=== PATIENT | male | born 1970 | race Caucasian/White ===

== ENCOUNTER 2017-06-23 12:59 | Observation (INO) | payer MEDICARE, OTHER ==
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
[2017-06-23 14:00] LABS: INR 1.02 (0.8-3.0); PROTIME 11.4 SECONDS (8.83-12.87)
[2017-06-23 14:04] LABS: BASOPHIL % 0.3 % (0.0-0.4); Eosinophil % 1.6 % (0.00-5.0); Lymphocytes % 16.7 % (24.0-44.0); Mean Cell Volume 83.9 fl (78-100); Monocytes % 10.4 % (0.0-12.0); Platelet Count 279 K/mm3 (150-450); Red Blood Count 5.35 M/mm3 (4.1-5.6); Red Cell Distribution Width 13.1 % (11.5-14.0); White Blood Count 9.3 K/mm3 (4.0-10.5)
[2017-06-23 14:10] LABS: ALBUMIN 3.8 g/dL (3.4-5.0); ALKALINE PHOSPHATASE 115 U/L (46-116); ANION GAP 13.4 MEQ/L (5-15); BLOOD UREA NITROGEN 16 mg/dL (9-20); CHLORIDE 99 mEq/L (98-107); Carbon Dioxide 27.4 mEq/L (21-32); ETHYL ALCOHOL < 0.010 % (0.00-0.01); Glucose 277 MG/DL (70-110); LIPASE 105 U/L (73-393); MAGNESIUM 2.1 mg/dL (1.8-2.4); SGOT/AST 15 U/L (15-37); SGPT/ALT 23 U/L (12-78); SODIUM 136 mEq/L (136-145); Total Protein 7.7 gm/dL (6.4-8.2)
[2017-06-23 14:18] LABS: ACETAMINOPHEN < 2.0 ug/ml (10-30)
[2017-06-23] MEDS ORDERED: THIAMINE 200 MG/2 ML IM ONE (14:57)
[2017-06-23] MEDS ORDERED: THIAMINE 200 MG/2 ML ONE (15:09)
[2017-06-23 15:33] LABS: Bilirubin NEGATIVE (NEGATIVE); Blood NEGATIVE Ery/ul (0-5); COMPLETE URINE MICROSCOPIC? YES; Collection Type VOID; Glucose 1000 mg/dL (NEGATIVE); Leukocyte Esterase NEGATIVE (NEGATIVE)
[2017-06-23 15:34] LABS: ADD URINE CULTURE? NO (NO); Bacteria RARE /HPF (NEGATIVE); Epithelial Cells RARE /HPF (FEW)
[2017-06-23] MEDS ORDERED: Sodium Chloride 0.9% 1000 ML 1,000 ML IV SCH (16:50)
[2017-06-23] MEDS ORDERED: TYLENOL 325 MG PO PRN (16:50)
[2017-06-23] MEDS ORDERED: NovoLIN R SQ PRN (16:50)
[2017-06-23 16:57] VITALS: BP 140/93; PULSE 75; O2SAT 93
[2017-06-23] MEDS ORDERED: Sodium Chloride 0.9% 1000 ML 1,000 ML ONE (17:23)
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
--- NOTE | 2017-06-23 19:24 | XRAY ---
Indication: Disorientation. Altered mental status. Multiple contiguous axial images obtained through the head without contrast. Comparison: None. Normal appearing brain parenchyma, ventricles, and bony calvarium. Visualized paranasal sinuses and mastoid air cells are clear. Impression: Normal CT head without contrast exam. Comment: Preliminary interpretation was made by [facility]. No discrepancy. CTDI 68.81
== END 2017-06-23 18:10 | disposition left against medical advice (07) ==
LOC: ED 12:59 → MED SURG 16:45
PROVIDERS: ADMIT General Practice; ATTEND General Practice
DX: R41.0 Disorientation, unspecified (principal); E11.9 Type 2 diabetes mellitus without complications; Z72.0 Tobacco use
CPT/HCPCS: 93041; 96372; 99285; 36000; 93005; 81000; 85610; 36415; 83690; 83735; 80307 ×2; 85025; 80053; 84484; 71010; 70450; G0481 ×2; G0378

== ENCOUNTER 2018-01-08 19:51 | Emergency (ER) | payer MEDICARE ==
[2018-01-08] MEDS ORDERED: KEFLEX 500 MG PO ONE (19:59)
[2018-01-08] MEDS ORDERED: XYLOCAINE 1% HCL 20 ML MDV IJ ONE (19:59)
[2018-01-08] MEDS ORDERED: Adacel Vial IM ONE ×2 (19:59→20:08)
[2018-01-08] MEDS ORDERED: XYLOCAINE 1% HCL 20 ML MDV ONE (20:04)
--- NOTE | 2018-01-08 20:05 | ERPHSYRPT ---
- History of Present Illness Time Seen by Provider: 01/08/18 19:55 Source: patient, other (spouse) Exam Limitations: no limitations Physician History: Pt noticed painful lumps growing in his left armpit 3 days ago, it started draining pus today. He denies fever, chills, headaches, vomiting, other complaints. Timing/Duration: day(s) (3) Quality: painful Severity: moderate Location: axillary (L) Possible Causes: no cause identified Modifying Factors: Improves With: other (none) Associated Symptoms: denies symptoms Allergies/Adverse Reactions: No Known Drug Allergies Allergy (Verified 01/08/18 20:04) Hx Tetanus, Diphtheria Vaccination/Date Given: No Hx Influenza Vaccination/Date Given: No Hx Pneumococcal Vaccination/Date Given: Yes - Review of Systems Constitutional: No Symptoms Skin: Other (abscesses in left armpit) All Other Systems: Reviewed and Negative - Past Medical History Pertinent Past Medical History: Yes Cardiac History: Hypertension Endocrine Medical History: Diabetes Type II Other Medical History: poor historian - Past Surgical History Past Surgical History: Yes Gastrointestinal: Appendectomy Musculoskeletal: Orthopedic Surgery Other Surgical History: right knee surgery - Social History Smoking Status: Current some day smoker Exposure to second hand smoke: Yes Drug Use: none Patient Lives Alone: No - Nursing Vital Signs Nursing Vital Signs: Initial Vital Signs Temperature 98.4 F 01/08/18 19:55 Pulse Rate 109 H 01/08/18 19:55 Respiratory Rate 18 01/08/18 19:55 Blood Pressure 185/114 01/08/18 19:55 O2 Sat by Pulse Oximetry 97 01/08/18 19:55 Pain Scale Pain Intensity 10 - Physical Exam General Appearance: no apparent distress Eye Exam: eyes nml inspection Ears, Nose, Throat Exam: normal ENT inspection Neck Exam: normal inspection, non-tender, supple Respiratory Exam: normal breath sounds, lungs clear, airway intact, No chest tenderness, No respiratory distress Cardiovascular Exam: regular rate/rhythm, normal heart sounds, normal peripheral pulses, No murmur Gastrointestinal/Abdomen Exam: soft, normal bowel sounds, No tenderness Back Exam: normal inspection, No CVA tenderness Extremity Exam: normal inspection, other (3 abscesses in the left armpit, one one the anterior pectoral fold, the one in the armpit is draining pus, sizes 2- 3 cm each. The skin is indurated in the armpit alltogether, but no severe edema , or redness, good distal pulses and sensaation.) Neurologic Exam: alert, oriented x 3 Skin Exam: normal color, warm, dry, No rash Lymphatic Exam: No adenopathy SpO2 Interpretation: normal Oxygen Delivery: Room Air Procedures - Incision and Drainage Timeout: Performed Site: left armpit Anesthesia: 1% Lidocaine cc's of anesthesia: other (15) Blade Size: 11 I & D Procedure: betadine prep Results: moderate amount pus Progress: all three abscesses opened with scalpel with 1-2 cm incisions, pus and necrotic tissues removed with gauze pad wiping, and abundant saline irrigation, 1/2 inch packing filled in cavities, bleeding controlled, patient tolerated it well. - Course Nursing assessment & vital signs reviewed: Yes Ordered Tests: Active Orders 24 hr Category Date Time Status ACCUCHECK [Accucheck] STAT Care 01/08/18 20:05 Active CULTURE,WOUND Stat Lab 01/08/18 21:39 Received Medication Summary Discontinued Medications Generic Name Dose Route Start Last Admin Trade Name Beba PRN Reason Stop Dose Admin Hydrocodone Bitart/Acetaminophen 1 tab 01/08/18 21:40 01/08/18 21:47 [place] 5/325 Mg PO 01/08/18 21:41 1 tab STAT ONE Administration Hydrocodone Bitart/Acetaminophen Confirm 01/08/18 21:41 [place] 5/325 Mg Administered 01/08/18 21:42 Dose 1 tab .ROUTE .STK-MED ONE Cephalexin HCl 500 mg 01/08/18 19:59 01/08/18 20:20 Keflex 500 Mg PO 01/08/18 20:00 500 mg STAT ONE Administration Cephalexin HCl Confirm 01/08/18 20:08 Keflex 500 Mg Administered 01/08/18 20:09 Dose 500 mg .ROUTE .STK-MED ONE Diphtheria/Tetanus/Acell Pertussis 0.5 ml 01/08/18 19:59 01/08/18 20:19 Adacel Vial IM 01/08/18 20:00 0.5 ml .ONCE ONE Administration Diphtheria/Tetanus/Acell Pertussis Confirm 01/08/18 20:08 Adacel Vial Administered 01/08/18 20:09 Dose 0.5 ml IM .STK-MED ONE Insulin Human Regular 10 unit 01/08/18 20:42 01/08/18 21:04 Novolin R SQ 01/08/18 20:43 10 unit STAT ONE Administration Insulin Human Regular Confirm 01/08/18 21:03 Novolin R Administered 01/08/18 21:04 Dose 10 unit .ROUTE .STK-MED ONE Lidocaine HCl 5 ml 01/08/18 19:59 01/08/18 20:20 Xylocaine 1% Hcl 20 Ml Mdv IJ 01/08/18 20:00 5 ml STAT ONE Administration Lidocaine HCl Confirm 01/08/18 20:04 Xylocaine 1% Hcl 20 Ml Mdv Administered 01/08/18 20:05 Dose 20 ml .ROUTE .STK-MED ONE - Progress Progress: improved Progress Note: 01/08/18 21:43 Accuceck was 479, he admits not taking his diabetic medications, he was administered 10 U Insulin SQ. 01/08/18 22:20 Blood sugar rechecked: 336, feels better, will discharge in stable condition, to return after 2 days to remove the packings or in case of severe pain, bleeding or fever> 102 F. 01/08/18 22:22 He was also given 1x 5/325 mg R[place] PO, Keflex 500mg and Bactrim DS x1. - Departure Time of Disposition: 22:21 Departure Disposition: Home Clinical Impression: Abscess of axillary region Condition: Stable Critical Care Time: No Referrals: RIAN JOHN MD [ACTIVE STAFF] - Instructions: MRSA (DC), Abscess Incision and Drainage (DC) Additional Instructions: Rest x 2-3 days, change sterile dressing daily, return after 2 days to remove packings! Return if severe pain, bleeding or fever> 102 F! Prescriptions: Cephalexin Mh 500 mg [Keflex 500 mg] 500 mg PO TID #30 capsule Sulfamethoxazole/Trimethoprim [Bactrim Ds Tablet] 1 each PO BID #20 tablet
[2018-01-08] MEDS ORDERED: KEFLEX 500 MG ONE (20:08)
[2018-01-08] MEDS ORDERED: NovoLIN R SQ ONE (20:42)
[2018-01-08] MEDS ORDERED: NovoLIN R ONE (21:03)
[2018-01-08] MEDS ORDERED: NORCO 5/325 MG PO ONE (21:40)
[2018-01-08] MEDS ORDERED: NORCO 5/325 MG ONE (21:41)
[2018-01-08] MEDS ORDERED: BACTRIM DS TABLET PO STA (22:21)
[2018-01-08] MEDS ORDERED: BACTRIM DS TABLET PO ONE (22:23)
[2018-01-08 22:47] VITALS: BP 136/87; PULSE 89; O2SAT 95
== END 2018-01-08 22:46 | disposition home or self-care (01) ==
LOC: ED 19:51
DX: L02.412 Cutaneous abscess of left axilla (principal); E11.9 Type 2 diabetes mellitus without complications
CPT/HCPCS: 10060; 82962; 87070; 87077; 87186; 90471; 90715; 96372; 99284; A9270-GY

== ENCOUNTER 2018-03-03 12:48 | Inpatient (IN) | payer MEDICARE ==
[2018-03-03] MEDS ORDERED: Zofran 4 MG/2 ML VIAL IV PRN (13:20)
[2018-03-03] MEDS ORDERED: Hydromorphone 1 mg/ml Ampule IV PRN (13:21)
[2018-03-03] MEDS ORDERED: TYLENOL 325 MG PO PRN (13:23)
[2018-03-03] MEDS ORDERED: DILAUDID 2 MG INJECTION IV PRN (13:27)
[2018-03-03] MEDS ORDERED: PHARMACY DOSING REQUIRED: VANCOMYCIN IV ONE (13:36)
[2018-03-03] MEDS ORDERED: PHARMACY DOSING REQUEST MC ONE (13:37)
[2018-03-03] MEDS: Sodium Chloride 0.9% 1000 ML 1,000 ML IV SCH (14:20)
[2018-03-03] MEDS: VANCOCIN 1 GM VIAL*** 1 GM in Sodium Chloride 0.9% 250 ML 250 ML IV SCH ×2 (14:20→22:04)
[2018-03-03 14:43] LABS: Hematocrit 39.4 % (42-50); Hemoglobin 13.8 gm/dl (12.5-18.0); Mean Cell Volume 83.3 fl (78-100); Mean Corpuscular Hemoglobin 29.2 pg (26-32); Mean Platelet Volume 10.4 fl (6-9.5); Platelet Count 312 K/mm3 (150-450); Red Blood Count 4.73 M/mm3 (4.1-5.6); Red Cell Distribution Width 12.7 % (11.5-14.0)
[2018-03-03 15:05] LABS: ALBUMIN 3.6 g/dL (3.5-5.0); ALKALINE PHOSPHATASE 258 U/L (38-126); ANION GAP 14.6 MEQ/L (5-15); BLOOD UREA NITROGEN 14 mg/dL (9-20); CHLORIDE 88 mmol/L (98-107); Calcium 8.8 mg/dL (8.4-10.2); Carbon Dioxide 27 mmol/L (22-30); Creatinine 1 0.86 mg/dL (0.66-1.25); Potassium 4.3 mmol/L (3.5-5.1); SGOT/AST 16 U/L (17-59); SGPT/ALT 24 U/L (0-50); SODIUM 125 mmol/L (137-145); Total Protein 6.9 g/dL (6.3-8.2)
--- NOTE | 2018-03-03 15:09 | XRAY ---
Indication: Back abscess. Multiple contiguous axial images obtained through the chest without contrast as ordered. Cutaneous marker placed over the region of interest. Comparison: None The left back demonstrates large area of cutaneous/subcutaneous induration presumed inflammatory/infectious with small subcutaneous fluid. The majority of the left latissimus dorsi muscle is also prominent and possibly reactive. Lack of contrast precludes further characterization. No obvious walled off fluid collection, air bubbles, or osseous destructive process. There are a few prominent fatty left axillary lymph nodes, largest 1.5 x 3.5 cm presumed reactive. Examination of the lung parenchyma demonstrates minimal lingular and medial right middle lobe fibrosis/scarring. Tiny left apical calcified granuloma. No suspicious pulmonary mass, infiltrate, or effusion. Heart is not enlarged. Aorta is normal in course and caliber. [place] left hilar calcified nodes. No pathologic mediastinal lymphadenopathy. Bony thorax intact with minimal degenerative changes throughout the spine. No suspicious bony lesions. Limited upper abdomen demonstrates a few tiny calcified splenic granulomas. Spleen is enlarged measuring 14.2 cm in greatest axial dimension. Impression: 1. Large area of subcutaneous and deep soft tissue induration/inflammation involving the left back as detailed. Small subcutaneous fluid but no walled off fluid collection or air bubbles to suggest abscess on this noncontrast exam. Prominent left axillary lymph nodes presumed reactive. 2. No acute cardiopulmonary abnormalities. 3. Incidental splenomegaly and evidence for granulomatous disease. CT DI 21.10
[2018-03-03 15:15] LABS: Glucose 500 mg/dL (74-106)
[2018-03-03] MEDS: Lantus Insulin SQ SCH (15:43)
[2018-03-03] MEDS: NovoLOG Insulin SQ PRN ×3 (15:43→23:27)
[2018-03-03] MEDS ORDERED: Lactated Ringers 1,000 ML IV ONE (15:59)
[2018-03-03] MEDS ORDERED: Lactated Ringers 1,000 ML IV SCH (16:30)
[2018-03-03] MEDS ORDERED: Sodium Chloride 0.9% 1000 ML 1,000 ML ONE (16:41)
[2018-03-03] MEDS ORDERED: TRANDATE 100 MG/20 ML MDV FOR DRIP IV ONE (17:48)
[2018-03-03] MEDS: Zosyn 3.375GM/100 Ml D5W 3.375 GM/100 ML IVPB IV SCH ×2 (18:35→23:59)
[2018-03-04] MEDS: NORCO 5/325 MG PO PRN ×4 (00:02→21:42)
[2018-03-04] MEDS: Sodium Chloride 0.9% 1000 ML 1,000 ML IV SCH ×2 (03:33→17:35)
[2018-03-04 05:59] LABS: Hemoglobin 11.8 gm/dl (12.5-18.0); Mean Corpuscular Hgb Concent. 33.7 g/dl (32-36); Mean Platelet Volume 9.8 fl (6-9.5); Platelet Count 302 K/mm3 (150-450); Red Blood Count 4.07 M/mm3 (4.1-5.6); Red Cell Distribution Width 12.7 % (11.5-14.0); White Blood Count 21.5 K/mm3 (4.0-10.5)
[2018-03-04 06:05] LABS: Mean Corpuscular Hemoglobin 28.9 pg (26-32)
[2018-03-04] MEDS: Zosyn 3.375GM/100 Ml D5W 3.375 GM/100 ML IVPB IV SCH ×4 (06:18→22:47)
[2018-03-04] MEDS: VANCOCIN 1 GM VIAL*** 1 GM in Sodium Chloride 0.9% 250 ML 250 ML IV SCH ×3 (06:45→21:41)
[2018-03-04] MEDS: Lantus Insulin SQ SCH (07:58)
[2018-03-04] MEDS: NovoLOG Insulin SQ PRN ×4 (08:11→21:42)
[2018-03-04] MEDS ORDERED: Lantus Insulin SQ ONE (08:15)
--- NOTE | 2018-03-04 08:33 | XRAY ---
Indication: Drowsiness. Status post abscess drainage. Multiple contiguous axial images obtained through the head without contrast. Comparison: June 23, 2017. Again normal appearing brain parenchyma, ventricles, and bony calvarium. Visualized paranasal sinuses and mastoid air cells are clear. Impression: Normal CT head without contrast exam. CT DI 67.60
--- NOTE | 2018-03-04 08:43 | CONS ---
CONSULT DATE: 03/03/2018 This patient is seen for Dr. Yang Ferris who was neonatal specialist for our group today. HISTORY: This is a 47 year-old gentleman apparently a poorly controlled diabetic, thought he was bit by something in his upper and lower back three days ago with increased pain, redness, swelling and some drainage. He was running a fever yesterday, slurring some words. It was direct admit by Dr. Lincoln. He also has got a small area up on his back. The family reported he had some infection drained a few months ago, a little vague on the details. PAST MEDICAL HISTORY: Obesity, hypertension, diabetes mellitus type 2. MEDICATIONS: He apparently does not take any medications. ALLERGIES: NKDA. FAMILY HISTORY: Seizure disorder in the family it sounds like. SOCIAL HISTORY: No smoking or chew tobacco. REVIEW OF SYSTEMS: Twelve systems reviewed per admission assessment, history and physical and as noted above. No current chest pain or palpitations other systems negative or noncontributory as above and per preadmission questionnaire. He did have blood sugar 500 earlier and is down to 300 now. His temperature is 100.6F at his family doctor earlier. He had a blood pressure 130/60, pulse 78. PHYSICAL EXAMINATION: GENERAL: A chronically ill gentleman noncompliant diabetic. NECK: No JVD. Posterior upper neck has got a purulent area likely underlying small abscess. BACK: Upper back towards the left lateral area large indurated with some drainage and some purulence consistent with abscess whether from infected cyst, whether from bite or other etiology is unclear. CHEST: Equal excursion, nonlabored breathing. CVS: Regular rate and rhythm. ABDOMEN: Obese, soft. EXTREMITIES: He has some healed sores on his lower extremities. NEURO: He is moving extremities symmetrically. LAB DATA AND TESTS: His blood sugar was 500 and is down to 300 and some. Lactic acid 1.6. White blood cell count 22, hemoglobin 13.8. IMPRESSION: Left flank infection upper back, flank area infection/cellulitis likely underlying abscess whether from infected ruptured cyst versus bite or other etiology as well as much smaller area upper posterior neck. He would benefit from drainage and debridement of these areas and cultures. Risks and benefits explained in detail but not limited to bleeding or infection, risk of ongoing infection possibly requiring other procedures, general risk of anesthesia, deep venous thrombosis, pulmonary embolism or pneumonia. The fact that he would need to keep his blood sugars tighter control and continue management after debridement and drainage. He would need packing. He could heal by secondary intent. The wound care team would decide whether vac or other treatments would benefit. They understand. Again, this patient was seen for Dr. Yang Ferris who asked that I stop by to see him and address the infection as he is neonatal specialist for our group today and he is tied up in [place] at the moment. If agreeable to proceed will proceed with debridement and drainage of back and posterior neck infection and wounds.
--- NOTE | 2018-03-04 09:10 | OP ---
SURGERY DATE/TIME: 03/03/2018 1622 This patient was seen for Dr. Yang Ferris who was consulting marine engineer for our group and asked that I stop by and check on his noncompliant diabetic with extensive infection. PREOPERATIVE DIAGNOSIS: Necrotizing infection, sepsis, abscesses neck, back and left axilla. POSTOPERATIVE DIAGNOSIS: Necrotizing infection, sepsis, abscesses neck, back and left axilla. PROCEDURE: 1) Excisional debridement of devitalized skin, subcutaneous fat and fascia area 15 x 11 x 2.5 to 3 cm deep on the back. 2) The axilla 3.5 x 2 cm wide by 1.5 cm deep skin, subcutaneous fat and underlying fascia (also removal of foreign body retained packing in this wound). 3) Excisional biopsy of skin, subcutaneous fat and portion of underlying devitalized fascia 2.5 x 2 cm wide by 2 cm deep posterior upper neck. SURGEON: Dr. Frank Palm. ANESTHESIA: General. ESTIMATED BLOOD LOSS: Minimal. INDICATIONS: As noted above. Risks and benefits explained in detail and not limited to and consent obtained. DESCRIPTION OF PROCEDURE AND FINDINGS: The patient is taken to the operating room. He was draining more in his axilla and it was felt that this ought to be opened under general anesthetic. He was prepped and draped in usual sterile fashion. Lateral position per anesthesia and OR staff positioning. After official time out and no disagreement with planned procedure, starting with the neck initially dime-sized opening was made this required extension as he had some foul purulence underneath with some devitalized fascia and that required excisional debridement of devitalized subcutaneous fat and skin an area about 2.5 cm long, 2 cm wide, 2 cm deep. Hemostasis obtained with pin point cautery. The wound is irrigated out. Appeared to be debrided down to viable tissue in all quadrants. A small piece of Surgicel with some saline soaked wet to dry packing placed. Attention is then turned to the left axilla this is a large fluctuant open area draining a large amount of purulence. Debrided the skin 3.5 cm to 2 cm wide, debriding the devitalized subcutaneous fat underneath and a portion of the underlying fascia about 1.5 cm deep. It should be noted that there was 0.5 inch retained packing in this wound that passed off. Appeared to be viable tissue in deep tissue. Pin point cautery. Small piece of Surgicel and some saline soaked wet to dry dressing placed. Attention then turned to the much larger wound on his back. It was opened with large spindled-shaped excision down to the foul necrotic subcutaneous fat, necrotic underlying fascia. This fascia debrided back to friable appearing tissue. This was an area of 15 cm long, 11 cm wide and about 2.5 to 3 cm deep. It required debriding out edges reaching what appeared to be extent of the devitalized subcutaneous fat and fascia down to viable tissue. Small pulsatile vessel in the base controlled with 3-0 Vicryl suture LigaSure otherwise pin point cautery used. Copious amount of irrigation irrigating until clear. There was no specific vessel to cauterize or ligate at this point. A small piece of Surgicel as well as wet to dry and normal saline wet to dry placed. The patient tolerated the procedure well as possible. Findings discussed with the family out in the waiting area. I will see the sandoval back in the office in a couple of weeks. In the meantime, continue starting tomorrow change packing of normal saline wet to dry and will follow this on a PRN basis as needed. Continue antibiotics. Disposition per his medical physician. Continue normal saline wet to dry until the wound team has any other recommendations. He might need a vac-type apparatus on his back in particular. Again, this patient was seen for Dr. Yang Ferris who is consulting marine engineer for our group today.
[2018-03-04] MEDS ORDERED: SUBLIMAZE 250 MCG/5 ML IJ ONE (09:51)
[2018-03-04] MEDS: ENOXAPARIN SODIUM SQ SCH (11:02)
[2018-03-04 12:28] LABS: ALKALINE PHOSPHATASE 209 U/L (38-126); ANION GAP 11.4 MEQ/L (5-15); BLOOD UREA NITROGEN 15 mg/dL (9-20); CHLORIDE 95 mmol/L (98-107); Carbon Dioxide 28 mmol/L (22-30); Creatinine 1 0.93 mg/dL (0.66-1.25); Glucose 320 mg/dL (74-106); Potassium 4.1 mmol/L (3.5-5.1); SGOT/AST 15 U/L (17-59); SGPT/ALT 19 U/L (0-50); SODIUM 130 mmol/L (137-145); Total Protein 6.3 g/dL (6.3-8.2)
[2018-03-04] MEDS: MORPHINE SULFATE 2 MG INJ IV PRN (14:14)
[2018-03-05] MEDS: VANCOCIN 1 GM VIAL*** 1 GM in Sodium Chloride 0.9% 250 ML 250 ML IV SCH ×3 (05:09→21:30)
[2018-03-05] MEDS ORDERED: TROUGH DRUG LEVELS IJ ONE (05:30)
[2018-03-05] MEDS: Zosyn 3.375GM/100 Ml D5W 3.375 GM/100 ML IVPB IV SCH ×4 (06:47→23:38)
[2018-03-05] MEDS: NORCO 5/325 MG PO PRN ×2 (06:56→22:00)
[2018-03-05] MEDS ORDERED: Lantus Insulin SQ SCH (08:00)
[2018-03-05] MEDS: NovoLOG Insulin SQ PRN ×4 (08:03→21:31)
--- NOTE | 2018-03-05 08:16 | PROG NOTE ---
DATE: 03/04/2018 Chart is reviewed and events noted. The patient underwent incision and drainage of abscess on his left upper back, left axilla and scalp area. Post-procedure he was transferred back to the medical floor. He was continued on IV antibiotics and analgesics. PHYSICAL EXAMINATION: At the time of his evaluation earlier this afternoon the patient was alert, awake, lying comfortably in bed. He denied any complaints as such, overall feeling much better, appeared comfortable. VITAL SIGNS: Blood pressure 119/61, heart rate 77, respiratory rate 18, temperature 97.7F. Oxygen saturation 93 to 94% on room air. HEENT: No pallor is present. Dressing present on posterior aspect of scalp. NECK: No JVD is present. CVS: S1, S2 present. RESPIRATORY: Breath sounds are bilaterally diminished, clear to auscultation. ABDOMEN: Obese, soft, nontender. NEURO: He is alert, awake, answers simple questions. EXTREMITIES: No edema on bilateral lower extremities. BACK: Revealed large dressing on left upper back. LABORATORY DATA AND TESTS: Labs from 03/03/2018 were notable for CBC with white blood cell of 22. Today's CBC showed white blood cell 21.5, hemoglobin 11.8 and hematocrit 35. Initial CMP was notable for sodium of 125, glucose of 500. Hemoglobin A1C was 12.60. Lactic acid was within normal limits. Today's CMP showed sodium 130, BUN 15, creatinine 0.9, glucose 320. Liver function test was essentially unremarkable except alkaline phosphatase 258 yesterday and 209 today. Work up shows gram positive organism in all three sites. Identification and sensitivities are pending. Blood cultures showed gram positive rosalie, gram negative rosalie on preliminary results. CT scan of head from 03/03/[address], no acute changes. Chest CT from yesterday showed large area of subcutaneous and deep soft tissue induration/inflammation involving left back, mild subcutaneous fluid but no walled off fluid collection or air bubbles from left axillary lymph nodes. No acute cardiopulmonary abnormality. Medications were reviewed. ASSESSMENT: A 47 year old male with impression: 1) Abscess/cellulitis left upper back status post I&D. 2) Abscess scalp status post I&D. 3) Abscess left axilla status post I&D. 4) Diabetes mellitus, suboptimally controlled. 5) Bacteremia. 6) History of noncompliance with medications. 7) Lethargy, resolved. PLAN: Continue IV antibiotics. Follow up cultures. Continue post-procedure care/dressing changes per surgery recommendations. Lantus was added. Diabetic teaching. Continue to monitor Accu-Chek. Continue to monitor serial electrolytes. Plan of care was discussed with the patient and his . They seem to be in understanding and agreement. I discussed the case with the patient's nurse, Rosalee, who was present at the time of evaluation. The patient's clinical condition, work-up results and plan of management as outlined was discussed with the patient and his . Again, compliance with medications, diet and wound care was stressed with the patient.
[2018-03-05 08:29] LABS: ANION GAP 10.3 MEQ/L (5-15); BLOOD UREA NITROGEN 15 mg/dL (9-20); CHLORIDE 98 mmol/L (98-107); Calcium 8.1 mg/dL (8.4-10.2); Carbon Dioxide 26 mmol/L (22-30); Glucose 243 mg/dL (74-106); Potassium 3.9 mmol/L (3.5-5.1); SODIUM 131 mmol/L (137-145)
[2018-03-05 08:43] LABS: Hematocrit 33.9 % (42-50); Hemoglobin 11.3 gm/dl (12.5-18.0); Mean Cell Volume 86.7 fl (78-100); Mean Corpuscular Hemoglobin 28.9 pg (26-32); Mean Corpuscular Hgb Concent. 33.3 g/dl (32-36); Mean Platelet Volume 10.5 fl (6-9.5); Platelet Count 302 K/mm3 (150-450); Red Blood Count 3.91 M/mm3 (4.1-5.6); Red Cell Distribution Width 12.7 % (11.5-14.0)
[2018-03-05] MEDS: Sodium Chloride 0.9% 1000 ML 1,000 ML IV SCH ×2 (08:45→23:38)
[2018-03-05] MEDS ORDERED: Quelicin Fliptop 200 MG/10 ML IJ ONE (09:38)
[2018-03-05] MEDS ORDERED: DIPRIVAN 200 MG/20 ML IV ONE (09:38)
[2018-03-05] MEDS: ENOXAPARIN SODIUM SQ SCH (10:22)
[2018-03-05] MEDS: MORPHINE SULFATE 2 MG INJ IV PRN (10:50)
[2018-03-05 11:15] LABS: Slide Review YES
--- NOTE | 2018-03-05 12:04 | PROG NOTE ---
DATE: 03/05/2018 Chart is reviewed and events noted. As per PT and wound care account the patient's upper back area has been draining a lot. Reportedly the patient's left ankle area was noted to have retained packing from prior abscess. The patient had not followed up. The patient states he feels okay. He denies increased pain. He denies any other new complaints. Appears comfortable. PHYSICAL EXAMINATION: VITAL SIGNS: Blood pressure 130/64, heart rate 77, respiratory rate 16, temperature 98.7F. Oxygen saturation 94%. HEENT: No pallor is present. No icterus is noted. NECK: No JVD is present. CVS: S1, S2 present. RESPIRATORY: Breath sounds are bilaterally diminished and clear to auscultation. ABDOMEN: Obese, soft, nontender. NEURO: He is alert, awake, answers simple questions. EXTREMITIES: No edema on bilateral lower extremities. LABORATORY DATA AND TESTS: Labs from today show CBC white blood cell of 17, hemoglobin 11.3, hematocrit 34, PLT 302,000. BMP notable for glucose of 243. BUN 15, creatinine 0.7. Left upper back wound culture from 03/03/2018 showed methicillin resistant staphylococcus aureus. Left axillary wound culture is pending. Calf area wound culture showed methicillin resistant staphylococcus aureus. Blood culture from 03/03/2018 was negative. Left axillary wound culture showed gram negative organism sensitivity pending. Medications were reviewed. ASSESSMENT: A 47 year old male with impression: 1) Abscess/cellulitis left upper back area status post I&D. 2) Abscess of scalp status post I&D. 3) Abscess left axilla status post I&D. 4) Diabetes mellitus suboptimally controlled. 5) Bacteremia. 6) History of noncompliance with medication. PLAN: Continue IV antibiotics. Increase Lantus to 25 units. Continue wound/postoperative care per surgery's recommendations. Likely discharge to swing-bed tomorrow. Continue to follow CBC, electrolytes. The plan was discussed with the patient. He seems to be in understanding and agreement. Discussed with trimming caser, Belinda.
[2018-03-06 05:51] LABS: Granulocyte Absolute (ANC) 9.79 (1.4-6.9); Hematocrit 34.2 % (42-50); Hemoglobin 11.6 gm/dl (12.5-18.0); Mean Cell Volume 85.3 fl (78-100); Mean Corpuscular Hemoglobin 28.9 pg (26-32); Mean Corpuscular Hgb Concent. 33.9 g/dl (32-36); Mean Platelet Volume 9.3 fl (6-9.5); Platelet Count 326 K/mm3 (150-450); Red Blood Count 4.01 M/mm3 (4.1-5.6); Red Cell Distribution Width 12.7 % (11.5-14.0); White Blood Count 12.7 K/mm3 (4.0-10.5)
[2018-03-06] MEDS: Zosyn 3.375GM/100 Ml D5W 3.375 GM/100 ML IVPB IV SCH ×2 (05:55→12:18)
[2018-03-06 06:07] LABS: ALBUMIN 2.9 g/dL (3.5-5.0); ALKALINE PHOSPHATASE 225 U/L (38-126); ANION GAP 9.1 MEQ/L (5-15); BLOOD UREA NITROGEN 12 mg/dL (9-20); CHLORIDE 99 mmol/L (98-107); Calcium 8.3 mg/dL (8.4-10.2); Carbon Dioxide 28 mmol/L (22-30); Creatinine 1 0.67 mg/dL (0.66-1.25); Glucose 256 mg/dL (74-106); Potassium 3.8 mmol/L (3.5-5.1); SGOT/AST 19 U/L (17-59); SGPT/ALT 19 U/L (0-50); SODIUM 132 mmol/L (137-145)
[2018-03-06] MEDS: VANCOCIN 1 GM VIAL*** 1 GM in Sodium Chloride 0.9% 250 ML 250 ML IV SCH ×2 (06:29→14:37)
[2018-03-06] MEDS ORDERED: Lantus Insulin SQ SCH (08:00)
[2018-03-06] MEDS: NovoLOG Insulin SQ PRN ×2 (08:04→12:21)
[2018-03-06 09:30] LABS: ANISOCYTOSIS 1+; BAND 4 % (0.0-2.0); Eosinophil 3 % (0.00-3.0); Lymphocytes 15 % (24-44); Monocyte 12 % (0.0-12.0); Neutrophils 66 % (36.-66.); Nucleated Red Blood Cell 1 %; Platelet Estimate NORMAL (NORMAL); Polychromasia 1+; Total Cells Counted 100
[2018-03-06] MEDS: ENOXAPARIN SODIUM SQ SCH (10:51)
[2018-03-06] MEDS: Sodium Chloride 0.9% 1000 ML 1,000 ML IV SCH (12:20)
[2018-03-06 13:23] VITALS: BP 160/90; PULSE 85; O2SAT 94
--- NOTE | 2018-03-07 09:15 | DS ---
DISCHARGE DIAGNOSES: 1) ABSCESS/CELLULITIS LEFT UPPER BACK STATUS POST INCISION AND DRAINAGE. 2) ABSCESS OF SCALP STATUS POST INCISION AND DRAINAGE. 3) ABSCESS LEFT AXILLA STATUS POST INCISION AND DRAINAGE. 4) DIABETES MELLITUS SUBOPTIMALLY CONTROLLED. 5) BACTEREMIA. 6) HISTORY OF NONCOMPLIANCE WITH MEDICATIONS. 7) LETHARGY, RESOLVED. CONSULTANTS ON CASE: Dr. Palm, Surgery. HOSPITAL COURSE: Aston Villa is a 47 year-old male with past medical history of diabetes mellitus. Reportedly he has stopped taking all of his medicines some time back. Also he was treated for abscess-like area in his left axilla back in December 2017 and did follow up in Dr. Alicia's office for further management of same. I am covering for Dr. Alicia this week and the patient was seen by me in the office on 03/03/2018 with large draining, painful area on left upper back and also abscess on back of his head. As per patient and his these had started two or three days ago. There was no reported history of injury or unusual activity. The patient was noted to be lethargic. The patient was admitted for further work up and management. Lab work up on admission was notable for CBC with white blood cell of 22,000. CMP with sodium 125, glucose 500. Hemoglobin A1C of 12.60. Also, he was noted to be febrile. Lactic acid was within normal limits. He was placed on IV fluids, broad spectrum IV antibiotics. Surgical consultation was requested and the patient underwent I&D of above area. Please refer to my office note from that day for details. Surgical consultation was requested on the patient for I&D of left upper back abscess/cellulitis area as well as I&D of scalp abscess. Additionally he was noted to have prior packing in left axilla abscess there and underwent I&D of the same as well. Post-procedure, he was transferred back to medical floor and was continued on IV antibiotics. He had been started on Lantus and additionally placed on sliding scale and diabetic teaching was provided. He underwent CT scan of chest on 03/03/2018 and that showed large area of subcutaneous and deep soft tissue inflammation/infection involving the left back, small subcutaneous fluid with no walled off fluid collection or air bubbles. No acute cardiopulmonary abnormalities. Additionally in view of his lethargy he had undergone CT scan of his head and that was normal CT. Post-procedure care was continued strictly per surgical recommendations. Also wound care consultation was requested and PT managed wound care per surgery recommendations. During his subsequent course his neck, left upper back as well as axillary wounds were identified to grow methicillin resistant staphylococcus aureus. The patient had already been started on Zosyn and Vancomycin upon admission and those were continued. Blood cultures from 03/03/2018 were negative. However the other culture was noted to have gram-positive cocci in chains and few gram-negative rods. Additional study results are pending. During subsequent course was notable for elevated Accu-Chek for which he was treated accordingly. The rest of his course was essentially more or less unremarkable. He improved clinically. He remained hemodynamically stable. His symptoms of lethargy had resolved. It was discussed with the patient and the extensive nature of his abscess areas and wound care needed as well as need for IV antibiotics and the patient's prior compliance issues, the patient would benefit from swing-bed stay. The patient and his were agreeable with that. After discussion with all consultants on the case the patient was discharged to swing-bed earlier this afternoon. PHYSICAL EXAMINATION: At the time of evaluation prior the patient's discharge he was alert, awake, lying comfortably in bed. He denied any complaints. VITAL SIGNS: Blood pressure 160/90, heart rate 85, respiratory rate 18, temperature 98F. HEENT: No pallor or icterus is noted. NECK: No JVD is present. CVS: S1, S2 present. RESPIRATORY: Breath sounds are bilaterally diminished. ABDOMEN: Obese, soft, nontender. NEURO: He is alert, awake, answers simple questions. EXTREMITIES: No edema on bilateral lower extremities. SKIN: Dressing was present on posterior aspect of scalp (occipital area), left upper back as well as left axilla. LABORATORY DATA AND TESTS: Labs from today showed CBC white blood cell 12.7, hemoglobin 11.6, hematocrit 34.2, PLT 86,000, neutrophils 66, bands 4, lymphocytes 15. CMP was notable for sodium 132, glucose 256, BUN 12, creatinine 0.67, alkaline phosphatase 225. Medications were reviewed. ASSESSMENT: As outlined in discharge diagnoses. PLAN: The patient was admitted with multiple abscesses and uncontrolled diabetes mellitus. He underwent I&D and had been placed on broad spectrum IV antibiotics. All abscess cultures were growing methicillin resistant staphylococcus aureus. He will be continued on Vancomycin. Additionally in view of the patient's bacteremia, the patient will be continued on Zosyn. He appears to be improved clinically however still does continue to need extensive wound care and IV antibiotic. It was discussed with patient and regarding swing-bed stay and they were agreeable with that. The patient was discharged to swing-bed earlier today. He will be admitted under my care. Please refer to discharge medication list from 03/06/2018 for details of medications on discharge. The patient's clinical condition, work-up results and plan of management including plan of discharge were discussed with patient and his . They seem to be in understanding and agreement. The plan was discussed with patient's nurse and also discussed with nurse outreach case manager, Belinda Bobo.
== END 2018-03-06 15:30 | disposition swing bed (61) | DRG 570 ==
LOC: MED SURG 13:02
PROVIDERS: ADMIT General Practice; ATTEND General Practice
PROC: 0JB70ZZ Excision of Back Subcutaneous Tissue and Fascia, Open Approach (ICD-10-PCS; principal; 2018-03-03)
PROC: 0JB50ZZ Excision of Left Neck Subcutaneous Tissue and Fascia, Open Approach (ICD-10-PCS; 2018-03-03)
PROC: 0J9F0ZX Drainage of Left Upper Arm Subcutaneous Tissue and Fascia, Open Approach, Diagnostic (ICD-10-PCS; 2018-03-03)
DX: L02.212 Cutaneous abscess of back [any part, except buttock and flank] (principal); A41.9 Sepsis, unspecified organism; L02.11 Cutaneous abscess of neck; L02.811 Cutaneous abscess of head [any part, except face]; L02.412 Cutaneous abscess of left axilla; R78.81 Bacteremia; L03.312 Cellulitis of back [any part except buttock and flank]; E11.65 Type 2 diabetes mellitus with hyperglycemia; Z91.14 Patient's other noncompliance with medication regimen; R53.83 Other fatigue; I10 Essential (primary) hypertension; B95.62 Methicillin resistant Staphylococcus aureus infection as the cause of diseases classified elsewhere
CPT/HCPCS: 36415; 70450; 71250; 80048; 80053; 80202; 82962; 83036; 83605; 85025; 85027; 87040; 87070; 87077; 87186; 94760; 99140; J0330; J1170; J1650; J2270; J2405; J2543; J2704; J3010; J3370; A9270-GY

== ENCOUNTER 2018-03-06 15:07 | Inpatient (IN) | payer MEDICARE ==
[2018-03-06] MEDS ORDERED: NORCO 5/325 MG PO PRN (16:05)
[2018-03-06] MEDS ORDERED: Zofran 4 MG/2 ML VIAL IV PRN (16:05)
[2018-03-06] MEDS ORDERED: MORPHINE SULFATE 2 MG INJ IV PRN (16:05)
[2018-03-06] MEDS: Sodium Chloride 0.9% 1000 ML 1,000 ML IV SCH (17:20)
[2018-03-06] MEDS: Zestril 5 MG PO SCH (17:20)
[2018-03-06] MEDS: NovoLOG Insulin SQ PRN ×2 (17:22→20:56)
[2018-03-06] MEDS: Zosyn 3.375GM/100 Ml D5W 3.375 GM/100 ML IVPB IV SCH ×2 (17:22→23:47)
[2018-03-06] MEDS: VANCOCIN 1 GM VIAL*** 1 GM in Sodium Chloride 0.9% 250 ML 250 ML IV SCH (20:56)
[2018-03-07] MEDS: Zosyn 3.375GM/100 Ml D5W 3.375 GM/100 ML IVPB IV SCH ×4 (05:16→23:47)
[2018-03-07 05:59] LABS: Granulocyte Absolute (ANC) 12.05 (1.4-6.9); Hematocrit 34.6 % (42-50); Hemoglobin 11.9 gm/dl (12.5-18.0); Mean Corpuscular Hemoglobin 29.2 pg (26-32); Mean Corpuscular Hgb Concent. 34.4 g/dl (32-36); Mean Platelet Volume 9.2 fl (6-9.5); Platelet Count 391 K/mm3 (150-450); Red Blood Count 4.07 M/mm3 (4.1-5.6); Red Cell Distribution Width 12.6 % (11.5-14.0); White Blood Count 15.4 K/mm3 (4.0-10.5)
[2018-03-07] MEDS: VANCOCIN 1 GM VIAL*** 1 GM in Sodium Chloride 0.9% 250 ML 250 ML IV SCH ×3 (06:04→21:38)
[2018-03-07 06:24] LABS: ANION GAP 12.7 MEQ/L (5-15); BLOOD UREA NITROGEN 13 mg/dL (9-20); CHLORIDE 99 mmol/L (98-107); Calcium 8.7 mg/dL (8.4-10.2); Carbon Dioxide 27 mmol/L (22-30); Creatinine 1 0.77 mg/dL (0.66-1.25); Glucose 219 mg/dL (74-106); Potassium 3.9 mmol/L (3.5-5.1); SODIUM 135 mmol/L (137-145)
[2018-03-07 07:16] LABS: BAND 16 % (0.0-2.0); Basophil 1 % (0.0-1.0); Eosinophil 1 % (0.00-3.0); Lymphocytes 10 % (24-44); Metamyelocyte 5 %; Monocyte 9 % (0.0-12.0); Myelocyte 1 %; Neutrophils 57 % (36.-66.); Platelet Estimate NORMAL (NORMAL); Polychromasia 1+; Total Cells Counted 100
[2018-03-07] MEDS: NovoLOG Insulin SQ PRN ×4 (08:21→21:38)
[2018-03-07] MEDS: Lantus Insulin SQ SCH (08:22)
[2018-03-07] MEDS: Zestril 5 MG PO SCH (10:16)
[2018-03-07] MEDS: ENOXAPARIN SODIUM SQ SCH (10:16)
[2018-03-08] MEDS: Zosyn 3.375GM/100 Ml D5W 3.375 GM/100 ML IVPB IV SCH ×3 (05:14→18:15)
[2018-03-08] MEDS: Sodium Chloride 0.9% 1000 ML 1,000 ML IV SCH (05:19)
[2018-03-08] MEDS: TYLENOL 325 MG PO PRN ×2 (05:25→21:02)
[2018-03-08] MEDS: VANCOCIN 1 GM VIAL*** 1 GM in Sodium Chloride 0.9% 250 ML 250 ML IV SCH ×3 (05:55→21:01)
[2018-03-08] MEDS: NovoLOG Insulin SQ PRN ×4 (08:15→21:07)
[2018-03-08] MEDS: Lantus Insulin SQ SCH (08:16)
[2018-03-08] MEDS: Zestril 5 MG PO SCH (11:52)
[2018-03-08] MEDS: ENOXAPARIN SODIUM SQ SCH (11:53)
[2018-03-09] MEDS: Zosyn 3.375GM/100 Ml D5W 3.375 GM/100 ML IVPB IV SCH ×4 (00:03→18:39)
[2018-03-09] MEDS: VANCOCIN 1 GM VIAL*** 1 GM in Sodium Chloride 0.9% 250 ML 250 ML IV SCH ×3 (06:30→21:45)
[2018-03-09] MEDS: NovoLOG Insulin SQ PRN ×4 (08:05→22:08)
[2018-03-09] MEDS: Lantus Insulin SQ SCH (08:06)
[2018-03-09] MEDS: ENOXAPARIN SODIUM SQ SCH (10:06)
[2018-03-09] MEDS: Zestril 5 MG PO SCH (10:06)
[2018-03-10] MEDS: Zosyn 3.375GM/100 Ml D5W 3.375 GM/100 ML IVPB IV SCH ×5 (00:19→23:25)
[2018-03-10] MEDS: VANCOCIN 1 GM VIAL*** 1 GM in Sodium Chloride 0.9% 250 ML 250 ML IV SCH ×3 (05:49→21:37)
[2018-03-10 06:03] LABS: Granulocyte Absolute (ANC) 11.86 (1.4-6.9); Hematocrit 34.1 % (42-50); Hemoglobin 11.5 gm/dl (12.5-18.0); Mean Cell Volume 86.1 fl (78-100); Mean Corpuscular Hgb Concent. 33.7 g/dl (32-36); Mean Platelet Volume 9.3 fl (6-9.5); Platelet Count 423 K/mm3 (150-450); Red Blood Count 3.96 M/mm3 (4.1-5.6); White Blood Count 15.2 K/mm3 (4.0-10.5)
[2018-03-10 06:22] LABS: ALBUMIN 3.3 g/dL (3.5-5.0); ALKALINE PHOSPHATASE 184 U/L (38-126); ANION GAP 13.3 MEQ/L (5-15); BLOOD UREA NITROGEN 15 mg/dL (9-20); CHLORIDE 100 mmol/L (98-107); Calcium 8.4 mg/dL (8.4-10.2); Carbon Dioxide 26 mmol/L (22-30); Creatinine 1 0.81 mg/dL (0.66-1.25); Glucose 231 mg/dL (74-106); Potassium 3.9 mmol/L (3.5-5.1); SGOT/AST 17 U/L (17-59); SGPT/ALT 29 U/L (0-50); SODIUM 135 mmol/L (137-145); Total Protein 6.6 g/dL (6.3-8.2)
[2018-03-10] MEDS: NovoLOG Insulin SQ PRN ×4 (07:46→21:38)
[2018-03-10] MEDS: Lantus Insulin SQ SCH (07:46)
[2018-03-10 07:47] LABS: Eosinophil 2 % (0.00-3.0); Lymphocytes 24 % (24-44); Monocyte 6 % (0.0-12.0); Neutrophils 68 % (36.-66.); Total Cells Counted 100
[2018-03-10 07:48] LABS: Platelet Estimate NORMAL (NORMAL); Toxic Granulation 1+
[2018-03-10] MEDS: TYLENOL 325 MG PO PRN (08:16)
[2018-03-10] MEDS: Zestril 5 MG PO SCH (09:33)
[2018-03-10] MEDS: ENOXAPARIN SODIUM SQ SCH (09:33)
--- NOTE | 2018-03-10 11:27 | PROG NOTE ---
DATE: 03/07/2018 Chart is reviewed and events noted. At the time of my evaluation this afternoon the patient was alert, awake, lying comfortably in bed. He denied any complaints. PHYSICAL EXAMINATION: VITAL SIGNS: Blood pressure 155/75, heart rate 69, respiratory rate 20, temperature 97.9F. Oxygen saturation 96% on room air. HEENT: Pallor present. No icterus is noted. NECK: No JVD is present. CVS: S1, S2 present. RESPIRATORY: Breath sounds are bilaterally diminished and clear to auscultation. ABDOMEN: Obese, soft, nontender. NEURO: He is oriented x3. EXTREMITIES: No edema on bilateral lower extremities. LABORATORY DATA AND TESTS: Labs from today showed CBC with white blood cell 15.4, hemoglobin 11.9, hematocrit 34.6, PLT 391,000, neutrophils 57, bands 16, lymphocytes 10. BMP notable for glucose 219, BUN 13, creatinine 0.77. Medications were reviewed. ASSESSMENT: A 47 year old male with impression: 1) Abscess/cellulitis left upper back area status post I&D. 2) Abscess scalp area status post I&D. 3) Abscess left axilla status post I&D. 4) Diabetes mellitus. 5) Bacteremia. 6) Hypertension. 7) Noncompliance with medication. 8) Obesity. PLAN: Continue current IV antibiotic. Continue wound care per surgeries recommendation. Continue to follow CBC and electrolytes. Continue to monitor Accu-Chek's closely. The plan was discussed with the patient. He seems to be in understanding and agreement. Discussed with patient's nurse.
[2018-03-10] MEDS: Sodium Chloride 0.9% 1000 ML 1,000 ML IV SCH (12:07)
--- NOTE | 2018-03-10 12:37 | PROG NOTE ---
DATE: 03/09/2018 Chart is reviewed and events noted. The patient underwent dressing changes by PT. At the time of this evaluation he is alert, awake, denied any complaints. He appears comfortable. PHYSICAL EXAMINATION: VITAL SIGNS: Blood pressure 162/73, heart rate 75, respiratory rate 20, temperature 98F. HEENT: Normocephalic. No pallor or icterus is noted. NECK: No JVD is present. CVS: S1, S2 present. RESPIRATORY: Breath sounds are bilaterally diminished and clear to auscultation. ABDOMEN: Obese, soft, nontender. NEURO: He is alert, awake, answers simple questions. EXTREMITIES: No edema on bilateral lower extremities. SKIN: Showed presence of dressing on left upper back area, posterior aspect of scalp. LABORATORY DATA AND TESTS: There were no new labs today. Medications were reviewed. ASSESSMENT: A 47 year old male with impression: 1) Abscess/cellulitis left upper back area status post I&D. 2) Abscess of scalp status post I&D. 3) Abscess of left axilla status post I&D. 4) Diabetes mellitus. 5) Hypertension. 6) History of bacteremia. 7) History of noncompliance with medication. PLAN: Continue broad spectrum IV antibiotics. Increase a.m. insulin to 28 units. Increase Zestril. Follow up labs in the a.m. Continue dressing changes per wound care per surgery recommendations. Discharge planning. The plan was discussed with the patient. He seems to be in understanding and agreement. Discussed with patient's nurse, Ran.
[2018-03-10] MEDS ORDERED: Catapres 0.1 MG PO ONE (21:50)
[2018-03-11] MEDS: Zosyn 3.375GM/100 Ml D5W 3.375 GM/100 ML IVPB IV SCH ×5 (05:46→23:45)
[2018-03-11] MEDS: VANCOCIN 1 GM VIAL*** 1 GM in Sodium Chloride 0.9% 250 ML 250 ML IV SCH ×3 (06:14→22:15)
[2018-03-11] MEDS: Zestril 5 MG PO SCH (08:34)
[2018-03-11] MEDS: NovoLOG Insulin SQ PRN ×4 (08:34→22:15)
[2018-03-11] MEDS: Lantus Insulin SQ SCH (08:34)
[2018-03-11] MEDS: ENOXAPARIN SODIUM SQ SCH (08:34)
[2018-03-12] MEDS: Zosyn 3.375GM/100 Ml D5W 3.375 GM/100 ML IVPB IV SCH ×3 (05:31→17:32)
[2018-03-12] MEDS: VANCOCIN 1 GM VIAL*** 1 GM in Sodium Chloride 0.9% 250 ML 250 ML IV SCH ×3 (06:21→21:44)
[2018-03-12] MEDS: Lantus Insulin SQ SCH (07:35)
[2018-03-12] MEDS: ENOXAPARIN SODIUM SQ SCH (09:27)
[2018-03-12] MEDS: Zestril 10 MG PO SCH (09:27)
[2018-03-12] MEDS: Sodium Chloride 0.9% 1000 ML 1,000 ML IV SCH (09:29)
[2018-03-12] MEDS: NovoLOG Insulin SQ PRN ×2 (11:34→22:54)
[2018-03-13] MEDS: Zosyn 3.375GM/100 Ml D5W 3.375 GM/100 ML IVPB IV SCH ×4 (00:26→17:35)
[2018-03-13] MEDS ORDERED: TROUGH DRUG LEVELS IJ ONE (05:30)
[2018-03-13] MEDS: VANCOCIN 1 GM VIAL*** 1 GM in Sodium Chloride 0.9% 250 ML 250 ML IV SCH ×3 (06:37→22:29)
[2018-03-13] MEDS: Lantus Insulin SQ SCH (07:54)
[2018-03-13] MEDS: NovoLOG Insulin SQ PRN ×4 (07:57→22:30)
[2018-03-13] MEDS: ENOXAPARIN SODIUM SQ SCH (10:40)
[2018-03-13] MEDS: Zestril 10 MG PO SCH (10:40)
[2018-03-14] MEDS: Zosyn 3.375GM/100 Ml D5W 3.375 GM/100 ML IVPB IV SCH ×5 (00:04→23:48)
[2018-03-14] MEDS: VANCOCIN 1 GM VIAL*** 1 GM in Sodium Chloride 0.9% 250 ML 250 ML IV SCH ×3 (06:33→21:46)
[2018-03-14] MEDS: Lantus Insulin SQ SCH (08:33)
[2018-03-14] MEDS: NovoLOG Insulin SQ PRN ×3 (08:34→21:47)
[2018-03-14] MEDS: Sodium Chloride 0.9% 1000 ML 1,000 ML IV SCH (10:09)
[2018-03-14] MEDS: Zestril 10 MG PO SCH (10:10)
[2018-03-14] MEDS: ENOXAPARIN SODIUM SQ SCH (10:10)
--- NOTE | 2018-03-14 12:41 | PCM.NOTE ---
Date and Time: 03/14/18 1240 Subjective Assessment: doing ok - Review of Systems Constitutional: No Fever, No Chills Eyes: No Symptoms Ears, Nose, & Throat: No Symptoms Respiratory: No Cough, No Short Of Breath Cardiac: No Chest Pain, No Edema, No Syncope Abdominal/Gastrointestinal: No Abdominal Pain, No Nausea, No Vomiting, No Diarrhea Genitourinary Symptoms: No Dysuria Musculoskeletal: No Back Pain, No Neck Pain Skin: No Rash Neurological: No Dizziness, No Focal Weakness, No Sensory Changes Psychological: No Symptoms Endocrine: No Symptoms Hematologic/Lymphatic: No Symptoms Immunological/Allergic: No Symptoms Objective Exam General Appearance: no apparent distress, alert Neurologic Exam: alert, oriented x 3, cooperative, normal mood/affect, nml cerebellar function, sensation nml, No motor deficits Skin Exam: normal color, warm, dry Eye Exam: PERRL, EOMI, eyes nml inspection Ears, Nose, Throat Exam: normal ENT inspection, pharynx normal, moist mucous membranes Neck Exam: normal inspection, non-tender, supple, full range of motion Respiratory Exam: normal breath sounds, lungs clear, No respiratory distress Cardiovascular Exam: regular rate/rhythm, normal heart sounds Gastrointestinal/Abdomen Exam: soft, No tenderness, No mass Extremity Exam: normal inspection, normal range of motion Back Exam: normal inspection, normal range of motion, No CVA tenderness, No vertebral tenderness Male Genitalia Exam: deferred Rectal Exam: deferred OBJECTIVE DATA Vital Signs: Vital Signs - 24 hr Temp Pulse Resp BP Pulse Ox 03/14/18 07:14 97.8 F 84 20 156/90 97 03/13/18 20:00 98.3 F 83 20 168/86 96 Pain Assessment - Last Documented Pain Intensity 0 Pain Scale Used 0-10 Pain Scale,FLACC Intake and Output: Intake & Output 03/12/18 03/13/18 03/14/18 03/15/18 11:59 11:59 11:59 11:59 Intake Total 5221 9746 6027 Output Total 4556 1391 4200 Balance 1041 403 997 Weight 111.2 kg Lab Results: Accuchecks Date 03/13/18 Time 22:00 Accucheck Value: 253 Accucheck Value: 409 Accucheck Value: 267 Multi-Disciplinary Progress Notes: Multi-Disciplinary Progress Notes 03/13/18 17:56 Physical Therapy Note by Nelly Hamilton WOUND VAC PLACED TODAY ON LEFT UPPER BACK WOUND. WOUND BED NOW CLEAN ENOUGH FOR VAC PLACEMENT TO SPEED HEALING BY SECONDARY INTENTION. WILL MONITOR AND CHANGE ON A USUAL BASIS EVERY 3RD DAY OR INDICATED. PATIENT AND STAFF INSTRUCTED IN REQUIRED ELECTRICAL PLUG IN OF THE UNIT AT NIGHT TO CHARGE BATTERY SO PATIENT CAN MOVE FREELY IN HIS ROOM DURING THE DAY. PICTURE DOCUMENTATION OF WOUND THIS DATE IS ATTACHED. UNIT IS SET ON CONTINUOUS 125 mmHg. Initialized on 03/13/18 17:56 - END OF NOTE Assessment/Plan (1) Abscess of axillary region Current Visit: Yes Status: Acute Code(s): L02.419 - CUTANEOUS ABSCESS OF LIMB, UNSPECIFIED (2) Altered mental status Current Visit: Yes Status: Acute Code(s): R41.82 - ALTERED MENTAL STATUS, UNSPECIFIED
[2018-03-14] MEDS: TYLENOL 325 MG PO PRN (21:54)
[2018-03-15] MEDS: Zosyn 3.375GM/100 Ml D5W 3.375 GM/100 ML IVPB IV SCH ×3 (05:31→17:59)
[2018-03-15] MEDS: VANCOCIN 1 GM VIAL*** 1 GM in Sodium Chloride 0.9% 250 ML 250 ML IV SCH ×3 (06:22→21:07)
[2018-03-15] MEDS: Lantus Insulin SQ SCH (07:55)
[2018-03-15] MEDS: TYLENOL 325 MG PO PRN ×2 (07:55→18:06)
[2018-03-15] MEDS: ENOXAPARIN SODIUM SQ SCH (09:47)
[2018-03-15] MEDS: Zestril 10 MG PO SCH (09:47)
[2018-03-15] MEDS: NovoLOG Insulin SQ PRN ×3 (12:04→21:07)
[2018-03-16] MEDS: Zosyn 3.375GM/100 Ml D5W 3.375 GM/100 ML IVPB IV SCH ×5 (00:03→23:46)
[2018-03-16] MEDS: VANCOCIN 1 GM VIAL*** 1 GM in Sodium Chloride 0.9% 250 ML 250 ML IV SCH ×3 (06:49→21:09)
[2018-03-16] MEDS: Lantus Insulin SQ SCH (07:48)
[2018-03-16] MEDS: NovoLOG Insulin SQ PRN ×4 (07:49→21:10)
[2018-03-16] MEDS: ENOXAPARIN SODIUM SQ SCH (09:26)
[2018-03-16] MEDS: Zestril 10 MG PO SCH (09:26)
[2018-03-17] MEDS: Zosyn 3.375GM/100 Ml D5W 3.375 GM/100 ML IVPB IV SCH ×3 (05:57→18:05)
[2018-03-17] MEDS: VANCOCIN 1 GM VIAL*** 1 GM in Sodium Chloride 0.9% 250 ML 250 ML IV SCH ×3 (06:46→21:16)
[2018-03-17] MEDS: Lantus Insulin SQ SCH (08:54)
[2018-03-17 09:32] LABS: INR 1.06 (0.8-3.0)
[2018-03-17 09:35] LABS: PTT 30.7 SECONDS (24.1-36.1)
[2018-03-17] MEDS: ENOXAPARIN SODIUM SQ SCH (10:24)
[2018-03-17] MEDS: Zestril 10 MG PO SCH (10:26)
--- NOTE | 2018-03-17 13:12 | PCM.NOTE ---
Date and Time: 03/17/18 1311 Subjective Assessment: another abscess on right arm - Review of Systems Constitutional: No Fever, No Chills Eyes: No Symptoms Ears, Nose, & Throat: No Symptoms Respiratory: No Cough, No Short Of Breath Cardiac: No Chest Pain, No Edema, No Syncope Abdominal/Gastrointestinal: No Abdominal Pain, No Nausea, No Vomiting, No Diarrhea Genitourinary Symptoms: No Dysuria Musculoskeletal: No Back Pain, No Neck Pain Skin: No Rash Neurological: No Dizziness, No Focal Weakness, No Sensory Changes Psychological: No Symptoms Endocrine: No Symptoms Hematologic/Lymphatic: No Symptoms Immunological/Allergic: No Symptoms Objective Exam General Appearance: no apparent distress, alert Neurologic Exam: alert, oriented x 3, cooperative, normal mood/affect, nml cerebellar function, sensation nml, No motor deficits Skin Exam: normal color, warm, dry Eye Exam: PERRL, EOMI, eyes nml inspection Ears, Nose, Throat Exam: normal ENT inspection, pharynx normal, moist mucous membranes Neck Exam: normal inspection, non-tender, supple, full range of motion Respiratory Exam: normal breath sounds, lungs clear, No respiratory distress Cardiovascular Exam: regular rate/rhythm, normal heart sounds Gastrointestinal/Abdomen Exam: soft, No tenderness, No mass Extremity Exam: normal inspection, normal range of motion Back Exam: normal inspection, normal range of motion, No CVA tenderness, No vertebral tenderness Male Genitalia Exam: deferred Rectal Exam: deferred OBJECTIVE DATA Vital Signs: Vital Signs - 24 hr Temp Pulse Resp BP Pulse Ox 03/16/18 19:40 97.9 F 84 19 171/95 95 Pain Assessment - Last Documented Pain Intensity 5 Pain Scale Used Bustamante-Aguilar Faces Intake and Output: Intake & Output 03/15/18 03/16/18 03/17/18 03/18/18 11:59 11:59 11:59 11:59 Intake Total 1836 9075 1527 Output Total 9299 6700 9719 Balance -2551 -6860 -1863 Weight 108.8 kg Lab Results: Accuchecks Date 03/17/18 Date 03/17/18 Date 03/16/18 Date 03/16/18 Time 11:30 Time 07:30 Time 16:30 Accucheck Value: 253 Accucheck Value: 296 Accucheck Value: 293 Lab Results-Last 24 Hours 03/17/18 Range/Units 08:47 PT 12.3 (8.83-12.87) SECONDS INR 1.06 (0.8-3.0) APTT 30.7 (24.1-36.1) SECONDS Multi-Disciplinary Progress Notes: Multi-Disciplinary Progress Notes 03/17/18 09:58 Nutrition Note by Renay Bedoya F/u Note: Pt NPO for procedure. had been receiving an 1800 ADA diet with [id number] - 100% po intake. no recent labs. glu 253, neg fluid balance 900 mls. Weight 111.2 kg on adm current weight 108.8 kg. goal #1 not met; #2 met and ongoing. Recommend to resume po intake within 3 days. Will con't to monitor and f/u prn. T.BRENDAN Bedoya Initialized on 03/17/18 09:58 - END OF NOTE Assessment/Plan (1) Abscess of axillary region Current Visit: Yes Status: Acute Code(s): L02.419 - CUTANEOUS ABSCESS OF LIMB, UNSPECIFIED (2) Altered mental status Current Visit: Yes Status: Acute Code(s): R41.82 - ALTERED MENTAL STATUS, UNSPECIFIED
[2018-03-17] MEDS: Sodium Chloride 0.9% 1000 ML 1,000 ML IV SCH (16:19)
[2018-03-17] MEDS: NovoLOG Insulin SQ PRN ×2 (16:44→21:16)
[2018-03-18] MEDS: Zosyn 3.375GM/100 Ml D5W 3.375 GM/100 ML IVPB IV SCH ×4 (01:04→19:03)
[2018-03-18] MEDS: VANCOCIN 1 GM VIAL*** 1 GM in Sodium Chloride 0.9% 250 ML 250 ML IV SCH ×3 (05:11→21:55)
[2018-03-18] MEDS: Lantus Insulin SQ SCH ×2 (08:23→09:06)
[2018-03-18] MEDS: Zestril 10 MG PO SCH (09:06)
--- NOTE | 2018-03-18 09:37 | CONS ---
CONSULT DATE: 03/18/2018 HISTORY: This patient is seen for Dr. Ferris who was consulted yesterday on 03/17/2018. Today is 03/18/2018. The patient is a 47 year-old noncompliant diabetic had some necrotizing infection abscess in mid back and left axilla. 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 He has been in swing-bed. He had a different area on his right arm yesterday. Dr. Ferris was consulted yesterday and he asked that I see the patient when I was here doing cases today. PAST MEDICAL HISTORY: As mentioned above. PAST SURGICAL HISTORY: As mentioned above. HOME MEDICATIONS: ALLERGIES: NKDA. FAMILY HISTORY: Negative in regards to this specific problem. SOCIAL HISTORY: No alcohol abuse. REVIEW OF SYSTEMS: Twelve systems reviewed pertinent for as noted above. His other wounds are doing much better. He is afebrile, vital signs stable. They have been working on keeping his blood sugars under better control. He has been on IV Vancomycin. No chest pain or palpitations. LAB DATA AND TESTS: Recent white count on the chart. PHYSICAL EXAMINATION: GENERAL: A chronically ill gentleman in no acute distress. HEENT: Sclera nonicteric. NECK: Posterior neck wound is much improved from initial infection. BACK: Large left back wound has got packing in place now. The axilla is improved, dressing had fallen off. EXTREMITIES: On his right arm he had a little reddened streaks. It looks like he has some thrombophlebitis. He definitely had an IV in this wound and looks like the IV infiltrated. He has got some thrombophlebitis. There is no fluctuance to drain now, a little bit of redness but it has improved over the past couple of days according to the patient. No need for any drain at this time. CHEST: Equal excursion, nonlabored breathing. CVS: Regular rhythm and pulse. ABDOMEN: Soft. IMPRESSION: Extensive soft tissue infections poorly compliant, obese, diabetic individual. His prior wounds improved, this new area is what is reconsulted for. Appears to be just some thrombophlebitis from IV infiltration in the area. No need for any emergent surgery at this time as it has improved, continue IV antibiotics.
[2018-03-18] MEDS ORDERED: NO ANTICOAGULANTS OR BLOOD THINNERS/ASPIRIN MC SCH (10:00)
--- NOTE | 2018-03-18 11:51 | PCM.NOTE ---
Date and Time: 03/18/18 1150 Subjective Assessment: doing ok - Review of Systems Constitutional: No Fever, No Chills Eyes: No Symptoms Ears, Nose, & Throat: No Symptoms Respiratory: No Cough, No Short Of Breath Cardiac: No Chest Pain, No Edema, No Syncope Abdominal/Gastrointestinal: No Abdominal Pain, No Nausea, No Vomiting, No Diarrhea Genitourinary Symptoms: No Dysuria Musculoskeletal: No Back Pain, No Neck Pain Skin: No Rash Neurological: No Dizziness, No Focal Weakness, No Sensory Changes Psychological: No Symptoms Endocrine: No Symptoms Hematologic/Lymphatic: No Symptoms Immunological/Allergic: No Symptoms Objective Exam General Appearance: no apparent distress, alert Neurologic Exam: alert, oriented x 3, cooperative, normal mood/affect, nml cerebellar function, sensation nml, No motor deficits Skin Exam: normal color, warm, dry Eye Exam: PERRL, EOMI, eyes nml inspection Ears, Nose, Throat Exam: normal ENT inspection, pharynx normal, moist mucous membranes Neck Exam: normal inspection, non-tender, supple, full range of motion Respiratory Exam: normal breath sounds, lungs clear, No respiratory distress Cardiovascular Exam: regular rate/rhythm, normal heart sounds Gastrointestinal/Abdomen Exam: soft, No tenderness, No mass Extremity Exam: normal inspection, normal range of motion Back Exam: normal inspection, normal range of motion, No CVA tenderness, No vertebral tenderness Male Genitalia Exam: deferred Rectal Exam: deferred OBJECTIVE DATA Vital Signs: Vital Signs - 24 hr Temp Pulse Resp BP Pulse Ox 03/18/18 08:22 98.1 F 77 18 141/92 93 L 03/17/18 20:00 98.3 F 85 18 140/75 95 Pain Assessment - Last Documented Pain Intensity 5 Pain Scale Used 0-10 Pain Scale Intake and Output: Intake & Output 03/15/18 03/16/18 03/17/18 03/18/18 11:59 11:59 11:59 11:59 Intake Total 1836 2645 1527 120 Output Total 3900 0865 4880 600 Balance -1139 -1480 -1973 -480 Weight 108.8 kg Lab Results: Accuchecks Date 03/17/18 Date 03/17/18 Time 16:30 Accucheck Value: 215 Accucheck Value: 303 Accucheck Value: 378 Assessment/Plan (1) Abscess of axillary region Current Visit: Yes Status: Acute Code(s): L02.419 - CUTANEOUS ABSCESS OF LIMB, UNSPECIFIED (2) Altered mental status Current Visit: Yes Status: Acute Code(s): R41.82 - ALTERED MENTAL STATUS, UNSPECIFIED
[2018-03-18] MEDS: NovoLOG Insulin SQ PRN ×3 (12:59→21:55)
[2018-03-19] MEDS: Zosyn 3.375GM/100 Ml D5W 3.375 GM/100 ML IVPB IV SCH ×4 (00:01→17:15)
[2018-03-19] MEDS: VANCOCIN 1 GM VIAL*** 1 GM in Sodium Chloride 0.9% 250 ML 250 ML IV SCH ×3 (06:43→22:34)
[2018-03-19] MEDS: NovoLOG Insulin SQ PRN ×3 (08:12→22:35)
[2018-03-19] MEDS: Lantus Insulin SQ SCH (08:12)
[2018-03-19] MEDS: Zestril 10 MG PO SCH (10:55)
--- NOTE | 2018-03-19 11:25 | PCM.NOTE ---
Date and Time: 03/19/18 1125 Subjective Assessment: doing ok - Review of Systems Constitutional: No Fever, No Chills Eyes: No Symptoms Ears, Nose, & Throat: No Symptoms Respiratory: No Cough, No Short Of Breath Cardiac: No Chest Pain, No Edema, No Syncope Abdominal/Gastrointestinal: No Abdominal Pain, No Nausea, No Vomiting, No Diarrhea Genitourinary Symptoms: No Dysuria Musculoskeletal: No Back Pain, No Neck Pain Skin: No Rash Neurological: No Dizziness, No Focal Weakness, No Sensory Changes Psychological: No Symptoms Endocrine: No Symptoms Hematologic/Lymphatic: No Symptoms Immunological/Allergic: No Symptoms Objective Exam General Appearance: no apparent distress, alert Neurologic Exam: alert, oriented x 3, cooperative, normal mood/affect, nml cerebellar function, sensation nml, No motor deficits Skin Exam: normal color, warm, dry Eye Exam: PERRL, EOMI, eyes nml inspection Ears, Nose, Throat Exam: normal ENT inspection, pharynx normal, moist mucous membranes Neck Exam: normal inspection, non-tender, supple, full range of motion Respiratory Exam: normal breath sounds, lungs clear, No respiratory distress Cardiovascular Exam: regular rate/rhythm, normal heart sounds Gastrointestinal/Abdomen Exam: soft, No tenderness, No mass Extremity Exam: normal inspection, normal range of motion Back Exam: normal inspection, normal range of motion, No CVA tenderness, No vertebral tenderness Male Genitalia Exam: deferred Rectal Exam: deferred OBJECTIVE DATA Vital Signs: Vital Signs - 24 hr Temp Pulse Resp BP Pulse Ox 03/19/18 07:10 98.5 F 86 16 145/72 88 L 03/18/18 22:19 97.9 F 90 18 145/81 94 L Pain Assessment - Last Documented Pain Intensity 5 Pain Scale Used 0-10 Pain Scale Intake and Output: Intake & Output 03/16/18 03/17/18 03/18/18 03/19/18 11:59 11:59 11:59 11:59 Intake Total 2645 1527 120 240 Output Total 4125 3500 600 0 Balance -1480 -1973 -480 240 Lab Results: Accuchecks Date 03/19/18 Date 03/18/18 Time 07:30 Accucheck Value: 286 Accucheck Value: 422 Accucheck Value: 296 Accucheck Value: 338 Assessment/Plan (1) Abscess of axillary region Current Visit: Yes Status: Acute Code(s): L02.419 - CUTANEOUS ABSCESS OF LIMB, UNSPECIFIED (2) Altered mental status Current Visit: Yes Status: Acute Code(s): R41.82 - ALTERED MENTAL STATUS, UNSPECIFIED
[2018-03-19] MEDS: Sodium Chloride 0.9% 1000 ML 1,000 ML IV SCH (16:14)
[2018-03-20] MEDS: Zosyn 3.375GM/100 Ml D5W 3.375 GM/100 ML IVPB IV SCH ×4 (00:34→17:40)
[2018-03-20] MEDS ORDERED: TROUGH DRUG LEVELS IJ ONE (05:30)
[2018-03-20 06:05] LABS: ANION GAP 14.7 MEQ/L (5-15); BLOOD UREA NITROGEN 17 mg/dL (9-20); CHLORIDE 100 mmol/L (98-107); Calcium 9.5 mg/dL (8.4-10.2); Carbon Dioxide 26 mmol/L (22-30); Creatinine 1 0.94 mg/dL (0.66-1.25); Glucose 235 mg/dL (74-106); Potassium 3.9 mmol/L (3.5-5.1); SODIUM 137 mmol/L (137-145)
[2018-03-20] MEDS: VANCOCIN 1 GM VIAL*** 1 GM in Sodium Chloride 0.9% 250 ML 250 ML IV SCH ×3 (06:11→22:56)
[2018-03-20 07:19] VITALS: O2SAT 94
[2018-03-20] MEDS: Lantus Insulin SQ SCH (07:49)
[2018-03-20] MEDS: NovoLOG Insulin SQ PRN ×4 (07:49→22:55)
[2018-03-20] MEDS: Zestril 10 MG PO SCH (09:30)
[2018-03-20] MEDS: ENOXAPARIN SODIUM SQ SCH (16:30)
--- NOTE | 2018-03-20 21:30 | PCM.NOTE ---
Date and Time: 03/20/182128 Subjective Assessment: doing better - Review of Systems Constitutional: No Fever, No Chills Eyes: No Symptoms Ears, Nose, & Throat: No Symptoms Respiratory: No Cough, No Short Of Breath Cardiac: No Chest Pain, No Edema, No Syncope Abdominal/Gastrointestinal: No Abdominal Pain, No Nausea, No Vomiting, No Diarrhea Genitourinary Symptoms: No Dysuria Musculoskeletal: No Back Pain, No Neck Pain Skin: No Rash Neurological: No Dizziness, No Focal Weakness, No Sensory Changes Psychological: No Symptoms Endocrine: No Symptoms Hematologic/Lymphatic: No Symptoms Immunological/Allergic: No Symptoms Objective Exam General Appearance: no apparent distress, alert Neurologic Exam: alert, oriented x 3, cooperative, normal mood/affect, nml cerebellar function, sensation nml, No motor deficits Skin Exam: normal color, warm, dry Eye Exam: PERRL, EOMI, eyes nml inspection Ears, Nose, Throat Exam: normal ENT inspection, pharynx normal, moist mucous membranes Neck Exam: normal inspection, non-tender, supple, full range of motion Respiratory Exam: normal breath sounds, lungs clear, No respiratory distress Cardiovascular Exam: regular rate/rhythm, normal heart sounds Gastrointestinal/Abdomen Exam: soft, No tenderness, No mass Extremity Exam: normal inspection, normal range of motion Back Exam: normal inspection, normal range of motion, No CVA tenderness, No vertebral tenderness Male Genitalia Exam: deferred Rectal Exam: deferred OBJECTIVE DATA Vital Signs: Vital Signs - 24 hr Temp Pulse Resp BP Pulse Ox 03/20/18 07:18 98.3 F 86 18 135/95 94 L 03/19/18 21:53 98.2 F 86 18 174/91 95 Pain Assessment - Last Documented Pain Intensity 5 Pain Scale Used 0-10 Pain Scale Intake and Output: Intake & Output 03/18/18 03/19/18 03/20/18 03/21/18 11:59 11:59 11:59 11:59 Intake Total 120 240 840 480 Output Total 600 0 Balance -480 240 840 480 Lab Results: Accuchecks Date 03/20/18 Date 03/20/18 Date 03/20/18 Date 03/19/18 Time 22:00 Accucheck Value: 212 Accucheck Value: 228 Accucheck Value: 253 Accucheck Value: 344 Lab Results-Last 24 Hours 03/20/18 03/20/18 Range/Units 05:25 05:25 Sodium 137 (137-145) mmol/L Potassium 3.9 (3.5-5.1) mmol/L Chloride 100 (98-107) mmol/L Carbon Dioxide 26 (22-30) mmol/L Anion Gap 14.7 (5-15) MEQ/L BUN 17 (9-20) mg/dL Creatinine 0.94 (0.66-1.25) mg/dL Estimated GFR > 60.0 ML/MIN Glucose 235 H (74-106) mg/dL Calcium 9.5 (8.4-10.2) mg/dL Vancomycin Trough 16.36 (10-20) ug/mL Multi-Disciplinary Progress Notes: Multi-Disciplinary Progress Notes 03/20/18 14:45 Nutrition Note by Renay Bedoya F/u note: Note 1800 ADA diet con't with 100% po intake. Note prostat not con't when diet resumed from NPO. adm weight 111.2 kg; current weight 108.8 kg. Labs 03/20= glu 235, alb 3.3, hgb 11.5, hct 34.1. Goals #1 and #3 not met. Recommend to con't with current diet order and d/c goal #3. Pt to be d/c'd tomorrow. Will f/u prn. TBRENDAN Gabriel Initialized on 03/20/18 14:45 - END OF NOTE Assessment/Plan (1) Abscess of axillary region Current Visit: Yes Status: Acute Code(s): L02.419 - CUTANEOUS ABSCESS OF LIMB, UNSPECIFIED (2) Altered mental status Current Visit: Yes Status: Acute Code(s): R41.82 - ALTERED MENTAL STATUS, UNSPECIFIED
[2018-03-21] MEDS: Zosyn 3.375GM/100 Ml D5W 3.375 GM/100 ML IVPB IV SCH ×4 (01:17→14:18)
[2018-03-21] MEDS: VANCOCIN 1 GM VIAL*** 1 GM in Sodium Chloride 0.9% 250 ML 250 ML IV SCH ×2 (06:05→14:45)
[2018-03-21] MEDS: Lantus Insulin SQ SCH (07:32)
[2018-03-21] MEDS: NovoLOG Insulin SQ PRN ×2 (07:33→16:10)
[2018-03-21 07:34] VITALS: BP 130/76; PULSE 80
[2018-03-21] MEDS: ENOXAPARIN SODIUM SQ SCH (09:04)
[2018-03-21] MEDS: Zestril 10 MG PO SCH (09:08)
[2018-03-22] MEDS ORDERED: Lantus Insulin SQ SCH (08:00)
--- NOTE | 2018-03-25 13:35 | DS ---
DISCHARGE DIAGNOSES: 1) ABSCESS/CELLULITIS LEFT UPPER BACK STATUS POST INCISION AND DRAINAGE. 2) ABSCESS OF SCALP STATUS POST INCISION AND DRAINAGE. 3) ABSCESS LEFT AXILLA STATUS POST INCISION AND DRAINAGE. 4) DIABETES MELLITUS SUBOPTIMALLY CONTROLLED. 5) BACTEREMIA. 6) HISTORY OF NONCOMPLIANCE WITH MEDICATIONS. 7) LETHARGY, RESOLVED. HOSPITAL COURSE: Aston Vlila is a 47 year-old male with past medical history of diabetes mellitus and obesity. He reportedly had stopped taking all of his medications some time back. He was treated for abscess and followed up with Dr. Alicia for the same. Eventually the patient was seen while I was covering for Dr. Alicia on 03/03/2018 in the office. The patient had reported a large, draining, painful area on the left upper back and abscess of back of his head. As per patient and his , the symptoms started two to three days ago. There was no reported history of injury. The patient was noted to be lethargic. The patient was admitted for work up and management from office on 03/03/2018. White blood cell count 22,000. Sodium 125. A1C of 12.60. Also he was noted to be afebrile. Lactic acid was within normal limits. He was placed on broad spectrum IV antibiotics. Surgical consult was requested and the patient underwent I&D of left upper back and scalp area. Also reportedly the patient was noted to have prior packing in left axilla and underwent I&D of this area as well. Post-procedure he was continued on IV antibiotics and analgesics. Also he was started on Lantus and sliding scale insulin. Please refer to acute care discharge summary for details. Eventually he improved clinically, remained hemodynamically stable and was discharged. However it was discussed with patient that given his need for extensive wound care as well as IV antibiotics he would benefit from swing-bed stay. The patient and were agreeable with that. The patient was discharged to swing-bed on 03/05/2018. Since admission to swing-bed he was continued on broad spectrum IV antibiotics. Cultures from his neck, left upper back as well as axillary wounds were identified to grow methicillin resistant staphylococcus aureus and antibiotics were adjusted accordingly. He was continued on Vancomycin. Wound care was carried out by PT strictly as per surgical recommendations. One set of blood cultures was negative. However culture did show gram positive cocci, few gram negative rods and was sent to reference lab. During his further course the patient had improved clinically, remained afebrile. Subsequent labs showed mildly elevated but stable white blood cell count, stable hemoglobin and hematocrit. Accu-Chek's were elevated for which he was treated accordingly. The rest of his course was essentially more or less unremarkable. He improved clinically, remained hemodynamically stable. The patient has completed 14 days of IV antibiotic treatment. Surgery has cleared the patient to be discharged home. PHYSICAL EXAMINATION: At the time of this evaluation the patient is alert, awake, comfortable, states he is feeling well, denied any complaints. He is wishing to go home, appears comfortable. VITAL SIGNS: Blood pressure 130/70, heart rate 80, respiratory rate 18, temperature 98.4F. Oxygen saturation 94%. HEENT: Normocephalic. Pallor is present. No icterus is noted. NECK: No JVD is present. CVS: S1, S2 present. RESPIRATORY: Breath sounds are bilaterally diminished. BACK: Dressing present on left upper back. ABDOMEN: Obese, soft, nontender. NEURO: He is alert, oriented x3. EXTREMITIES: No edema on bilateral lower extremities. LABORATORY DATA AND TESTS: There were no new labs today. Medications were reviewed. ASSESSMENT: As outlined in discharge diagnosis. PLAN: A patient with history of diabetes mellitus and noncompliance with medications was admitted with abscess, cellulitis left upper back, scalp area. He was also noted to have abscess in left axilla. He underwent work up and treatment as noted. Post-procedure he has continued on extensive wound care as per surgery recommendations and this was done by PT. Also he had broad spectrum IV antibiotics for nearly two weeks. He has improved clinically. He remains hemodynamically stable, afebrile. He otherwise is feeling well and is wishing to go home. After discussion with surgical asst on the case the patient is being discharged. The patient will continue to need wound care and an appointments for the same has been arranged at PT. It was stressed with the patient to follow up for those appointments as scheduled. I have advised the patient to continue all wound care, dressing instructions as per surgery recommendations. I advised to take discharge medications as directed. I have advised him to follow up with Dr. Alicia in the office as scheduled. Compliance with diet and medications were stressed. Again it was stressed that the patient must follow up for scheduled appointment as needed including surgery appointment. I discussed with patient and his that failure to complete his treatment as directed would likely result in additional complications including but not limited to increased worsening infection, abscess and . The patient and verbalized understanding. I have advised that the patient return to the emergency room [facility] if any new signs and symptoms or reappearance of previous signs and symptoms are noted. The patient's clinical condition, work-up results and plan of management including plan after discharge were discussed at length with patient and his . They seem to be in understanding and agreement. Please refer to the patient's chart, labs, diagnostic work up results and consult notes for details. Please refer to discharge medication list from 03/21/2018. The plan was discussed with the patient nurse, Sana.
== END 2018-03-21 16:45 | disposition home or self-care (01) | DRG 603 ==
LOC: MED SURG 15:30
PROVIDERS: ADMIT General Practice; ATTEND General Practice
DX: L03.312 Cellulitis of back [any part except buttock and flank] (principal); L02.811 Cutaneous abscess of head [any part, except face]; L02.412 Cutaneous abscess of left axilla; R78.81 Bacteremia; B95.62 Methicillin resistant Staphylococcus aureus infection as the cause of diseases classified elsewhere; L02.219 Cutaneous abscess of trunk, unspecified; E11.9 Type 2 diabetes mellitus without complications; Z91.14 Patient's other noncompliance with medication regimen; R53.83 Other fatigue; Z98.890 Other specified postprocedural states; E66.9 Obesity, unspecified; I10 Essential (primary) hypertension; R41.82 Altered mental status, unspecified
CPT/HCPCS: 36415; 80048; 80053; 80202; 82962; 85025; 85610; 85730; J1650; J2543; J3370; A9270-GY

== ENCOUNTER 2018-03-28 14:14 | Emergency (ER) | payer MEDICARE ==
--- NOTE | 2018-03-28 14:57 | ERPHSYRPT ---
- History of Present Illness Time Seen by Provider: 03/28/18 15:13 Historian: patient, family Exam Limitations: no limitations Patient Subjective Stated Complaint: pt recently hospitalized for diabetic ulcers to the neck and the back and left under arm for approx 3 weeks at this facility. pt was discharged one week ago today. spouse states they were unable to afford his Rx insulin at $1,500. pt reports diarrhea and abdominal pain since 2100 03/27/18. pt reports pressure to the rectum. spouse states their bed last night was covered in liquid stool, states it has been continuously seeping from the rectum, pt is unable to control his bowels. Triage Nursing Assessment: pt is aox3, pupils perrl, pt afebrile, resps easy and non labored, radial pulses strong and equal, abd is distended, bowel sounds are present x4 and hyperactive. no edema noted. pt skin warm dry. healing wounds noted to the back of the neck, left scapula region and the left underarm. wounds have recently had surgical intervention and are being treated by Nelly Hamilton PT at [facility]. Physician History: The patient is a 47-year-old male who complains of after eating a [employer] sandwich yesterday evening, he has been having liquid diarrhea. He's had some cramping in his abdomen. He denies nausea or vomiting. He denies fever. He was admitted to this hospital on March 03, 2018 for MRSA infection. He was transitioned to a swing bed on March 06, 2018 and was discharged March 21, 2018. During his stay he has been on several different IV antibiotics. Since discharge, he has not been having diarrhea or any problems. He has a visiting nurse change his dressing over the wounds on his back. He also complains that he hasn't been able to afford insulin for the past week. His past medical history is significant for recent MRSA infection, diabetes, and hypertension. Timing/Duration: yesterday, constant, sudden Activities at Onset: none Quality: cramping Abdominal Pain Onset Location: LLQ Pain Radiation: no radiation Severity of Pain-Max: mild Severity of Pain-Current: mild Modifying Factors: Improves With: nothing Associated Symptoms: diarrhea Previous symptoms: no prior history Allergies/Adverse Reactions: No Known Drug Allergies Allergy (Verified 03/28/18 14:41) Home Medications: Levofloxacin [Levaquin] 500 mg PO 03/28/18 [History] Hx Tetanus, Diphtheria Vaccination/Date Given: Yes Hx Influenza Vaccination/Date Given: No Hx Pneumococcal Vaccination/Date Given: No Immunizations Up to Date: Yes - Review of Systems Constitutional: No Fever, No Chills Eyes: No Symptoms Ears, Nose, & Throat: No Symptoms Respiratory: No Cough, No Dyspnea Cardiac: No Chest Pain, No Edema, No Syncope Abdominal/Gastrointestinal: Diarrhea Genitourinary Symptoms: No Dysuria Musculoskeletal: No Back Pain, No Neck Pain Skin: No Rash Neurological: No Dizziness, No Focal Weakness, No Sensory Changes Psychological: No Symptoms Endocrine: No Symptoms Hematologic/Lymphatic: No Symptoms Immunological/Allergic: No Symptoms All Other Systems: Reviewed and Negative - Past Medical History Pertinent Past Medical History: Yes Neurological History: No Pertinent History ENT History: Other Cardiac History: No Pertinent History, Hypertension Respiratory History: No Pertinent History Endocrine Medical History: Diabetes Type II Musculoskeletal History: No Pertinent History GI Medical History: No Pertinent History History: No Pertinent History Psycho-Social History: No Pertinent History Male Reproductive Disorders: No Pertinent History Other Medical History: 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, 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 - Past Surgical History Past Surgical History: Yes Cardiac: No Pertinent History Respiratory: No Pertinent History Gastrointestinal: Appendectomy Musculoskeletal: Orthopedic Surgery Other Surgical History: right knee surgery, abscess - Social History Smoking Status: Never smoker Exposure to second hand smoke: No Drug Use: none Patient Lives Alone: No - Nursing Vital Signs Nursing Vital Signs: Initial Vital Signs Pulse Rate 108 H 03/28/18 14:20 Respiratory Rate 20 03/28/18 14:20 Blood Pressure 141/86 03/28/18 14:20 O2 Sat by Pulse Oximetry 98 03/28/18 14:20 Pain Scale Pain Intensity 4 - Physical Exam General Appearance: no apparent distress, alert Eye Exam: PERRL/EOMI, eyes nml inspection Ears, Nose, Throat Exam: normal ENT inspection, pharynx normal, moist mucous membranes Neck Exam: normal inspection, non-tender, supple, full range of motion Respiratory Exam: normal breath sounds, lungs clear, No respiratory distress Cardiovascular Exam: normal heart sounds, tachycardia Gastrointestinal/Abdomen Exam: soft, No tenderness, No mass Rectal Exam: not done Back Exam: normal inspection, normal range of motion, No CVA tenderness, No vertebral tenderness Extremity Exam: normal inspection, normal range of motion, pelvis stable Neurologic Exam: alert, oriented x 3, cooperative, normal mood/affect, nml cerebellar function, sensation nml, No motor deficits Skin Exam: other (healing skin abscesses with I and D to upper back) SpO2 Interpretation: normal SpO2: 98 Oxygen Delivery: Room Air - Radiology Exams Abdomen X-ray Interpretation: Interpreted by me, Other (dialated air-filled loops of colon.) - CT Exams Abdomen/Pelvis CT Interpretation: Tele-radiologist Report (per Dr Gonzales), Other (sigmoid and rectal wall thickening with stranding favoring colitis and proctitis) Ordered Tests: Active Orders 24 hr Category Date Time Status ACCUCHECK [Accucheck] STAT Care 03/28/18 17:55 Active IV Insertion STAT Care 03/28/18 15:19 Active ABDOMEN AND PELVIS W/0 CONTRAS [CT] Stat Exams 03/28/18 15:58 Taken OBSTR/ACUTE ABDOMEN SERIES Stat Exams 03/28/18 15:20 Taken BMP Stat Lab 03/28/18 15:30 Completed CBC W DIFF Stat Lab 03/28/18 15:30 Completed LIPASE Stat Lab 03/28/18 15:30 Completed Lactic Acid Stat Lab 03/28/18 18:30 Completed Manual Differential NC Stat Lab 03/28/18 15:30 Completed Medication Summary Generic Name Dose Route Start Last Admin Trade Name Freq PRN Reason Stop Dose Admin Sodium Chloride 1,000 mls @ 999 mls/hr 03/28/18 18:19 03/28/18 18:23 Sodium Chloride 0.9% 1000 Ml IV 03/28/18 19:19 999 mls/hr .Q1H1M STA Administration Discontinued Medications Generic Name Dose Route Start Last Admin Trade Name Freq PRN Reason Stop Dose Admin Diphenoxylate HCl/Atropine 1 tablet 03/28/18 15:19 03/28/18 15:28 Lomotil PO 03/28/18 15:20 1 tablet STAT ONE Administration Diphenoxylate HCl/Atropine Confirm 03/28/18 15:27 Lomotil Administered 03/28/18 15:28 Dose 1 tablet .ROUTE .STK-MED ONE Sodium Chloride 1,000 mls @ 999 mls/hr 03/28/18 15:19 03/28/18 15:28 Sodium Chloride 0.9% 1000 Ml IV 03/28/18 16:19 999 mls/hr .Q1H1M STA Administration Sodium Chloride Confirm 03/28/18 15:27 Sodium Chloride 0.9% 1000 Ml Administered 03/28/18 15:28 Dose 1,000 mls @ ud .ROUTE .STK-MED ONE Sodium Chloride Confirm 03/28/18 18:22 Sodium Chloride 0.9% 1000 Ml Administered 03/28/18 18:23 Dose 1,000 mls @ ud .ROUTE .STK-MED ONE Lab/Rad Data: Laboratory Result Diagrams 03/28/18 15:30 03/28/18 15:30 Laboratory Results 03/28/18 03/28/18 03/28/18 Range/Units 18:30 15:30 15:30 WBC 21.7 H (4.0-10.5) K/mm3 RBC 4.67 (4.1-5.6) M/mm3 Hgb 13.4 (12.5-18.0) gm/dl Hct 38.8 L (42-50) % MCV 83.1 (78-100) fl MCH 28.7 (26-32) pg MCHC 34.5 (32-36) g/dl RDW 13.8 (11.5-14.0) % Plt Count 272 (150-450) K/mm3 MPV 10.5 H (6-9.5) fl Absolute Granulocytes 17.6 H (1.4-6.9) Segmented Neutrophils 72 H (36.-66.) % Band Neutrophils 9 H (0.0-2.0) % Lymphocytes (Manual) 6 L (24-44) % Monocytes (Manual) 11 (0.0-12.0) % Eosinophils (Manual) 1 (0.00-3.0) % Basophils (Manual) 1 (0.0-1.0) % Platelet Estimate NORMAL (NORMAL) RBC Morphology NORMAL Sodium 129 L (137-145) mmol/L Potassium 4.6 (3.5-5.1) mmol/L Chloride 91 L (98-107) mmol/L Carbon Dioxide 20 L (22-30) mmol/L Anion Gap 22.1 H (5-15) MEQ/L BUN 30 H (9-20) mg/dL Creatinine 1.09 (0.66-1.25) mg/dL Estimated GFR > 60.0 ML/MIN Glucose 447 H (74-106) mg/dL Lactic Acid 1.1 (0.4-2.0) Calcium 9.3 (8.4-10.2) mg/dL Lipase 15 L (23-300) U/L - Progress Progress: improved Progress Note: 03/28/18 18:10 After 1 L NS, BG is 358. Discussed with : Maral (wants pt transferred to [facility]), Other ( discussed pt with Dr Mares at [place]) Counseled pt/family regarding: lab results, diagnosis, rad results - Departure Time of Disposition: 19:20 Departure Disposition: Transfer (Transfer to [facility] per Dr Mares) Clinical Impression: Colitis Condition: Stable Critical Care Time: No Referrals: RIAN JOHN MD [Primary Care Provider] -
[2018-03-28] MEDS ORDERED: Lomotil PO ONE (15:19)
[2018-03-28] MEDS ORDERED: Sodium Chloride 0.9% 1000 ML 1,000 ML IV STA ×2 (15:19→18:19)
[2018-03-28] MEDS ORDERED: Sodium Chloride 0.9% 1000 ML 1,000 ML ONE ×2 (15:27→18:22)
[2018-03-28] MEDS ORDERED: Lomotil ONE (15:27)
[2018-03-28 15:34] LABS: Hematocrit 38.8 % (42-50); Hemoglobin 13.4 gm/dl (12.5-18.0); Mean Cell Volume 83.1 fl (78-100); Mean Corpuscular Hemoglobin 28.7 pg (26-32); Mean Corpuscular Hgb Concent. 34.5 g/dl (32-36); Mean Platelet Volume 10.5 fl (6-9.5); Platelet Count 272 K/mm3 (150-450); Red Blood Count 4.67 M/mm3 (4.1-5.6); Red Cell Distribution Width 13.8 % (11.5-14.0); White Blood Count 21.7 K/mm3 (4.0-10.5)
[2018-03-28 16:14] LABS: ANION GAP 22.1 MEQ/L (5-15); BLOOD UREA NITROGEN 30 mg/dL (9-20); CHLORIDE 91 mmol/L (98-107); Calcium 9.3 mg/dL (8.4-10.2); Carbon Dioxide 20 mmol/L (22-30); Creatinine 1 1.09 mg/dL (0.66-1.25); Glucose 447 mg/dL (74-106); LIPASE 15 U/L (23-300); Potassium 4.6 mmol/L (3.5-5.1); SODIUM 129 mmol/L (137-145)
[2018-03-28 16:32] LABS: BAND 9 % (0.0-2.0); Basophil 1 % (0.0-1.0); Eosinophil 1 % (0.00-3.0); Lymphocytes 6 % (24-44); Monocyte 11 % (0.0-12.0); Neutrophils 72 % (36.-66.); Total Cells Counted 100
[2018-03-28 16:33] LABS: Platelet Estimate NORMAL (NORMAL)
[2018-03-28 16:34] LABS: Granulocyte Absolute (ANC) 17.6 (1.4-6.9)
[2018-03-28] MEDS ORDERED: Vancomycin 1GM/ Ns 250ML*** 1 GM/250 ML IVPB IV ONE (19:21)
[2018-03-28] MEDS ORDERED: Vancomycin 1GM/ Ns 250ML*** 250 ML IV ONE (19:24)
[2018-03-28 19:56] VITALS: BP 127/72; PULSE 98; O2SAT 95
--- NOTE | 2018-03-28 21:29 | XRAY ---
Indication: Left lower quadrant pain, diarrhea, fever, and elevated WBC. History MRSA. Multiple contiguous axial images obtained through the abdomen and pelvis without contrast as ordered. Comparison: None Lung bases are clear. Heart is not enlarged. Noncontrasted stomach and bowel loops appear nonobstructed. Patient reports appendectomy. Mid to distal sigmoid colon and rectum demonstrates moderate to significant circumferential wall thickening with stranding favoring colitis/proctitis. No free fluid/air. Urinary bladder normally distended with mild wall thickening, possible cystitis. Spleen is enlarged measuring 13.5 cm in axial dimension with a few calcified granulomas. Gallbladder contracted without gallstones. Remaining liver, pancreas, adrenal glands, kidneys, and ureters appear unremarkable for noncontrast exam. Minimal aortoiliac calcifications without AAA. Osseous structures intact with minimal degenerative changes. No ventral or inguinal hernias. Impression: 1. Sigmoid colitis/proctitis as detailed. No complications. 2. Mild urinary bladder wall thickening. Rule out cystitis. 3. Splenomegaly. CTDI 23.66
--- NOTE | 2018-03-28 21:31 | XRAY ---
Indication: Fever and diarrhea. Comparison: Chest exam June 23, 2017. 2 views of the abdomen demonstrates nonspecific bowel gas pattern. No focal bowel dilatation or free air. Solid organs and osseous structures unremarkable. Single PA chest again demonstrates normal heart, lungs, and bony thorax with incidental left hilar calcified node. Impression: Nonacute nonobstructed abdomen. Stable nonacute one view chest.
== END 2018-03-28 20:37 | disposition short-term general hospital (02) ==
LOC: ED 14:14
DX: K52.9 Noninfective gastroenteritis and colitis, unspecified (principal); R10.32 Left lower quadrant pain; D72.829 Elevated white blood cell count, unspecified; Z79.899 Other long term (current) drug therapy; E11.9 Type 2 diabetes mellitus without complications
CPT/HCPCS: 36000; 36415; 74022; 74176; 80048; 82962; 83605; 83690; 85025; 96360; 96361; 96365; 99284; 99285; J3370; A9270-GY

== ENCOUNTER 2018-05-27 15:49 | Inpatient (IN) | payer MEDICARE ==
[2018-05-27] MEDS ORDERED: TYLENOL 325 MG PO PRN (18:04)
[2018-05-27] MEDS ORDERED: Zofran 4 MG/2 ML VIAL IV PRN (18:05)
[2018-05-27] MEDS ORDERED: PHARMACY DOSING REQUIRED: VANCOMYCIN IV ONE (18:05)
[2018-05-27 18:31] LABS: Lactic Acid 3.1 (0.4-2.0)
[2018-05-27 18:46] LABS: Hematocrit 41.2 % (42-50); Hemoglobin 13.8 gm/dl (12.5-18.0); Mean Cell Volume 82.7 fl (78-100); Mean Corpuscular Hemoglobin 27.7 pg (26-32); Mean Corpuscular Hgb Concent. 33.5 g/dl (32-36); Mean Platelet Volume 10.9 fl (6-9.5); Platelet Count 276 K/mm3 (150-450); Red Blood Count 4.98 M/mm3 (4.1-5.6); Red Cell Distribution Width 13.8 % (11.5-14.0); White Blood Count 18.4 K/mm3 (4.0-10.5)
[2018-05-27 18:58] LABS: ALBUMIN 4.4 g/dL (3.5-5.0); ALKALINE PHOSPHATASE 249 U/L (38-126); ANION GAP 17.4 MEQ/L (5-15); BLOOD UREA NITROGEN 8 mg/dL (9-20); CHLORIDE 91 mmol/L (98-107); Calcium 9.4 mg/dL (8.4-10.2); Carbon Dioxide 28 mmol/L (22-30); Creatinine 1 0.91 mg/dL (0.66-1.25); Glucose 318 mg/dL (74-106); SGOT/AST 62 U/L (17-59); SGPT/ALT 79 U/L (0-50); SODIUM 133 mmol/L (137-145); Total Protein 7.9 g/dL (6.3-8.2)
[2018-05-27] MEDS: Sodium Chloride 0.9% 1000 ML 1,000 ML IV SCH (19:19)
[2018-05-27] MEDS ORDERED: TYLENOL EXTRA STRENGTH 500 MG PO PRN (19:49)
[2018-05-27] MEDS ORDERED: MOTRIN 400 MG PO PRN (19:49)
[2018-05-27] MEDS ORDERED: LEVOFLOXACIN 750MG/150ML D5W 750 MG/150 ML BAG IV SCH (20:00)
[2018-05-27] MEDS: Vancomycin 1GM/ Ns 250ML*** 1 GM/250 ML IVPB IV SCH (20:50)
[2018-05-27] MEDS: NovoLOG Insulin SQ PRN (20:58)
[2018-05-28] MEDS: Vancomycin 1GM/ Ns 250ML*** 1 GM/250 ML IVPB IV SCH ×3 (05:36→23:37)
[2018-05-28] MEDS: Sodium Chloride 0.9% 1000 ML 1,000 ML IV SCH (05:36)
[2018-05-28 05:44] LABS: Hematocrit 38.9 % (42-50); Hemoglobin 13.2 gm/dl (12.5-18.0); Mean Cell Volume 83.1 fl (78-100); Mean Corpuscular Hemoglobin 28.2 pg (26-32); Mean Corpuscular Hgb Concent. 33.9 g/dl (32-36); Mean Platelet Volume 11.1 fl (6-9.5); Platelet Count 189 K/mm3 (150-450); Red Blood Count 4.68 M/mm3 (4.1-5.6); Red Cell Distribution Width 13.7 % (11.5-14.0); White Blood Count 18.2 K/mm3 (4.0-10.5)
[2018-05-28] MEDS ORDERED: MOTRIN 400 MG PO PRN (06:35)
[2018-05-28] MEDS ORDERED: TYLENOL EXTRA STRENGTH 500 MG PO PRN (06:36)
--- NOTE | 2018-05-28 08:39 | XRAY ---
Indication: Left chin cellulitis. Multiple contiguous axial images obtained through the facial bones. Sagittal and coronal reformatted images obtained. Comparison: None There is mild focal soft tissue swelling/induration involving the left chin consistent with known cellulitis. No walled off fluid collection/abscess or air bubbles. Small submandibular and cervical lymph nodes, left greater than right presumed reactive. Osseous structures intact without suspicious bony lesions. Paranasal sinuses and nasal passages clear. Mild nasal septal deviation to the left. Remaining visualized noncontrasted soft tissues including base of the brain unremarkable. Impression: Left chin cellulitis with small reactive lymph nodes. CTDI 59.47
--- NOTE | 2018-05-28 08:55 | CONS ---
CONSULT DATE: 05/27/2018 HISTORY: The patient was a direct admit. A noncompliant diabetic with necrotizing soft tissue infections in the past. He is not NPO today. He was admitted for an area on his chin and his back. He has scans pending at this time. I do not see any blood work on the chart at this point. No chest pain or palpitation. Again, he was a direct admit. I do not see any labs on the chart yet. PAST MEDICAL HISTORY: Diabetes with poor compliance. Hypertension noncompliant. History of recurrent soft tissue infections. He has not seen an infection doctor in the past. Partial blindness. PAST SURGICAL HISTORY: Appendectomy. Right knee surgery. Extensive necrotizing surgery by Dr. Ferris in the past. He had another I&D in the past. Abscess surgery. MEDICATIONS: He had been on Levaquin in the past. ALLERGIES: SULFA, PENICILLIN. FAMILY HISTORY: Negative in regards to this problem. SOCIAL HISTORY: No alcohol abuse. REVIEW OF SYSTEMS: Twelve systems reviewed per preadmission assessment and preadmission questionnaire. PHYSICAL EXAMINATION: GENERAL: A chronically ill gentleman. HEENT: Sclera nonicteric. Soft tissue infection under his chin with small amount of drainage. NECK: No JVD. CHEST: Equal excursion, nonlabored breathing. ABDOMEN: Soft, nondistended, nontender. EXTREMITIES: No cyanosis. BACK: Currently on his back he has another soft tissue infection on upper back. NEURO: Alert, moving extremities grossly symmetrically. IMPRESSION: Recurrent soft tissue infection on his neck and back. He had extensive major procedure by Dr. Ferris in the past on his back. Continue antibiotics. Continue treating his medical problems. As he is not NPO he is not a surgical candidate now. Continue medical management for now. Noncompliant diabetic patient with recurrent soft tissue infection, had extensive surgeries by Dr. Ferris in the past. He had I&D in the past. History of recurrent infection under his chin and on his back. He is not NPO so he is not a candidate for surgical intervention at this time. Will continue on IV antibiotics. Scans pending. Labs pending. Continue IV antibiotics. He will likely might need to consider talking to infection doctor due to recurrent infections. Otherwise, if he fails to improve might need consideration of drainage of these sites or debridement. General risk of bleeding or infection, risk of ongoing infection possibly requiring other procedures particularly if he continues to fail to treat his medical problems. Overall risk of ongoing morbidity. Continue IV antibiotics. He is not a candidate for I&D currently. He will be NPO after midnight in case things change.
[2018-05-28] MEDS: Zestril 10 MG PO SCH (10:06)
[2018-05-28] MEDS ORDERED: Heparin 1000 units/ml (10 Ml vial) 1,000 U in Sodium Chloride 0.9% 500 ML 500 ML IV ONE (10:47)
--- NOTE | 2018-05-28 11:10 | PCM.NOTE ---
Date and Time: 05/28/18 1109 Subjective Assessment: doing ok, no fever - Review of Systems Constitutional: No Fever, No Chills Eyes: No Symptoms Ears, Nose, & Throat: No Symptoms Respiratory: No Cough, No Short Of Breath Cardiac: No Chest Pain, No Edema, No Syncope Abdominal/Gastrointestinal: No Abdominal Pain, No Nausea, No Vomiting, No Diarrhea Genitourinary Symptoms: No Dysuria Musculoskeletal: No Back Pain, No Neck Pain Skin: No Rash Neurological: No Dizziness, No Focal Weakness, No Sensory Changes Psychological: No Symptoms Endocrine: No Symptoms Hematologic/Lymphatic: No Symptoms Immunological/Allergic: No Symptoms Objective Exam General Appearance: no apparent distress, alert Neurologic Exam: alert, oriented x 3, cooperative, normal mood/affect, nml cerebellar function, sensation nml, No motor deficits Skin Exam: normal color, warm, dry Eye Exam: PERRL, EOMI, eyes nml inspection Ears, Nose, Throat Exam: normal ENT inspection, pharynx normal, moist mucous membranes Neck Exam: normal inspection, non-tender, supple, full range of motion Respiratory Exam: normal breath sounds, lungs clear, No respiratory distress Cardiovascular Exam: regular rate/rhythm, normal heart sounds Gastrointestinal/Abdomen Exam: soft, No tenderness, No mass Extremity Exam: normal inspection, normal range of motion Back Exam: normal inspection, normal range of motion, No CVA tenderness, No vertebral tenderness Male Genitalia Exam: deferred Rectal Exam: deferred OBJECTIVE DATA Vital Signs: Vital Signs - 24 hr Temp Pulse Resp BP BP Pulse Ox 05/28/18 07:48 99.8 F 92 H 18 165/96 94 L 05/28/18 04:00 98.8 F 88 18 164/88 93 L 05/28/18 00:00 98.8 F 108 H 18 143/89 92 L 05/27/18 20:00 99.8 F 107 H 20 194/94 96 05/27/18 16:57 98.4 F 97 H 22 185/94 96 05/27/18 16:38 98.4 F 97 H 22 185/94 96 Pain Assessment - Last Documented Pain Intensity 10 Pain Scale Used 0-10 Pain Scale Intake and Output: Intake & Output 05/25/18 05/26/18 05/27/18 05/28/18 11:59 11:59 11:59 11:59 Intake Total 892 Balance 892 Weight 103.7 kg Lab Results: Accuchecks Date 05/28/18 Date 05/27/18 Time 07:29 Accucheck Value: 203 Accucheck Value: 329 Lab Results-Last 24 Hours 05/27/18 05/27/18 05/27/18 Range/Units 17:53 17:53 18:15 WBC 18.4 H (4.0-10.5) K/mm3 RBC 4.98 (4.1-5.6) M/mm3 Hgb 13.8 (12.5-18.0) gm/dl Hct 41.2 L (42-50) % MCV 82.7 (78-100) fl MCH 27.7 (26-32) pg MCHC 33.5 (32-36) g/dl RDW 13.8 (11.5-14.0) % Plt Count 276 (150-450) K/mm3 MPV 10.9 H (6-9.5) fl Sodium 133 L (137-145) mmol/L Potassium 4.0 (3.5-5.1) mmol/L Chloride 91 L (98-107) mmol/L Carbon Dioxide 28 (22-30) mmol/L Anion Gap 17.4 H (5-15) MEQ/L BUN 8 L (9-20) mg/dL Creatinine 0.91 (0.66-1.25) mg/dL Estimated GFR > 60.0 ML/MIN Glucose 318 H (74-106) mg/dL Hemoglobin A1c 8.73 H (4.5-6.0) % Lactic Acid (0.4-2.0) Calcium 9.4 (8.4-10.2) mg/dL Total Bilirubin 0.90 (0.2-1.3) mg/dL AST 62 H (17-59) U/L ALT 79 H (0-50) U/L Alkaline Phosphatase 249 H (38-126) U/L Serum Total Protein 7.9 (6.3-8.2) g/dL Albumin 4.4 (3.5-5.0) g/dL 05/27/18 05/27/18 05/28/18 Range/Units 18:23 21:05 05:41 WBC 18.2 H (4.0-10.5) K/mm3 RBC 4.68 (4.1-5.6) M/mm3 Hgb 13.2 (12.5-18.0) gm/dl Hct 38.9 L (42-50) % MCV 83.1 (78-100) fl MCH 28.2 (26-32) pg MCHC 33.9 (32-36) g/dl RDW 13.7 (11.5-14.0) % Plt Count 189 (150-450) K/mm3 MPV 11.1 H (6-9.5) fl Sodium (137-145) mmol/L Potassium (3.5-5.1) mmol/L Chloride (98-107) mmol/L Carbon Dioxide (22-30) mmol/L Anion Gap (5-15) MEQ/L BUN (9-20) mg/dL Creatinine (0.66-1.25) mg/dL Estimated GFR ML/MIN Glucose (74-106) mg/dL Hemoglobin A1c (4.5-6.0) % Lactic Acid 3.1 H 1.8 (0.4-2.0) Calcium (8.4-10.2) mg/dL Total Bilirubin (0.2-1.3) mg/dL AST (17-59) U/L ALT (0-50) U/L Alkaline Phosphatase (38-126) U/L Serum Total Protein (6.3-8.2) g/dL Albumin (3.5-5.0) g/dL Radiology Exams: Radiology Procedures Category Date Time Status FACIAL BONES WO CONTRAST [CT] Urgent Exams 05/27/18 17:53 Completed GUIDE FOR VASCULAR ACCESS [US] Routine Exams 05/28/18 09:39 Ordered PICC LINE PLACEMENT Routine Exams 05/28/18 Ordered THORACIC SPINE W/O CONTRAST [CT] Routine Exams 05/27/18 18:15 Taken Assessment/Plan (1) Abscess of upper back excluding scapular region Current Visit: Yes Status: Acute Onset Date: ~05/27/18 Code(s): L02.212 - CUTANEOUS ABSCESS OF BACK [ANY PART, EXCEPT BUTTOCK] (2) Cellulitis Current Visit: Yes Status: Acute Onset Date: ~05/27/18 Code(s): L03.90 - CELLULITIS, UNSPECIFIED (3) Elevated WBC count Current Visit: Yes Status: Acute Onset Date: ~05/27/18 Code(s): D72.829 - ELEVATED WHITE BLOOD CELL COUNT, UNSPECIFIED
--- NOTE | 2018-05-28 12:06 | XRAY ---
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 Informed consent obtained. Patient was placed on the fluoroscopic table in a supine position. Initial sonographic imaging of the right upper extremity was performed for localization of patent veins. The right upper extremity was then prepped and draped in sterile fashion. Tourniquet applied. 1% lidocaine plain used for local anesthesia. Using ultrasound guidance and a micropuncture needle, a basilic vein above the elbow was successfully percutaneously cannulized. A floppy tip 0.018 guidewire inserted. Tourniquet released. Needle was exchanged for a 5 Australian dilator peel-away sheath catheter. Ultimately a 5 Australian double-lumen PICC line was inserted over a longer 0.018 guidewire with the tip positioned in the distal SVC using fluoroscopic guidance. Guidewire removed. Both ports flushed with heparinized saline. Catheter was secured. Postoperative instructions and orders given. Patient discharged in good condition. Impression: Technically successful right upper extremity PICC line placement using ultrasound and fluoroscopic guidance. No immediate complications. Approximately 2 cc blood loss. Approximately 0.2 minute of fluoroscopy used. Catheter length is 47 cm.
--- NOTE | 2018-05-28 12:07 | XRAY ---
Indication: Ultrasound guidance for PICC line placement. Initial sonographic imaging of the right upper extremity was performed for localization of patent veins. A patent basilic vein identified above the elbow. Ultrasound guidance was then used for PICC line insertion. Full PICC line insertion is reported separately.
[2018-05-28] MEDS ORDERED: Lactated Ringers 1,000 ML IV SCH (14:30)
[2018-05-28] MEDS ORDERED: Lactated Ringers 1,000 ML IV ONE (14:51)
[2018-05-28] MEDS ORDERED: XYLOCAINE 1% HCL 20 ML MDV ONE (14:51)
[2018-05-28] MEDS ORDERED: Sensorcaine 0.25% 10 ML ONE (14:51)
[2018-05-28] MEDS ORDERED: Sodium Chloride 0.9% 1000 ML 1,000 ML ONE ×2 (16:04→16:33)
[2018-05-28] MEDS: LEVOFLOXACIN 750MG/150ML D5W 750 MG/150 ML BAG IV SCH (21:59)
[2018-05-28] MEDS: NovoLOG Insulin SQ PRN (22:05)
[2018-05-29] MEDS: MORPHINE SULFATE 2 MG INJ IV PRN ×4 (00:44→21:51)
[2018-05-29] MEDS: Vancomycin 1GM/ Ns 250ML*** 1 GM/250 ML IVPB IV SCH ×2 (01:50→06:51)
[2018-05-29] MEDS ORDERED: TROUGH DRUG LEVELS IJ ONE (05:30)
[2018-05-29] MEDS: NovoLOG Insulin SQ PRN ×4 (08:26→21:52)
[2018-05-29] MEDS ORDERED: DIPRIVAN 200 MG/20 ML IV ONE (09:51)
[2018-05-29] MEDS ORDERED: Zemuron 100 MG/10 ML IV ONE (09:51)
[2018-05-29] MEDS ORDERED: Ephedrine Sulfate 50 MG/ML IV ONE (09:51)
[2018-05-29] MEDS ORDERED: Quelicin Fliptop 200 MG/10 ML IV ONE (09:51)
[2018-05-29] MEDS ORDERED: PHENYLEPHRINE HCL IV ONE (09:51)
[2018-05-29] MEDS: Zestril 10 MG PO SCH (10:20)
[2018-05-29] MEDS: VANCOCIN 1 GM VIAL*** 1.5 GM in Sodium Chloride 0.9% 500 ML 500 ML IV SCH ×2 (11:42→23:24)
--- NOTE | 2018-05-29 12:36 | PCM.NOTE ---
Date and Time: 05/29/18 1235 Subjective Assessment: fever today - Review of Systems Constitutional: No Fever, No Chills Eyes: No Symptoms Ears, Nose, & Throat: No Symptoms Respiratory: No Cough, No Short Of Breath Cardiac: No Chest Pain, No Edema, No Syncope Abdominal/Gastrointestinal: No Abdominal Pain, No Nausea, No Vomiting, No Diarrhea Genitourinary Symptoms: No Dysuria Musculoskeletal: No Back Pain, No Neck Pain Skin: No Rash Neurological: No Dizziness, No Focal Weakness, No Sensory Changes Psychological: No Symptoms Endocrine: No Symptoms Hematologic/Lymphatic: No Symptoms Immunological/Allergic: No Symptoms Objective Exam General Appearance: no apparent distress, alert Neurologic Exam: alert, oriented x 3, cooperative, normal mood/affect, nml cerebellar function, sensation nml, No motor deficits Skin Exam: normal color, warm, dry Eye Exam: PERRL, EOMI, eyes nml inspection Ears, Nose, Throat Exam: normal ENT inspection, pharynx normal, moist mucous membranes Neck Exam: normal inspection, non-tender, supple, full range of motion Respiratory Exam: normal breath sounds, lungs clear, No respiratory distress Cardiovascular Exam: regular rate/rhythm, normal heart sounds Gastrointestinal/Abdomen Exam: soft, No tenderness, No mass Extremity Exam: normal inspection, normal range of motion Back Exam: normal inspection, normal range of motion, No CVA tenderness, No vertebral tenderness Male Genitalia Exam: deferred Rectal Exam: deferred OBJECTIVE DATA Vital Signs: Vital Signs - 24 hr Temp Pulse Resp BP BP Pulse Ox 05/29/18 10:31 98.3 F 82 18 128/73 91 L 05/29/18 07:00 99 F 80 20 139/67 100 05/29/18 03:58 99.3 F 95 H 18 134/71 93 L 05/29/18 00:32 102.0 F 113 H 18 120/57 94 L 05/28/18 23:35 93 L 05/28/18 21:15 99.3 F 109 H 18 120/55 92 L 05/28/18 20:15 98.8 F 105 H 17 113/63 91 L 05/28/18 19:15 100.3 F 104 H 17 108/62 92 L 05/28/18 18:45 98.1 F 104 H 17 114/72 92 L 05/28/18 18:15 98.0 F 111 H 18 130/71 93 L 11/07/18 18:00 99 F 108 H 16 132/72 91 L 05/28/18 13:58 98.8 F 100 H 18 136/84 97 Oxygen-Last 24 hours O2 Percentage 3 Liters = 32% O2 Percentage 3 Liters = 32% Pain Assessment - Last Documented Pain Intensity 0 Pain Scale Used FLACC Intake and Output: Intake & Output 05/27/18 05/28/18 05/29/18 05/30/18 11:59 11:59 11:59 11:59 Intake Total 892 4195 480 Output Total 3100 700 Balance 892 1095 -220 Weight 103.7 kg 103.7 kg Lab Results: Accuchecks Date 05/29/18 Date 05/29/18 Date 05/28/18 Date 05/28/18 Time 11:30 Time 07:30 Time 21:00 Time 16:00 Accucheck Value: 325 Accucheck Value: 234 Accucheck Value: 324 Accucheck Value: 160 Radiology Exams: Radiology Procedures Category Date Time Status FACIAL BONES WO CONTRAST [CT] Urgent Exams 05/27/18 17:53 Completed GUIDE FOR VASCULAR ACCESS [US] Routine Exams 05/28/18 09:39 Completed PICC LINE PLACEMENT Routine Exams 05/28/18 11:46 Completed THORACIC SPINE W/O CONTRAST [CT] Routine Exams 05/27/18 18:15 Taken Multi-Disciplinary Progress Notes: Multi-Disciplinary Progress Notes 05/29/18 11:15 (created 05/29/18 11:24) Case Management Note by Belinda Bobo DR. ROUNDED AND EVALUATED, DISCUSSED DX AND TREATMENT WITH PT. PT BARELY OPENS EYES AND DOES NOT ENGAGE IN CONVERSATION. REPORTS THAT SURGERY WILL SIGN OFF AT THIS TIME. OKAY FOR DISCHARGE TOMORROW, FROM [facility]. PLAN FOR DAILY DRESSING CHANGES AND IV ABX BID IN OUTPATIENT SETTING. WILL F/U WITH DR. CORONADO ON DISCHARGE. Initialized on 05/29/18 11:24 - END OF NOTE 05/29/18 11:00 (created 05/29/18 11:10) Case Management Note by Belinda Bobo REVIEWED DISCHARGE PLAN WITH PT'S . REPORTS THAT THEY ARE PLANNING TO COME TO OUTPATIENT IV INFUSION FOR CONTINUED IV ABX AND WOUND CARE. UNDERSTAND THAT PT WILL HAVE TO COME TWICE DAILY. REPORTS THAT THEY WILL MAKE ARRANGEMENTS. DENIES ADDNL NEEDS FOR DISCHARGE. WILL FOLLOW. Initialized on 05/29/18 11:10 - END OF NOTE 05/28/18 12:45 (created 05/28/18 12:57) Case Management Note by Belinda Bobo DR. ROUNDED AND EVALUATED, DISCUSSED DX AND PLAN OF CARE WITH PT AND . PT DID NOT ENGAGE IN CONVERSATION. VERBALIZED UNDERSTANDING TO ALL INFORMATION PROVIDED BY DR. JOHN AND ABLE TO REPEAT INFORMATION BACK. IN AGREEMENT WITH PLAN OF CARE. DR. JOHN STRESSED SEVERITY OF THIS INFECTION AND THE NEED FOR FOLLOWUP, ABX, AND WOUND CARE. AGAIN, VERBALIZED UNDERSTANDING AND ABLE TO REPEAT INFORMATION BACK, PT DID NOT ENGAGE IN CONVERSATION. DENIES ADDNL NEEDS AT PRESENT TIME. WILL FOLLOW FOR ALL DC NEEDS. Initialized on 05/28/18 12:57 - END OF NOTE Assessment/Plan (1) Abscess of upper back excluding scapular region Current Visit: Yes Status: Acute Onset Date: ~05/27/18 Assessment & Plan: Last Vital Signs Temp 98.3 F 05/29/18 10:31 Pulse 82 05/29/18 10:31 Resp 18 05/29/18 10:31 BP 128/73 05/29/18 10:31 Pulse Ox 91 L 05/29/18 10:31 Allergies Penicillins Allergy (Mild, Verified 05/27/18 16:58) Rash Active Medications Acetaminophen (Tylenol Extra Strength 500 Mg) 500 mg PO Q4H PRN PRN PRN Reason: PAIN Stop: 06/27/18 06:35 Last Admin: 05/28/18 23:30 Dose: 500 mg Device (Trough Drug Levels) 1 IJ 1XONLY ONE Stop: 05/30/18 05:31 Sodium Chloride (Sodium Chloride 0.9% 1000 Ml) 1,000 mls @ 100 mls/hr IV .Q10H LEO Stop: 06/26/18 18:14 Last Admin: 05/28/18 05:36 Dose: 100 mls/hr Levofloxacin/Dextrose (Levofloxacin 750mg/150ml D5w) 750 mg in 150 mls @ 100 mls/hr IV Q24H22 LEO Stop: 06/26/18 19:59 Last Admin: 05/28/18 21:59 Dose: 100 mls/hr Vancomycin HCl 1.5 gm/ Sodium (Chloride) 500 mls @ 250 mls/hr IV Q12HT LEO Stop: 06/28/18 11:14 Last Admin: 05/29/18 11:42 Dose: 250 mls/hr Ibuprofen (Motrin 400 Mg) 400 mg PO Q4H PRN PRN PRN Reason: PAIN Stop: 06/27/18 06:34 Insulin Aspart (Novolog Insulin) 0 unit SQ UD PRN PRN Reason: HYPERGLYCEMIA Stop: 06/26/18 18:05 Last Admin: 05/29/18 11:42 Dose: 6 unit Lisinopril (Zestril 10 Mg) 10 mg PO DAILY LEO Stop: 06/27/18 09:59 Last Admin: 05/29/18 10:20 Dose: 10 mg Morphine Sulfate (Morphine Sulfate 2 Mg Inj) 2 mg IV Q2H PRN PRN PRN Reason: PAIN Stop: 06/02/18 19:23 Last Admin: 05/29/18 08:26 Dose: 2 mg Ondansetron HCl (Zofran 4 Mg/2 Ml Vial) 4 mg IV Q6H PRN PRN PRN Reason: NAUSEA/VOMITING Stop: 06/26/18 18:04 Intake & Output 05/29/18 05/30/18 11:59 11:59 Intake Total 4195 480 Output Total 3100 700 Balance 1095 -220 Weight 103.7 kg Microbiology 05/27/18 18:15 Blood Blood Culture - Preliminary NO GROWTH TO DATE 05/27/18 18:15 Blood Blood Culture - Preliminary NO GROWTH TO DATE 05/27/18 20:30 Back - Right Upper Abscess Culture - Preliminary GRAM POSITIVE ID AND SENSITIVITY PENDING Code(s): L02.212 - CUTANEOUS ABSCESS OF BACK [ANY PART, EXCEPT BUTTOCK] (2) Cellulitis Current Visit: Yes Status: Acute Onset Date: ~05/27/18 Code(s): L03.90 - CELLULITIS, UNSPECIFIED (3) Elevated WBC count Current Visit: Yes Status: Acute Onset Date: ~05/27/18 Code(s): D72.829 - ELEVATED WHITE BLOOD CELL COUNT, UNSPECIFIED
[2018-05-29] MEDS: Sodium Chloride 0.9% 1000 ML 1,000 ML IV SCH (16:04)
[2018-05-29] MEDS ORDERED: Versed 2 MG/2 ML Injection IV ONE (16:24)
[2018-05-29] MEDS ORDERED: SUBLIMAZE 250 MCG/5 ML IV ONE (16:24)
--- NOTE | 2018-05-29 16:42 | XRAY ---
Indication: Right upper back shoulder cellulitis/abscess. Multiple contiguous axial images obtained through the thoracic spine. Sagittal and coronal reformatted images obtained. Comparison: CT chest March 03, 2018. Upper back demonstrates new cutaneous/subcutaneous soft tissue swelling and induration just right of midline, approximately C7-T1 level. This is incompletely evaluated as it appears to extend superiorly. No walled off fluid collection or air bubbles. Thoracic spine demonstrates stable minimal multilevel degenerative endplate spurring. No acute fracture, suspicious bony lesions, or spinal canal stenosis. Sagittal and coronal reformatted images demonstrates normal alignment with vertebral body heights and disc spaces maintained. Remaining visualized noncontrasted soft tissues demonstrates stable left apical and left hilar calcified granulomas. Impression: 1. New incompletely visualized right upper back cellulitis. 2. Again minimal degenerative spondylosis and evidence for old granulomatous disease. CT DI 123.91
[2018-05-29] MEDS: LEVOFLOXACIN 750MG/150ML D5W 750 MG/150 ML BAG IV SCH (21:50)
[2018-05-30] MEDS: Sodium Chloride 0.9% 1000 ML 1,000 ML IV SCH (03:39)
[2018-05-30] MEDS ORDERED: TROUGH DRUG LEVELS IJ ONE (05:30)
[2018-05-30] MEDS: VANCOCIN 1 GM VIAL*** 1.5 GM in Sodium Chloride 0.9% 500 ML 500 ML IV SCH (09:43)
[2018-05-30] MEDS: Zestril 10 MG PO SCH (09:43)
--- NOTE | 2018-05-30 12:09 | PCM.DS ---
Discharge Summary Date of Admission: 05/27/18 16:25 Admitting Physician: ELVA LEE Consults: Consults on Case 05/27/18 17:30 Consult Surgery ROUTINE Primary Care Provider: ELVA LEE Allergies Allergies Penicillins Allergy (Mild, Verified 05/27/18 16:58) Rash Hospital Summary - Hospital Course Hospital Course: Last Vital Signs Temp 97.7 F 05/30/18 07:00 Pulse 86 05/30/18 07:00 Resp 20 05/30/18 07:00 BP 159/82 05/30/18 07:00 Pulse Ox 89 L 05/30/18 07:00 Allergies Penicillins Allergy (Mild, Verified 05/27/18 16:58) Rash Active Medications Acetaminophen (Tylenol Extra Strength 500 Mg) 500 mg PO Q4H PRN PRN PRN Reason: PAIN Stop: 06/27/18 06:35 Last Admin: 05/28/18 23:30 Dose: 500 mg Sodium Chloride (Sodium Chloride 0.9% 1000 Ml) 1,000 mls @ 100 mls/hr IV .Q10H LEO Stop: 06/26/18 18:14 Last Admin: 05/30/18 03:39 Dose: 100 mls/hr Levofloxacin/Dextrose (Levofloxacin 750mg/150ml D5w) 750 mg in 150 mls @ 100 mls/hr IV Q24H22 LEO Stop: 06/26/18 19:59 Last Admin: 05/29/18 21:50 Dose: 100 mls/hr Vancomycin HCl 1.5 gm/ Sodium (Chloride) 500 mls @ 250 mls/hr IV Q12HT LEO Stop: 06/28/18 11:14 Last Admin: 05/30/18 09:43 Dose: 250 mls/hr Ibuprofen (Motrin 400 Mg) 400 mg PO Q4H PRN PRN PRN Reason: PAIN Stop: 06/27/18 06:34 Insulin Aspart (Novolog Insulin) 0 unit SQ UD PRN PRN Reason: HYPERGLYCEMIA Stop: 06/26/18 18:05 Last Admin: 05/29/18 21:52 Dose: 2 unit Lisinopril (Zestril 10 Mg) 10 mg PO DAILY LEO Stop: 06/27/18 09:59 Last Admin: 05/30/18 09:43 Dose: 10 mg Morphine Sulfate (Morphine Sulfate 2 Mg Inj) 2 mg IV Q2H PRN PRN PRN Reason: PAIN Stop: 06/02/18 19:23 Last Admin: 05/29/18 21:51 Dose: 2 mg Ondansetron HCl (Zofran 4 Mg/2 Ml Vial) 4 mg IV Q6H PRN PRN PRN Reason: NAUSEA/VOMITING Stop: 06/26/18 18:04 Intake & Output 05/30/18 05/31/18 11:59 11:59 Intake Total 1920 Output Total 1000 Balance 920 Orders 05/30/18 Discharge Routine Discharge Transfer Routine Microbiology 05/27/18 20:30 Back - Right Upper Abscess Culture - Final Methicillin Resist Staph Aur 05/28/18 16:30 Back - Not Known Wound Culture - Preliminary GRAM POSITIVE ID AND SENSITIVITY PENDING 05/27/18 18:15 Blood Blood Culture - Preliminary NO GROWTH TO DATE 05/27/18 18:15 Blood Blood Culture - Preliminary NO GROWTH TO DATE - Vitals & Intake/Output Vital Signs: Vital Signs Temperature 97.7 F 05/30/18 07:00 Pulse Rate 86 05/30/18 07:00 Respiratory Rate 20 05/30/18 07:00 Blood Pressure 159/82 05/30/18 07:00 O2 Sat by Pulse Oximetry 89 L 05/30/18 07:00 Oxygen-Last Documented O2 Percentage 3 Liters = 32% Intake & Output: Intake & Output 05/28/18 05/29/18 05/30/18 05/31/18 11:59 11:59 11:59 11:59 Intake Total 892 4195 1920 Output Total 3100 1000 Balance 892 1095 920 Weight 103.7 kg 103.7 kg - Lab Result Diagrams: 05/28/18 05:41 05/27/18 17:53 Lab Results-Last 24 Hrs: Accuchecks Date 05/30/18 Date 05/29/18 Date 05/29/18 Time 07:30 Time 21:38 Time 16:30 Accucheck Value: 164 Accucheck Value: 209 Accucheck Value: 306 Micro Results-Entire Visit: Microbiology 05/27/18 20:30 Abscess Culture - Final Back - Right Upper Methicillin Resist Staph Aur 05/28/18 16:30 Wound Culture - Preliminary Back - Not Known GRAM POSITIVE ID AND SENSITIVITY PENDING 05/27/18 18:15 Blood Culture - Preliminary Blood NO GROWTH TO DATE 05/27/18 18:15 Blood Culture - Preliminary Blood NO GROWTH TO DATE Accuchecks Date 05/30/18 Date 05/29/18 Date 05/29/18 Time 07:30 Time 21:38 Time 16:30 Accucheck Value: 164 Accucheck Value: 209 Accucheck Value: 306 - Radiology Exams Ordered Rad Exams-Entire Visit: Radiology Procedures Category Date Time Status PICC LINE PLACEMENT Routine Exams 05/28/18 11:46 Completed - Procedures and Test Procedures and Tests throughout Hospitalization: Therapy Orders & Screens 05/27/18 17:05 OT Screen per Nursing Assess Comment: Protocol Order Physician Instructions: Greater than 3 points order OT Admission Screening Reason For Exam: Triggered on Admission Diagnosis: ABSCESS Open Wound/Cellutlitis/Pressure Ulcers: Yes Acute Fx/ORIF/Change in wt bearing status: No Severe MUSCULOSKELETAL pain: No ADL Dysfunction: No Acute CVA w/Hemiparesis/Hemiplegia: No Decreased Functional Mobility/Strength: No Sprain/Strain: No Acute Post-op Mobility Dysfunction: No Total Points: 5 PT Screen per Nursing Assess Comment: Protocol Order Physician Instructions: Greater than 3 points order PT Admission Screenin Reason For Exam: Triggered on Admission Diagnosis: ABSCESS Open Wound/Cellutlitis/Pressure Ulcers: Yes Acute Fx/ORIF/Change in wt bearing status: No Severe MUSCULOSKELETAL pain: No ADL Dysfunction: No Acute CVA w/Hemiparesis/Hemiplegia: No Decreased Functional Mobility/Strength: No Sprain/Strain: No Acute Post-op Mobility Dysfunction: No Total Points: 5 05/28/18 23:30 Oxygen NASAL CANNULA 2 lpm Comment: Diagnosis: Cellulitis/Abscess of back and chin 05/28/18 23:31 Respiratory Therapy Assessment DAILY Comment: Diagnosis: Cellulitis/Abscess of back and chin Discharge Exam General Appearance: no apparent distress, alert Neurologic Exam: alert, oriented x 3, cooperative, normal mood/affect, nml cerebellar function, sensation nml, No motor deficits Skin Exam: normal color, warm, dry Eye Exam: PERRL, EOMI, eyes nml inspection Ears, Nose, Throat Exam: normal ENT inspection, pharynx normal, moist mucous membranes Neck Exam: normal inspection, non-tender, supple, full range of motion Respiratory Exam: normal breath sounds, lungs clear, No respiratory distress Cardiovascular Exam: regular rate/rhythm, normal heart sounds Gastrointestinal/Abdomen Exam: soft, No tenderness, No mass Extremity Exam: normal inspection, normal range of motion Back Exam: normal inspection, normal range of motion, No CVA tenderness, No vertebral tenderness Male Genitalia Exam: deferred Rectal Exam: deferred Final Diagnosis/Problem List - Final Discharge Diagnosis/Problem (1) Abscess of upper back excluding scapular region Current Visit: Yes Status: Acute Onset Date: ~05/27/18 (2) Cellulitis Current Visit: Yes Status: Acute Onset Date: ~05/27/18 (3) Elevated WBC count Current Visit: Yes Status: Acute Onset Date: ~05/27/18 - Discharge Discharge Date: 05/30/18 Disposition: Swing Bed @ [facility] Condition: Stable Prescriptions: No Action Lisinopril 10 mg [Zestril 10 MG] 10 mg PO DAILY 14 Days #14 tablet Insulin Lispro [Humalog] 10 unit SQ TIDWMEALS Insulin Detemir [Levemir] 27 unit SQ DAILY Follow up with: ELVA LEE [Primary Care Provider] - 1 Week
[2018-05-30] MEDS: NovoLOG Insulin SQ PRN (12:11)
[2018-05-30 13:08] VITALS: BP 135/76; PULSE 74; O2SAT 91
--- NOTE | 2018-06-04 12:55 | OP ---
SURGERY DATE/TIME: 05/28/2018 1558 PREOPERATIVE DIAGNOSIS: Abscesses with necrosis back as well as anterior neck and posterior neck. POSTOPERATIVE DIAGNOSIS: Abscesses with necrosis back as well as anterior neck and posterior neck. PROCEDURES: 1) Excisional biopsy of 4 x 2 cm back abscess cavity with irrigation, culture and packing. 2) Excisional biopsy of 2 to 2.5 cm anterior neck extending up to the chin and face area abscess cavity with irrigation, culture and packing. 3) Excisional biopsy of a 1 cm posterior neck abscess cavity with irrigation, culture and packing. SURGEON: Dr. Frank Palm. ANESTHESIA: General. ESTIMATED BLOOD LOSS: Minimal. INDICATIONS: As noted above. Risks and benefits explained in detail and not limited to and consent obtained. DESCRIPTION OF PROCEDURE AND FINDINGS: The patient is taken to the operating room. General anesthesia induced. Positioned in lateral position. Anterior neck and face, posterior neck and back prepped and draped in usual sterile fashion. After official time out and no disagreement with planned procedure, the face was carefully excised out to normal subcutaneous tissue, upper part of the neck and face area excising purulent devitalized abscess cavity, subcu fat and passed off. Cultures taken. Irrigated out. Good hemostasis noted. It was then packed with saline soaked gauze. Attention is then turned to the posterior neck. A 1 cm dissection carried down to what appeared viable tissue. It is cultured, irrigated and packed as well, this was a 1 cm area on the anterior neck and extending up on the face of 2 to 2.5 cm in size. Attention is then turned to the abscess cavity on the back, this was excised out to healthy tissue, then extended back towards the fascia this is 4 x 3 cm excising out to viable tissue including some of the underlying fascia. The wound is irrigated out. Culture had been taken. Irrigated and packed with normal saline soaked wet to dry. Sterile dressing applied. The patient tolerated the procedure well. There were no immediate complications. Findings discussed with the family out in the waiting area. He was transferred back to the recovery room in stable condition.
== END 2018-05-30 14:00 | disposition swing bed (61) | DRG 603 ==
LOC: MED SURG 16:25
PROVIDERS: ADMIT General Practice; ATTEND General Practice
PROC: 0JB70ZX Excision of Back Subcutaneous Tissue and Fascia, Open Approach, Diagnostic (ICD-10-PCS; principal; 2018-05-28)
PROC: 0HB4XZX Excision of Neck Skin, External Approach, Diagnostic (ICD-10-PCS; 2018-05-28)
DX: L03.312 Cellulitis of back [any part except buttock and flank] (principal); L02.11 Cutaneous abscess of neck; L02.212 Cutaneous abscess of back [any part, except buttock and flank]; D72.829 Elevated white blood cell count, unspecified; Z79.899 Other long term (current) drug therapy; E11.65 Type 2 diabetes mellitus with hyperglycemia; Z79.4 Long term (current) use of insulin; I10 Essential (primary) hypertension; R53.83 Other fatigue; R11.0 Nausea
CPT/HCPCS: 36415; 36569; 70486; 72128; 76937; 77001; 80053; 82962; 83036; 83605; 85027; 87040; 87070; 87077; 87186; 88304; 94760; 99140; C1769; J0330; J1642; J1644; J1956; J2250; J2270; J2370; J2704; J3010; J3370; A9270-GY

== ENCOUNTER 2018-05-30 09:48 | Inpatient (IN) | payer MEDICARE ==
[2018-05-30] MEDS ORDERED: TYLENOL EXTRA STRENGTH 500 MG PO PRN (14:56)
[2018-05-30] MEDS ORDERED: Zofran 4 MG/2 ML VIAL IV PRN (14:56)
[2018-05-30] MEDS ORDERED: Aplisol ID ONE (14:56)
[2018-05-30] MEDS ORDERED: MORPHINE SULFATE 2 MG INJ IV PRN (14:56)
[2018-05-30] MEDS: Sodium Chloride 0.9% 1000 ML 1,000 ML IV SCH (15:42)
[2018-05-30] MEDS: NovoLOG Insulin SQ PRN ×2 (16:58→21:11)
[2018-05-30] MEDS: MOTRIN 400 MG PO PRN (17:42)
[2018-05-30] MEDS: LEVOFLOXACIN 750MG/150ML D5W 750 MG/150 ML BAG IV SCH (21:11)
[2018-05-30] MEDS: VANCOCIN 1 GM VIAL*** 1.5 GM in Sodium Chloride 0.9% 500 ML 500 ML IV SCH (22:52)
[2018-05-31] MEDS: Sodium Chloride 0.9% 1000 ML 1,000 ML IV SCH ×2 (04:53→18:01)
[2018-05-31] MEDS: NovoLOG Insulin SQ PRN ×4 (07:51→21:22)
--- NOTE | 2018-05-31 09:47 | PCM.NOTE ---
Date and Time: 05/31/18 0945 Subjective Assessment: doing ok - Review of Systems Constitutional: No Fever, No Chills Eyes: No Symptoms Ears, Nose, & Throat: No Symptoms Respiratory: No Cough, No Short Of Breath Cardiac: No Chest Pain, No Edema, No Syncope Abdominal/Gastrointestinal: No Abdominal Pain, No Nausea, No Vomiting, No Diarrhea Genitourinary Symptoms: No Dysuria Musculoskeletal: No Back Pain, No Neck Pain Skin: No Rash Neurological: No Dizziness, No Focal Weakness, No Sensory Changes Psychological: No Symptoms Endocrine: No Symptoms Hematologic/Lymphatic: No Symptoms Immunological/Allergic: No Symptoms Objective Exam General Appearance: no apparent distress, alert Neurologic Exam: alert, oriented x 3, cooperative, normal mood/affect, nml cerebellar function, sensation nml, No motor deficits Skin Exam: normal color, warm, dry Eye Exam: PERRL, EOMI, eyes nml inspection Ears, Nose, Throat Exam: normal ENT inspection, pharynx normal, moist mucous membranes Neck Exam: normal inspection, non-tender, supple, full range of motion Respiratory Exam: normal breath sounds, lungs clear, No respiratory distress Cardiovascular Exam: regular rate/rhythm, normal heart sounds Gastrointestinal/Abdomen Exam: soft, No tenderness, No mass Extremity Exam: normal inspection, normal range of motion Back Exam: normal inspection, normal range of motion, No CVA tenderness, No vertebral tenderness Male Genitalia Exam: deferred Rectal Exam: deferred OBJECTIVE DATA Vital Signs: Vital Signs - 24 hr Temp Pulse Resp BP Pulse Ox 05/31/18 07:36 98.8 F 76 20 191/85 96 05/30/18 21:42 97 05/30/18 19:23 98.2 F 76 18 165/85 97 05/30/18 15:16 98.9 F 75 20 140/67 94 L Pain Assessment - Last Documented Pain Intensity 10 Pain Scale Used 0-10 Pain Scale Intake and Output: Intake & Output 05/28/18 05/29/18 05/30/18 05/31/18 11:59 11:59 11:59 11:59 Intake Total 4363 Balance 4363 Weight 103.7 kg Lab Results: Accuchecks Date 05/30/18 Time 16:30 Accucheck Value: 349 Accucheck Value: 296 Accucheck Value: 272 Assessment/Plan (1) Abscess of upper back excluding scapular region Current Visit: Yes Status: Acute Onset Date: ~05/27/18 Code(s): L02.212 - CUTANEOUS ABSCESS OF BACK [ANY PART, EXCEPT BUTTOCK] (2) Cellulitis Current Visit: No Status: Acute Onset Date: ~05/27/18 Qualifiers: Site of cellulitis: other site Qualified Code(s): L03.818 - Cellulitis of other sites Code(s): L03.90 - CELLULITIS, UNSPECIFIED
[2018-05-31] MEDS ORDERED: Aplisol ID SCH (10:00)
[2018-05-31] MEDS: VANCOCIN 1 GM VIAL*** 1.5 GM in Sodium Chloride 0.9% 500 ML 500 ML IV SCH ×2 (10:31→23:09)
[2018-05-31] MEDS: Zestril 10 MG PO SCH (10:32)
[2018-05-31] MEDS: LEVOFLOXACIN 750MG/150ML D5W 750 MG/150 ML BAG IV SCH (21:22)
[2018-06-01] MEDS: Sodium Chloride 0.9% 1000 ML 1,000 ML IV SCH ×2 (07:54→20:04)
[2018-06-01] MEDS ORDERED: TROUGH DRUG LEVELS IJ ONE (09:30)
[2018-06-01] MEDS: Zestril 10 MG PO SCH (11:34)
[2018-06-01] MEDS: VANCOCIN 1 GM VIAL*** 1.5 GM in Sodium Chloride 0.9% 500 ML 500 ML IV SCH (11:34)
[2018-06-01] MEDS: NovoLOG Insulin SQ PRN ×3 (11:51→22:41)
[2018-06-01] MEDS: MOTRIN 400 MG PO PRN (17:17)
[2018-06-01] MEDS: LEVOFLOXACIN 750MG/150ML D5W 750 MG/150 ML BAG IV SCH (22:33)
[2018-06-02] MEDS: VANCOCIN 1 GM VIAL*** 1.5 GM in Sodium Chloride 0.9% 500 ML 500 ML IV SCH ×2 (00:13→09:59)
[2018-06-02] MEDS: NovoLOG Insulin SQ PRN ×2 (07:58→12:15)
[2018-06-02 08:26] VITALS: BP 180/86; PULSE 75; O2SAT 92
[2018-06-02] MEDS: Sodium Chloride 0.9% 1000 ML 1,000 ML IV SCH (08:58)
[2018-06-02] MEDS: Zestril 10 MG PO SCH (09:59)
[2018-06-02] MEDS: LEVOFLOXACIN 750MG/150ML D5W 750 MG/150 ML BAG IV SCH (13:30)
[2018-06-11] MEDS ORDERED: Aplisol ID SCH (10:00)
== END 2018-06-02 16:50 | disposition home or self-care (01) | DRG 603 ==
LOC: MED SURG 14:00
PROVIDERS: ADMIT General Practice; ATTEND General Practice
DX: L02.212 Cutaneous abscess of back [any part, except buttock and flank] (principal); L03.90 Cellulitis, unspecified
CPT/HCPCS: 36415; 80202; 82962; 94760; J1956; J2270; J3370; A9270-GY

== ENCOUNTER 2022-03-29 16:10 | Inpatient (IN) | payer MEDICARE ==
[2022-03-29] MEDS ORDERED: Sodium Chloride 0.9% 1000 ML 1,000 ML IV STA (16:46)
[2022-03-29] MEDS ORDERED: Merrem 1 GM in Sodium Chloride 100ML MINI-BAG PLUS 100 ML IV ONE (16:48)
[2022-03-29] MEDS ORDERED: Zofran 4 MG/2 ML VIAL IV ONE (16:49)
[2022-03-29] MEDS ORDERED: MORPHINE SULFATE 4 MG INJ IV ONE (16:49)
[2022-03-29] MEDS ORDERED: Zofran 4 MG/2 ML VIAL ONE (17:05)
[2022-03-29] MEDS ORDERED: MORPHINE SULFATE 4 MG INJ ONE (17:06)
[2022-03-29] MEDS ORDERED: Merrem IV ONE (17:06)
[2022-03-29] MEDS ORDERED: Sodium Chloride 0.9% 1000 ML 1,000 ML ONE (17:07)
[2022-03-29] MEDS ORDERED: Sodium Chloride 100ML MINI-BAG PLUS 100 ML IV ONE (17:07)
[2022-03-29 17:41] LABS: Absolute Neutrophil Ct (ANC) 15.21 x10^3/uL (1.4-6.9); Basophil (Absolute #) 0.07 x10^3/uL (0-0.4); Eosinophil % 0.4 % (0.00-5.0); Eosinophil (Absolute #) 0.08 x10^3/uL (0-0.5); Hematocrit 37.6 % (42-50); Lymphocyte (Absolute #) 1.06 x10^3/uL (1.0-4.6); Lymphocytes % 5.6 % (24.0-44.0); Mean Cell Volume 85.3 fL (78-100); Mean Corpuscular Hemoglobin 29.5 pg (26-32); Mean Corpuscular Hgb Concent. 34.6 g/dL (32-36); Mean Platelet Volume 9.5 fL (7.5-11.0); Monocyte (Absolute #) 1.91 x10^3/uL (0.0-1.3); Neutrophil % 79.9 % (36.0-66.0); Platelet Count 397 x10^3/uL (150-450); Red Blood Count 4.41 x10^6/uL (4.1-5.6); Red Cell Distribution Width 11.9 % (11.5-14.0)
[2022-03-29 17:43] LABS: VBG BASE EXCESS -0.7 (-2.0-2.0); VBG CARBOXYHEMOGLOBIN 2.8 % T HGB (0.0-6.9); VBG HCO3- 24.2 meq/L (22-28); VBG HEMOGLOBIN 13.6; VBG O2 SATURATION 69.4 (95-100); VBG POTASSIUM 4.2 (3.5-5.1); VBG pH 7.39 (7.32-7.42)
[2022-03-29 17:51] LABS: ALBUMIN 3.4 g/dL (3.5-5.0); ALKALINE PHOSPHATASE 241 U/L (38-126); ANION GAP 14.2 MEQ/L (5-15); BLOOD UREA NITROGEN 17 mg/dL (9-20); CHLORIDE 86 mmol/L (98-107); Calcium 8.1 mg/dL (8.4-10.2); Carbon Dioxide 25 mmol/L (22-30); Creatinine 1 0.93 mg/dL (0.66-1.25); EST GLOMERULAR FILTRATION RATE > 60.0 ML/MIN; Potassium 4.1 mmol/L (3.5-5.1); SGOT/AST 18 U/L (17-59); SGPT/ALT 16 U/L (0-50); SODIUM 121 mmol/L (137-145); Total Protein 7.4 g/dL (6.3-8.2)
[2022-03-29 17:58] LABS: Glucose 504 mg/dL (74-106)
[2022-03-29] MEDS ORDERED: HUMULIN R IV ONE (18:14)
[2022-03-29] MEDS ORDERED: VANCOMYCIN 2 GRAM/400 ML BAG 2 GM/400 ML PIGGYBACK IV ONE ×2 (18:14→18:21)
[2022-03-29 18:17] LABS: INFLUENZA A NEGATIVE (NEGATIVE); INFLUENZA B NEGATIVE (NEGATIVE); RESPIRATORY SYNCTIAL VIRUS NEGATIVE (Negative); SARS-CoV-2 Xpert Express NEGATIVE (NEGATIVE)
[2022-03-29] MEDS ORDERED: HUMULIN R ONE (18:21)
--- NOTE | 2022-03-29 19:20 | ERPHSYRPT ---
- History of Present Illness Time Seen by Provider: 03/29/22 16:45 Source: patient Exam Limitations: no limitations Patient Subjective Stated Complaint: pt states "I have an abscess and it popped 3 times." Triage Nursing Assessment: pt came into the er; pt is axo x4; c/o abscess to left lower buttock; pt states 04/30; wound is dark in appearance, hard, scaly; wound measures 14 cm x12 cm; purulent drainage present open area measuring 0.1 cm; hypertensive; afebrile Physician History: 51 years old male with poorly controlled diabetes mellitus, hypertension, history of multiple skin abscesses with MRSA presented in the ER with chief complaint of left buttock abscess for 1 week with gradual worsening with associated moderate to severe sharp pain and for the last couple of days also having drainage of pus mixed with blood which got worse prior to arrival. No active drainage at present. No fever or chills reported. Blood sugar is in 500s most of the time. Also having some nausea and occasional vomiting. Feel ing weak fatigued and tired. Timing/Duration: week(s) (1), constant, gradual onset, worse Quality: painful Severity: moderate, severe Location: extremities Possible Causes: no cause identified Associated Symptoms: change in skin texture, rash, swelling/mass/lumps, No difficulty breathing, No edema, No fever, No flushing, No headache, No hives, No jaundice, No malaise, No nasal congestion, No numbness, No pallor, No paresthesia, No petechiae, No sore throat Allergies/Adverse Reactions: Penicillins Allergy (Mild, Verified 03/29/22 16:12) Rash Home Medications: Insulin NPH Human Isophane [Novolin N] 20 units SQ BID 03/29/22 [History] Hx Tetanus, Diphtheria Vaccination/Date Given: Yes Hx Influenza Vaccination/Date Given: No Hx Pneumococcal Vaccination/Date Given: No Travel Risk - International Travel Have you traveled outside of the country in past 3 weeks: No - Coronavirus Screening Are you exhibiting any of the following symptoms?: No Close contact with a COVID-19 positive Pt in past 14-21 Days: No - Vaccine Status Have you recieved a Covid-19 vaccination: Yes Lands Resource Manager: [employer] - Vaccination Dates Date of 2cond Vaccination (if applicable): 2020 - Review of Systems Constitutional: Fatigue, Weakness Eyes: No Symptoms Ears, Nose, & Throat: No Symptoms Respiratory: No Symptoms Cardiac: No Symptoms Abdominal/Gastrointestinal: No Symptoms Genitourinary Symptoms: No Symptoms Skin: Cellulitis Neurological: Sensory Changes Psychological: No Symptoms Endocrine: No Hair Changes Hematologic/Lymphatic: No Symptoms Immunological/Allergic: No Symptoms - Past Medical History Pertinent Past Medical History: Yes Neurological History: No Pertinent History ENT History: Other Cardiac History: Hypertension Respiratory History: No Pertinent History Endocrine Medical History: Diabetes Type II Musculoskeletal History: No Pertinent History GI Medical History: GERD History: No Pertinent History Psycho-Social History: No Pertinent History Male Reproductive Disorders: No Pertinent History Other Medical History: 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 Amputation of toes of right foot - Social History Smoking Status: Never smoker Exposure to second hand smoke: Yes Drug Use: none Patient Lives Alone: No - Nursing Vital Signs Nursing Vital Signs: Initial Vital Signs Temperature 98 F 03/29/22 16:12 Pulse Rate 105 H 03/29/22 16:12 Respiratory Rate 18 03/29/22 16:12 Blood Pressure 154/74 03/29/22 16:12 O2 Sat by Pulse Oximetry 96 03/29/22 16:12 Pain Scale Pain Intensity 4 - Physical Exam General Appearance: no apparent distress, alert Eye Exam: PERRL/EOMI Ears, Nose, Throat Exam: normal ENT inspection, pharynx normal Neck Exam: normal inspection, non-tender, supple, full range of motion Respiratory Exam: normal breath sounds, lungs clear Cardiovascular Exam: normal heart sounds, tachycardia Gastrointestinal/Abdomen Exam: soft, normal bowel sounds, No tenderness Back Exam: normal inspection, normal range of motion Extremity Exam: inflammation, swelling (10 x 10 cm left lower buttock swelling with central area of darkening and an open head with minimal discharge on pressure along sides. Induration with increased temperature and tender to touch. Firm consistency, no fluctuation.), tenderness, other (Distal foot amputation) Neurologic Exam: alert, oriented x 3, cooperative, business intelligence consultant II-XII nml as tested Skin Exam: normal color Lymphatic Exam: inguinal node tender (L) SpO2 Interpretation: normal SpO2: 95 O2 Delivery: Room Air Ordered Tests: Active Orders 24 hr Category Date Time Status Bedrest ROUTINE Activity 03/29/22 20:10 Active Up With Assistance ROUTINE Activity 03/29/22 20:10 Active Code Status Order ROUTINE Care 03/29/22 20:10 Active Fall Protocol Q1H Care 03/29/22 20:10 Active IV Care Q6H Care 03/29/22 20:10 Active IV Insertion STAT Care 03/29/22 16:46 Completed NPO (ED) STAT Care 03/29/22 16:46 Completed POCT Glucose Check ACHS Care 03/29/22 20:[address] in Observation ROUTINE Care 03/29/22 20:10 Active Rg Frank, Apply ROUTINE Care 03/29/22 20:10 Active Weight,Daily 0600 Care 03/29/22 20:10 Active Consistent Carbohydrate Diet 1800 Calorie Diet 03/30/22 Breakfast Active PELVIS WITHOUT CONTRAST [CT] Stat Exams 03/29/22 16:48 Taken BLOOD CULTURE Stat Lab 03/29/22 17:20 Received CBC W DIFF AM.LAB Lab 03/30/22 04:00 Ordered CBC W DIFF Stat Lab 03/29/22 17:05 Completed CMP AM.LAB Lab 03/30/22 04:00 Ordered CMP Stat Lab 03/29/22 17:05 Completed Lactic Acid Stat Lab 03/29/22 16:46 Completed Lactic Acid Stat Lab 03/29/22 19:46 Received UA W/RFX CULTURE Stat Lab 03/29/22 Ordered VENOUS BLOOD GAS Urgent Lab 03/29/22 16:47 Completed Transfer Order Routine Transfer 03/29/22 Completed Medication Summary Generic Name Dose Route Start Last Admin Trade Name Freq PRN Reason Stop Dose Admin Acetaminophen 650 mg 03/29/22 20:10 Acetaminophen 325 Mg Tablet PO 04/28/22 20:09 Q4H PRN PRN PAIN AND/OR FEVER Albuterol/Ipratropium 3 ml 03/29/22 20:10 Ipratropium/Albuterol Sulfate 3 Ml Ampul.Neb IH 04/28/22 20:09 Q4HPRN PRN SHORTNESS OF BREATH/WHEEZING Vancomycin HCl 2 gm in 400 mls @ 133.333 mls/hr 03/29/22 18:14 03/29/22 18:24 Vancomycin 2 Gram/400 Ml Bag IV 03/29/22 21:13 133.33 mls/hr STAT ONE 133.33 mls/hr Administration Sodium Chloride 1,000 mls @ 100 mls/hr 03/29/22 20:10 Sodium Chloride 0.9% 1000 Ml IV 04/28/22 20:09 .Q10H LEO Meropenem 1 gm/ Sodium 100 mls @ 200 mls/hr 03/30/22 01:00 Chloride IV 04/02/22 00:59 Q8HT LEO Vancomycin HCl 1 gm/ Sodium 250 mls @ 125 mls/hr 03/30/22 06:00 Chloride IV 04/29/22 05:59 Q12H [facility] Insulin Human Lispro 0 unit 03/29/22 20:10 Insulin Lispro 1 Unit SQ 04/28/22 20:09 UD PRN HYPERGLYCEMIA Morphine Sulfate 4 mg 03/29/22 20:10 Morphine Sulfate 4 Mg/Ml Injection IV 04/03/22 20:09 Q4H PRN PRN PAIN Ondansetron HCl 4 mg 03/29/22 20:10 Ondansetron Hcl 4 Mg/2 Ml Vial IV 04/28/22 20:09 Q6H PRN PRN NAUSEA/VOMITING Pantoprazole Sodium 40 mg 03/30/22 10:00 Pantoprazole 40 Mg Vial IV 04/29/22 09:59 Q24H10 [facility] Discontinued Medications Generic Name Dose Route Start Last Admin Trade Name Freq PRN Reason Stop Dose Admin Meropenem 1 gm/ Sodium 100 mls @ 200 mls/hr 03/29/22 16:48 03/29/22 17:14 Chloride IV 03/29/22 17:17 200 mls/hr STAT ONE Administration Sodium Chloride 1,000 mls @ 999 mls/hr 03/29/22 16:46 03/29/22 18:25 Sodium Chloride 0.9% 1000 Ml IV 03/29/22 17:46 Infused .Q1H1M STA Infusion Sodium Chloride Confirm 03/29/22 17:07 Sodium Chloride 100ml Mini-Bag Plus Administered 03/29/22 17:08 Dose 100 mls @ ud IV .STK-MED ONE Sodium Chloride Confirm 03/29/22 17:07 Sodium Chloride 0.9% 1000 Ml Administered 03/29/22 17:08 Dose 1,000 mls @ ud .ROUTE .STK-MED ONE Vancomycin HCl Confirm 03/29/22 18:21 Vancomycin 2 Gram/400 Ml Bag Administered 03/29/22 18:22 Dose 2 gm in 400 mls @ ud IV .STK-MED ONE Vancomycin HCl 1 gm/ Sodium 250 mls @ 125 mls/hr 03/29/22 20:10 03/29/22 20:37 Chloride IV 04/28/22 20:09 Not Given Q12H LEO Meropenem 1 gm/ Sodium 100 mls @ 200 mls/hr 03/29/22 22:00 Chloride IV 04/01/22 21:59 Q8HT LEO Insulin Human Regular 15 unit 03/29/22 18:14 03/29/22 18:23 Insulin Regular, Human 1 Unit IV 03/29/22 18:15 15 unit STAT ONE Administration Insulin Human Regular Confirm 03/29/22 18:21 Insulin Regular, Human 1 Unit Administered 03/29/22 18:22 Dose 15 unit .ROUTE .STK-MED ONE Meropenem Confirm 03/29/22 17:06 Meropenem 1 Gm Vial Administered 03/29/22 17:07 Dose 1 gm IV .STK-MED ONE Morphine Sulfate 4 mg 03/29/22 16:49 03/29/22 17:09 Morphine Sulfate 4 Mg/Ml Injection IV 03/29/22 16:50 4 mg STAT ONE Administration Morphine Sulfate Confirm 03/29/22 17:06 Morphine Sulfate 4 Mg/Ml Injection Administered 03/29/22 17:07 Dose 4 mg .ROUTE .STK-MED ONE Ondansetron HCl 4 mg 03/29/22 16:49 03/29/22 17:09 Ondansetron Hcl 4 Mg/2 Ml Vial IV 03/29/22 16:50 4 mg STAT ONE Administration Ondansetron HCl Confirm 03/29/22 17:05 Ondansetron Hcl 4 Mg/2 Ml Vial Administered 03/29/22 17:06 Dose 4 mg .ROUTE .STK-MED ONE Lab/Rad Data: Laboratory Result Diagrams 03/29/22 17:05 03/29/22 17:05 Laboratory Results 03/29/22 03/29/22 03/29/22 Range/Units 17:30 17:05 17:05 WBC 19.0 H (4.0-10.5) x10^3/uL RBC 4.41 (4.1-5.6) x10^6/uL Hgb 13.0 (12.5-18.0) g/dL Hct 37.6 L (42-50) % MCV 85.3 (78-100) fL MCH 29.5 (26-32) pg MCHC 34.6 (32-36) g/dL RDW 11.9 (11.5-14.0) % Plt Count 397 (150-450) x10^3/uL MPV 9.5 (7.5-11.0) fL Gran % 79.9 H (36.0-66.0) % Immature Gran % (Auto) 3.7 H (0.00-0.4) % Nucleat RBC Rel Count 0.0 (0.00-0.1) % Eos # (Auto) 0.08 (0-0.5) x10^3/uL Immature Gran # (Auto) 0.70 H (0.00-0.03) x10^3u/L Absolute Lymphs (auto) 1.06 (1.0-4.6) x10^3/uL Absolute Monos (auto) 1.91 H (0.0-1.3) x10^3/uL Absolute Nucleated RBC 0.00 (0.00-0.01) x10^3u/L Lymphocytes % 5.6 L (24.0-44.0) % Monocytes % 10.0 (0.0-12.0) % Eosinophils % 0.4 (0.00-5.0) % Basophils % 0.4 (0.0-0.4) % Absolute Granulocytes 15.21 H (1.4-6.9) x10^3/uL Basophils # 0.07 (0-0.4) x10^3/uL pO2/FiO2 Ratio % VBG pH (7.32-7.42) VBG pCO2 at Pat Temp (42-55) mm/Hg VBG pO2 at Pat Temp (25-40) mm/Hg VBG HCO3 (22-28) meq/L VBG O2 Sat ([place]) (95-100) VBG Base Excess (-2.0-2.0) VBG Hemoglobin VBG Carboxyhemoglobin (0.0-6.9) % T HGB POC Potassium (3.5-5.1) Sodium 121 L (137-145) mmol/L Potassium 4.1 (3.5-5.1) mmol/L Chloride 86 L (98-107) mmol/L Carbon Dioxide 25 (22-30) mmol/L Anion Gap 14.2 (5-15) MEQ/L BUN 17 (9-20) mg/dL Creatinine 0.93 (0.66-1.25) mg/dL Estimated GFR > 60.0 ML/MIN Glucose 504 H* (74-106) mg/dL Lactic Acid (0.4-2.0) Calcium 8.1 L (8.4-10.2) mg/dL Total Bilirubin 0.60 (0.2-1.3) mg/dL AST 18 (17-59) U/L ALT 16 (0-50) U/L Alkaline Phosphatase 241 H (38-126) U/L Serum Total Protein 7.4 (6.3-8.2) g/dL Albumin 3.4 L (3.5-5.0) g/dL Influenza Type A Ag NEGATIVE (NEGATIVE) Influenza Type B Ag NEGATIVE (NEGATIVE) RSV (PCR) NEGATIVE (Negative) SARS-CoV-2 (PCR) NEGATIVE (NEGATIVE) Slides for Path Review YES 03/29/22 03/29/22 Range/Units 16:47 16:46 WBC (4.0-10.5) x10^3/uL RBC (4.1-5.6) x10^6/uL Hgb (12.5-18.0) g/dL Hct (42-50) % MCV (78-100) fL MCH (26-32) pg MCHC (32-36) g/dL RDW (11.5-14.0) % Plt Count (150-450) x10^3/uL MPV (7.5-11.0) fL Gran % (36.0-66.0) % Immature Gran % (Auto) (0.00-0.4) % Nucleat RBC Rel Count (0.00-0.1) % Eos # (Auto) (0-0.5) x10^3/uL Immature Gran # (Auto) (0.00-0.03) x10^3u/L Absolute Lymphs (auto) (1.0-4.6) x10^3/uL Absolute Monos (auto) (0.0-1.3) x10^3/uL Absolute Nucleated RBC (0.00-0.01) x10^3u/L Lymphocytes % (24.0-44.0) % Monocytes % (0.0-12.0) % Eosinophils % (0.00-5.0) % Basophils % (0.0-0.4) % Absolute Granulocytes (1.4-6.9) x10^3/uL Basophils # (0-0.4) x10^3/uL pO2/FiO2 Ratio 21.0 % VBG pH 7.39 (7.32-7.42) VBG pCO2 at Pat Temp 40 L (42-55) mm/Hg VBG pO2 at Pat Temp 38 (25-40) mm/Hg VBG HCO3 24.2 (22-28) meq/L VBG O2 Sat ([place]) 69.4 L (95-100) VBG Base Excess -0.7 (-2.0-2.0) VBG Hemoglobin 13.6 VBG Carboxyhemoglobin 2.8 (0.0-6.9) % T HGB POC Potassium 4.2 (3.5-5.1) Sodium (137-145) mmol/L Potassium (3.5-5.1) mmol/L Chloride (98-107) mmol/L Carbon Dioxide (22-30) mmol/L Anion Gap (5-15) MEQ/L BUN (9-20) mg/dL Creatinine (0.66-1.25) mg/dL Estimated GFR ML/MIN Glucose (74-106) mg/dL Lactic Acid 2.3 H (0.4-2.0) Calcium (8.4-10.2) mg/dL Total Bilirubin (0.2-1.3) mg/dL AST (17-59) U/L ALT (0-50) U/L Alkaline Phosphatase (38-126) U/L Serum Total Protein (6.3-8.2) g/dL Albumin (3.5-5.0) g/dL Influenza Type A Ag (NEGATIVE) Influenza Type B Ag (NEGATIVE) RSV (PCR) (Negative) SARS-CoV-2 (PCR) (NEGATIVE) Slides for Path Review - Progress Progress: pain not gone completely Progress Note: 03/29/22 19:16 Is given fluid bolus along with symptomatic treatment for pain. Has a white count of 19, lactate of 2.3 with normal renal functions but has a blood sugar of 504 with normal pH and bicarb. Given IV insulin and started on broad-spectrum antibiotic meropenem and vancomycin. I have obtained CT which did not show obvious pus collection but induration/cellulitis. Has corrected sodium of 131. Discussed with Dr. Luo, patient will be admitted to the hospital for service and if needed General surgery will be consulted later. Plan discussed with patient and family who understand and agree with it. Discussed with : Dylan Will see patient in: hospital (observation) Counseled pt/family regarding: lab results, diagnosis, rad results - Departure Departure Disposition: Observation Clinical Impression: Left buttock abscess, Hyperglycemia, Cellulitis of buttock, left Condition: Stable Critical Care Time: No
[2022-03-29] MEDS ORDERED: DUONEB 0.5-3 MG/3 ml Neb IH PRN (20:10)
[2022-03-29] MEDS ORDERED: VANCOCIN INJECTION*** 1 GM in Sodium Chloride 0.9% 250 ML 250 ML IV SCH (20:10)
[2022-03-29] MEDS ORDERED: TYLENOL 325 MG PO PRN (20:10)
[2022-03-29] MEDS ORDERED: Zofran 4 MG/2 ML VIAL IV PRN (20:10)
[2022-03-29 20:53] LABS: Slide Review 1 YES
[2022-03-29] MEDS: Sodium Chloride 0.9% 1000 ML 1,000 ML IV SCH (21:34)
[2022-03-29] MEDS: HUMALOG SQ PRN (21:57)
[2022-03-29] MEDS ORDERED: Merrem 1 GM in Sodium Chloride 100ML MINI-BAG PLUS 100 ML IV SCH (22:00)
[2022-03-30] MEDS ORDERED: Sodium Chloride 100ML MINI-BAG PLUS 100 ML IV ONE (00:39)
[2022-03-30] MEDS ORDERED: Merrem IV ONE (00:39)
[2022-03-30] MEDS: Merrem 1 GM in Sodium Chloride 100ML MINI-BAG PLUS 100 ML IV SCH ×3 (00:52→16:02)
[2022-03-30 03:57] LABS: Bacteria FEW /HPF (NEGATIVE); Mucus SLIGHT /HPF (NEGATIVE)
[2022-03-30 03:58] LABS: Appearance SLIGHTLY CLOUDY (CLEAR); Bilirubin NEGATIVE (NEGATIVE); Glucose 500 mg/dL (NEGATIVE); Ketones SMALL-15 (NEGATIVE)
[2022-03-30 03:59] LABS: Dipstick done @ ? MAIN LAB; Nitrite NEGATIVE (NEGATIVE); Protein,Urine Dip 100 (Negative); RBC TRACE-LYSED Ery/ul (0-5); Urine Cultured Indicated? YES; Urobilinogen 0.2 mg/dL (0-1)
[2022-03-30] MEDS ORDERED: VANCOCIN INJECTION*** 1 GM in Sodium Chloride 0.9% 250 ML 250 ML IV SCH (06:00)
[2022-03-30 06:03] LABS: Absolute Neutrophil Ct (ANC) 14.95 x10^3/uL (1.4-6.9); Basophil (Absolute #) 0.08 x10^3/uL (0-0.4); Eosinophil % 0.7 % (0.00-5.0); Eosinophil (Absolute #) 0.13 x10^3/uL (0-0.5); Hematocrit 34.3 % (42-50); Hemoglobin 11.3 g/dL (12.5-18.0); Lymphocytes % 5.7 % (24.0-44.0); Mean Cell Volume 86.2 fL (78-100); Mean Corpuscular Hemoglobin 28.4 pg (26-32); Mean Corpuscular Hgb Concent. 32.9 g/dL (32-36); Mean Platelet Volume 9.7 fL (7.5-11.0); Monocyte (Absolute #) 2.48 x10^3/uL (0.0-1.3); Monocytes % 12.9 % (0.0-12.0); Neutrophil % 77.6 % (36.0-66.0); Platelet Count 365 x10^3/uL (150-450); Red Blood Count 3.98 x10^6/uL (4.1-5.6); White Blood Count 19.3 x10^3/uL (4.0-10.5)
[2022-03-30] MEDS ORDERED: VANCOMYCIN 1 GRAM/200 ML BAG 1 GM/200 ML PIGGYBACK IV ONE (06:03)
[2022-03-30 06:35] LABS: ALKALINE PHOSPHATASE 186 U/L (38-126); ANION GAP 13.1 MEQ/L (5-15); BLOOD UREA NITROGEN 15 mg/dL (9-20); CHLORIDE 92 mmol/L (98-107); Calcium 7.6 mg/dL (8.4-10.2); Carbon Dioxide 22 mmol/L (22-30); Creatinine 1 0.92 mg/dL (0.66-1.25); EST GLOMERULAR FILTRATION RATE > 60.0 ML/MIN; Glucose 250 mg/dL (74-106); Potassium 3.8 mmol/L (3.5-5.1); SGOT/AST 12 U/L (17-59); SGPT/ALT 11 U/L (0-50); SODIUM 123 mmol/L (137-145); Total Protein 6.6 g/dL (6.3-8.2)
[2022-03-30 08:20] LABS: Slide Review 1 YES
[2022-03-30] MEDS: MORPHINE SULFATE 4 MG INJ IV PRN ×2 (08:27→16:02)
[2022-03-30] MEDS: Sodium Chloride 0.9% 1000 ML 1,000 ML IV SCH ×2 (08:28→21:35)
--- NOTE | 2022-03-30 08:47 | XRAY ---
Indication: Left buttock abscess. Multiple contiguous axial images obtained through the pelvis without contrast. Comparison: March 28, 2018 Patient's large body habitus does not completely include buttocks. There is new incomplete visualization of large left gluteal cutaneous/subcutaneous induration at least 9 x 11 cm in greatest axial dimension favoring cellulitis. No obvious walled off fluid collection or subcutaneous emphysema. Osseous structures intact without suspicious bony lesions or osseous destructive process. Visualized pelvic contents demonstrates new moderate diffuse fecal stasis. Urinary bladder is also markedly distended concerning for outlet obstruction versus neurogenic bladder. Again mild aortoiliac calcifications. No pelvic free fluid/air. Impression: 1. Incompletely visualized large focus of left gluteal cellulitis. No obvious abscess/emphysema or underlying osseous destructive process. 2. Distended urinary bladder. Rule out outlet obstruction versus neurogenic bladder. 3. Incidental fecal stasis.
[2022-03-30] MEDS: Novolin N SQ SCH ×2 (08:48→19:18)
[2022-03-30] MEDS ORDERED: TROUGH DRUG LEVELS IJ ONE (09:30)
[2022-03-30] MEDS: VANCOMYCIN 1.5 GRAM/300 ML BAG 1.5 GM/300 ML PIGGYBACK IV SCH ×2 (09:47→21:43)
[2022-03-30] MEDS: PROTONIX 40 MG IV IV SCH (09:49)
[2022-03-30] MEDS: HUMALOG SQ PRN ×2 (12:24→21:36)
[2022-03-30] MEDS ORDERED: Reglan 10 MG/2 ML ONE (16:46)
[2022-03-30] MEDS ORDERED: Pepcid 20 MG VIAL IV ONE (16:46)
[2022-03-30] MEDS ORDERED: Reglan 10 MG/2 ML IV ONE (16:49)
[2022-03-30] MEDS ORDERED: TORAdol 30 mg Injection ONE (17:00)
[2022-03-30] MEDS ORDERED: DIPRIVAN 200 MG/20 ML IV ONE (17:00)
[2022-03-30] MEDS ORDERED: Versed 2 MG/2 ML Injection ONE (17:00)
[2022-03-30] MEDS ORDERED: DEXMEDETOMIDINE 80 MCG/20ML-NS IV ONE (17:00)
[2022-03-30] MEDS ORDERED: Quelicin Fliptop 200 MG/10 ML ONE (17:00)
[2022-03-30] MEDS ORDERED: Xylocaine-Mpf 2% 5 Ml Vial ONE (17:00)
[2022-03-30] MEDS ORDERED: SUBLIMAZE 100 MCG/2 ML ONE (17:00)
[2022-03-30] MEDS ORDERED: Zofran 4 MG/2 ML VIAL ONE (17:00)
[2022-03-30] MEDS ORDERED: Pre-Attached Lta Kit TP ONE (17:32)
[2022-03-30] MEDS ORDERED: Sodium Chloride 0.9% 1000 ML 1,000 ML ONE (17:46)
[2022-03-30] MEDS ORDERED: PHENYLEPHRINE HCL ONE (17:48)
[2022-03-30] MEDS ORDERED: Ephedrine Sulfate 50 MG/ML ONE (17:48)
[2022-03-31] MEDS: Merrem 1 GM in Sodium Chloride 100ML MINI-BAG PLUS 100 ML IV SCH ×4 (01:39→18:13)
[2022-03-31 06:07] LABS: Hematocrit 32.9 % (42-50); Hemoglobin 10.4 g/dL (12.5-18.0); Mean Cell Volume 89.4 fL (78-100); Mean Corpuscular Hemoglobin 28.3 pg (26-32); Mean Corpuscular Hgb Concent. 31.6 g/dL (32-36); Mean Platelet Volume 9.8 fL (7.5-11.0); Platelet Count 334 x10^3/uL (150-450); Red Blood Count 3.68 x10^6/uL (4.1-5.6); Red Cell Distribution Width 12.1 % (11.5-14.0); White Blood Count 16.1 x10^3/uL (4.0-10.5)
[2022-03-31 07:07] LABS: BLOOD UREA NITROGEN 17 mg/dL (9-20); CHLORIDE 95 mmol/L (98-107); Calcium 7.3 mg/dL (8.4-10.2); Carbon Dioxide 23 mmol/L (22-30); Creatinine 1 0.89 mg/dL (0.66-1.25); EST GLOMERULAR FILTRATION RATE > 60.0 ML/MIN; Glucose 275 mg/dL (74-106); Potassium 3.8 mmol/L (3.5-5.1); SODIUM 125 mmol/L (137-145)
[2022-03-31] MEDS ORDERED: TROUGH DRUG LEVELS IJ ONE (09:30)
[2022-03-31] MEDS: Novolin N SQ SCH ×2 (09:58→18:16)
[2022-03-31] MEDS: PROTONIX 40 MG IV IV SCH (09:58)
[2022-03-31] MEDS: MORPHINE SULFATE 4 MG INJ IV PRN ×2 (09:58→17:49)
[2022-03-31] MEDS: VANCOMYCIN 1.5 GRAM/300 ML BAG 1.5 GM/300 ML PIGGYBACK IV SCH (11:58)
[2022-03-31] MEDS: Sodium Chloride 0.9% 1000 ML 1,000 ML IV SCH (15:48)
[2022-03-31] MEDS ORDERED: Pepcid 20 MG VIAL IV ONE (16:47)
--- NOTE | 2022-03-31 17:33 | PCM.NOTE ---
Date and Time: 03/31/22 1728 Subjective Assessment: Pt says his "butt hurts" - lots of drainage present in the bed. Had I&D last night. On morphine 4mg IV q4h. - Review of Systems Constitutional: No Fever (Tmax 100.2.) Skin: Other (abscess s/p I&D) Objective Exam General Appearance: mild distress, alert (sitting in chair, looks uncomfortable.) Neurologic Exam: oriented x 3, cooperative Skin Exam: other (L posterior proximal thigh with approx 12cm linear wound; copious amounts of serosanguinous drainage, with packing appearing to extrude from the wound. no pus. Drainage present on floor and has soaked the bed.) Wound Assessment: Skin/Wound Assessment Wound/Incision Assessment Start: 03/29/22 20:00 Text: Status: Active Freq: Q6H Protocol: Document 03/31/22 08:00 AR (Rec: 03/31/22 11:32 AR [id number]) Wound/Incision Assessment Left Upper Buttock Wound Assessment Shift Assessment Wound Type Incision Wound Stage Non Pressure Wound Length (cm) (cm) 14 Width (cm) (cm) 12 Surrounding Tissue Dark Red,Purple Secondary Dressing Absorbant Pad Wound Photo Photo Taken Yes Date: 03/30/22 Time: 01:00 Eye Exam: eyes nml inspection Ears, Nose, Throat Exam: moist mucous membranes Neck Exam: normal inspection Respiratory Exam: normal breath sounds, lungs clear, No crackles/rales, No rhonchi, No wheezing Cardiovascular Exam: regular rate/rhythm, normal heart sounds, No murmur Gastrointestinal/Abdomen Exam: soft, normal bowel sounds, No tenderness, No distention, No mass, No guarding, No rebound Extremity Exam: normal inspection, No pedal edema, No swelling Back Exam: No normal inspection (superior R back with well healed scarred area approx 3x4 cm.), No rash OBJECTIVE DATA Vital Signs: Vital Signs - 24 hr Temp Pulse Resp BP Pulse Ox 03/31/22 16:00 98.4 F 87 16 155/88 93 L 03/31/22 12:00 98.6 F 89 18 141/64 90 L 03/31/22 09:15 95 03/31/22 07:30 98.7 F 95 H 16 119/57 90 L 03/31/22 04:52 99.6 F 03/31/22 04:01 100.2 F 91 H 20 133/61 95 03/31/22 03:27 97.9 F 84 20 113/56 97 03/30/22 22:20 97.9 F 84 20 113/56 97 03/30/22 21:20 97.6 F 82 20 102/57 97 03/30/22 20:20 97.1 F 78 18 97/51 98 03/30/22 19:50 97.7 F 78 16 105/58 97 03/30/22 19:40 97 03/30/22 19:20 97.1 F 79 17 94/59 96 03/30/22 19:00 6.4 F 92 H 16 89/51 92 L Pain Assessment - Last Documented Pain Intensity 6 Pain Scale Used 0-10 Pain Scale Intake and Output: Intake & Output 03/29/22 03/30/22 03/31/22 04/01/22 11:59 11:59 11:59 11:59 Intake Total 2678 4287 2442 Output Total 1770 2200 500 Balance 896 2087 1942 Weight 103.782 kg 108.9 kg Lab Results: Lab Results-Last 24 Hours 03/30/22 03/30/22 03/31/22 Range/Units 18:23 21:00 04:45 WBC 16.1 H (4.0-10.5) x10^3/uL RBC 3.68 L (4.1-5.6) x10^6/uL Hgb 10.4 L (12.5-18.0) g/dL Hct 32.9 L (42-50) % MCV 89.4 (78-100) fL MCH 28.3 (26-32) pg MCHC 31.6 L (32-36) g/dL RDW 12.1 (11.5-14.0) % Plt Count 334 (150-450) x10^3/uL MPV 9.8 (7.5-11.0) fL Sodium (137-145) mmol/L Potassium (3.5-5.1) mmol/L Chloride (98-107) mmol/L Carbon Dioxide (22-30) mmol/L Anion Gap (5-15) MEQ/L BUN (9-20) mg/dL Creatinine (0.66-1.25) mg/dL Estimated GFR ML/MIN Glucose (74-106) mg/dL POC Glucometer 230 H 259 H (74 to 106) mg/dL Calcium (8.4-10.2) mg/dL Vancomycin Trough (10-20) ug/mL 03/31/22 03/31/22 03/31/22 Range/Units 04:45 07:11 09:35 WBC (4.0-10.5) x10^3/uL RBC (4.1-5.6) x10^6/uL Hgb (12.5-18.0) g/dL Hct (42-50) % MCV (78-100) fL MCH (26-32) pg MCHC (32-36) g/dL RDW (11.5-14.0) % Plt Count (150-450) x10^3/uL MPV (7.5-11.0) fL Sodium 125 L (137-145) mmol/L Potassium 3.8 (3.5-5.1) mmol/L Chloride 95 L (98-107) mmol/L Carbon Dioxide 23 (22-30) mmol/L Anion Gap 11.0 (5-15) MEQ/L BUN 17 (9-20) mg/dL Creatinine 0.89 (0.66-1.25) mg/dL Estimated GFR > 60.0 ML/MIN Glucose 275 H (74-106) mg/dL POC Glucometer 242 H (74 to 106) mg/dL Calcium 7.3 L (8.4-10.2) mg/dL Vancomycin Trough 11.19 (10-20) ug/mL 03/31/22 03/31/22 Range/Units 11:54 16:33 WBC (4.0-10.5) x10^3/uL RBC (4.1-5.6) x10^6/uL Hgb (12.5-18.0) g/dL Hct (42-50) % MCV (78-100) fL MCH (26-32) pg MCHC (32-36) g/dL RDW (11.5-14.0) % Plt Count (150-450) x10^3/uL MPV (7.5-11.0) fL Sodium (137-145) mmol/L Potassium (3.5-5.1) mmol/L Chloride (98-107) mmol/L Carbon Dioxide (22-30) mmol/L Anion Gap (5-15) MEQ/L BUN (9-20) mg/dL Creatinine (0.66-1.25) mg/dL Estimated GFR ML/MIN Glucose (74-106) mg/dL POC Glucometer 287 H 390 H (74 to 106) mg/dL Calcium (8.4-10.2) mg/dL Vancomycin Trough (10-20) ug/mL Radiology Exams: Radiology Procedures Category Date Time Status PELVIS WITHOUT CONTRAST [CT] Stat Exams 03/29/22 16:48 Completed Assessment/Plan (1) Left buttock abscess Current Visit: Yes Status: Acute Assessment & Plan: I&D done yesterday, thank you. On meropenem and vancomycin, day #2. Had elevated temp just short of a fever in the past 24h. Increased pain med - started po with morphine to cover severe pain. Blood cx prelim neg. Wound cx pending. Code(s): L02.31 - CUTANEOUS ABSCESS OF BUTTOCK (2) Hyperglycemia Current Visit: Yes Status: Chronic Assessment & Plan: will attempt to improve glycemic control. Code(s): R73.9 - HYPERGLYCEMIA, UNSPECIFIED (3) Poorly controlled diabetes mellitus Current Visit: Yes Status: Chronic Code(s): E11.65 - TYPE 2 DIABETES MELLITUS WITH HYPERGLYCEMIA (4) HTN (hypertension) Current Visit: Yes Status: Chronic Qualifiers: Hypertension type: primary hypertension Qualified Code(s): I10 - Essential (primary) hypertension Code(s): I10 - ESSENTIAL (PRIMARY) HYPERTENSION (5) History of MRSA infection Current Visit: Yes Status: Resolved Assessment & Plan: on contact precautions. Code(s): Z86.14 - PERSONAL HISTORY OF METHICILLIN RESIS STAPH INFECTION
[2022-03-31] MEDS: HUMALOG SQ PRN ×2 (17:52→21:25)
[2022-03-31] MEDS: VANCOMYCIN 1 GRAM/200 ML BAG 1 GM/200 ML PIGGYBACK IV SCH (19:01)
[2022-03-31] MEDS: HYDROCODONE-ACETAMIN 10-325 MG PO PRN (21:24)
[2022-03-31] MEDS ORDERED: Lantus Insulin SQ SCH (22:00)
[2022-04-01] MEDS: Merrem 1 GM in Sodium Chloride 100ML MINI-BAG PLUS 100 ML IV SCH ×3 (01:01→18:11)
[2022-04-01] MEDS: Sodium Chloride 0.9% 1000 ML 1,000 ML IV SCH ×3 (01:01→20:38)
[2022-04-01] MEDS: VANCOMYCIN 1 GRAM/200 ML BAG 1 GM/200 ML PIGGYBACK IV SCH ×3 (01:41→18:53)
[2022-04-01 05:59] LABS: Absolute Neutrophil Ct (ANC) 9.64 x10^3/uL (1.4-6.9); Basophil (Absolute #) 0.11 x10^3/uL (0-0.4); Eosinophil (Absolute #) 0.27 x10^3/uL (0-0.5); Hemoglobin 10.4 g/dL (12.5-18.0); Mean Cell Volume 86.6 fL (78-100); Mean Corpuscular Hemoglobin 29.1 pg (26-32); Mean Corpuscular Hgb Concent. 33.5 g/dL (32-36); Mean Platelet Volume 9.5 fL (7.5-11.0); Monocyte (Absolute #) 1.55 x10^3/uL (0.0-1.3); Monocytes % 11.3 % (0.0-12.0); Neutrophil % 70.4 % (36.0-66.0); Platelet Count 411 x10^3/uL (150-450); Red Blood Count 3.58 x10^6/uL (4.1-5.6); Red Cell Distribution Width 12.2 % (11.5-14.0); White Blood Count 13.7 x10^3/uL (4.0-10.5)
[2022-04-01 06:34] LABS: ANION GAP 8.6 MEQ/L (5-15); BLOOD UREA NITROGEN 13 mg/dL (9-20); CHLORIDE 98 mmol/L (98-107); Calcium 7.5 mg/dL (8.4-10.2); Carbon Dioxide 28 mmol/L (22-30); EST GLOMERULAR FILTRATION RATE > 60.0 ML/MIN; Glucose 140 mg/dL (74-106); SODIUM 131 mmol/L (137-145)
[2022-04-01 06:41] LABS: Slide Review 1 YES
[2022-04-01] MEDS ORDERED: TROUGH DRUG LEVELS IJ ONE (09:30)
[2022-04-01] MEDS: PROTONIX 40 MG IV IV SCH (09:53)
[2022-04-01] MEDS: MORPHINE SULFATE 4 MG INJ IV PRN (11:55)
[2022-04-01] MEDS: HUMALOG SQ PRN ×2 (12:47→23:22)
[2022-04-01] MEDS: HYDROCODONE-ACETAMIN 10-325 MG PO PRN ×2 (12:48→21:06)
--- NOTE | 2022-04-01 15:32 | PCM.NOTE ---
Date and Time: 04/01/22 1525 Subjective Assessment: His pain medicine is working fairly well except when he stands up. Tolerating dressing/packing changes well. continues to saturate packing with serosanguinous fluid. - Review of Systems Constitutional: No Fever Abdominal/Gastrointestinal: No Vomiting Objective Exam General Appearance: no apparent distress, alert Neurologic Exam: oriented x 3, cooperative Skin Exam: other (L buttock with linear gaping wound, packed; packing is soaked with serosanguinous fluid. Wound is approx 15cm long and is flanked by thickened erythematous to purple skin that looks chronic in nature. surrounding the wound is a large area of indurated skin without erythema.) Wound Assessment: Skin/Wound Assessment Wound/Incision Assessment Start: 03/29/22 20:00 Text: Status: Active Freq: Q6H Protocol: Document 04/01/22 14:00 AR (Rec: 04/01/22 14:29 AR [id number]) Wound/Incision Assessment Left Upper Buttock Wound Assessment Shift Assessment Wound Type Incision Wound Stage Non Pressure Wound Dressing Status Changed Drainage Amount Copious Drainage Description Serosanguineous General Appearance Reddened Length (cm) (cm) 14 Width (cm) (cm) 12 Surrounding Tissue Dark Red,Purple Secondary Dressing Absorbant Pad Comment old packing removed. repacked with iodiform, covered with abd pad and foam tape Wound Photo Photo Taken Yes Date: 04/01/22 Eye Exam: eyes nml inspection Ears, Nose, Throat Exam: moist mucous membranes Neck Exam: normal inspection Respiratory Exam: normal breath sounds, lungs clear, No crackles/rales, No rhonchi Cardiovascular Exam: regular rate/rhythm, normal heart sounds, No murmur Gastrointestinal/Abdomen Exam: soft, normal bowel sounds, No tenderness Extremity Exam: No pedal edema, No swelling Back Exam: normal inspection, No rash OBJECTIVE DATA Vital Signs: Vital Signs - 24 hr Temp Pulse Resp BP Pulse Ox 04/01/22 12:00 98.2 F 97 H 23 194/90 93 L 04/01/22 10:05 93 L 04/01/22 08:00 99.5 F 87 20 147/79 92 L 04/01/22 04:00 98.3 F 76 18 154/73 95 03/31/22 23:37 98.8 F 78 18 130/72 95 03/31/22 20:00 98.6 F 76 18 141/74 96 03/31/22 19:39 92 L 03/31/22 16:00 98.4 F 87 16 155/88 93 L Pain Assessment - Last Documented Pain Intensity 8 Pain Scale Used [facility] Intake and Output: Intake & Output 03/30/22 03/31/22 04/01/22 04/02/22 11:59 11:59 11:59 11:59 Intake Total 2672 4287 6958 240 Output Total 1778 2200 3500 1000 Balance 896 5627 3458 -760 Weight 103.782 kg 108.9 kg 109.6 kg Lab Results: Lab Results-Last 24 Hours 03/31/22 03/31/22 04/01/22 Range/Units 16:33 20:54 05:25 WBC 13.7 H (4.0-10.5) x10^3/uL RBC 3.58 L (4.1-5.6) x10^6/uL Hgb 10.4 L (12.5-18.0) g/dL Hct 31.0 L (42-50) % MCV 86.6 (78-100) fL MCH 29.1 (26-32) pg MCHC 33.5 (32-36) g/dL RDW 12.2 (11.5-14.0) % Plt Count 411 (150-450) x10^3/uL MPV 9.5 (7.5-11.0) fL Gran % 70.4 H (36.0-66.0) % Immature Gran % (Auto) 4.5 H (0.00-0.4) % Nucleat RBC Rel Count 0.0 (0.00-0.1) % Eos # (Auto) 0.27 (0-0.5) x10^3/uL Immature Gran # (Auto) 0.61 H (0.00-0.03) x10^3u/L Absolute Lymphs (auto) 1.50 (1.0-4.6) x10^3/uL Absolute Monos (auto) 1.55 H (0.0-1.3) x10^3/uL Absolute Nucleated RBC 0.00 (0.00-0.01) x10^3u/L Lymphocytes % 11.0 L (24.0-44.0) % Monocytes % 11.3 (0.0-12.0) % Eosinophils % 2.0 (0.00-5.0) % Basophils % 0.8 (0.0-0.4) % Absolute Granulocytes 9.64 H (1.4-6.9) x10^3/uL Basophils # 0.11 (0-0.4) x10^3/uL Sodium (137-145) mmol/L Potassium (3.5-5.1) mmol/L Chloride (98-107) mmol/L Carbon Dioxide (22-30) mmol/L Anion Gap (5-15) MEQ/L BUN (9-20) mg/dL Creatinine (0.66-1.25) mg/dL Estimated GFR ML/MIN Glucose (74-106) mg/dL POC Glucometer 390 H 276 H (74 to 106) mg/dL Calcium (8.4-10.2) mg/dL Vancomycin Trough (10-20) ug/mL Slides for Path Review YES 04/01/22 04/01/22 04/01/22 Range/Units 05:25 07:34 09:50 WBC (4.0-10.5) x10^3/uL RBC (4.1-5.6) x10^6/uL Hgb (12.5-18.0) g/dL Hct (42-50) % MCV (78-100) fL MCH (26-32) pg MCHC (32-36) g/dL RDW (11.5-14.0) % Plt Count (150-450) x10^3/uL MPV (7.5-11.0) fL Gran % (36.0-66.0) % Immature Gran % (Auto) (0.00-0.4) % Nucleat RBC Rel Count (0.00-0.1) % Eos # (Auto) (0-0.5) x10^3/uL Immature Gran # (Auto) (0.00-0.03) x10^3u/L Absolute Lymphs (auto) (1.0-4.6) x10^3/uL Absolute Monos (auto) (0.0-1.3) x10^3/uL Absolute Nucleated RBC (0.00-0.01) x10^3u/L Lymphocytes % (24.0-44.0) % Monocytes % (0.0-12.0) % Eosinophils % (0.00-5.0) % Basophils % (0.0-0.4) % Absolute Granulocytes (1.4-6.9) x10^3/uL Basophils # (0-0.4) x10^3/uL Sodium 131 L (137-145) mmol/L Potassium 4.0 (3.5-5.1) mmol/L Chloride 98 (98-107) mmol/L Carbon Dioxide 28 (22-30) mmol/L Anion Gap 8.6 (5-15) MEQ/L BUN 13 (9-20) mg/dL Creatinine 0.90 (0.66-1.25) mg/dL Estimated GFR > 60.0 ML/MIN Glucose 140 H (74-106) mg/dL POC Glucometer 129 H (74 to 106) mg/dL Calcium 7.5 L (8.4-10.2) mg/dL Vancomycin Trough 13.62 (10-20) ug/mL Slides for Path Review 04/01/22 Range/Units 12:07 WBC (4.0-10.5) x10^3/uL RBC (4.1-5.6) x10^6/uL Hgb (12.5-18.0) g/dL Hct (42-50) % MCV (78-100) fL MCH (26-32) pg MCHC (32-36) g/dL RDW (11.5-14.0) % Plt Count (150-450) x10^3/uL MPV (7.5-11.0) fL Gran % (36.0-66.0) % Immature Gran % (Auto) (0.00-0.4) % Nucleat RBC Rel Count (0.00-0.1) % Eos # (Auto) (0-0.5) x10^3/uL Immature Gran # (Auto) (0.00-0.03) x10^3u/L Absolute Lymphs (auto) (1.0-4.6) x10^3/uL Absolute Monos (auto) (0.0-1.3) x10^3/uL Absolute Nucleated RBC (0.00-0.01) x10^3u/L Lymphocytes % (24.0-44.0) % Monocytes % (0.0-12.0) % Eosinophils % (0.00-5.0) % Basophils % (0.0-0.4) % Absolute Granulocytes (1.4-6.9) x10^3/uL Basophils # (0-0.4) x10^3/uL Sodium (137-145) mmol/L Potassium (3.5-5.1) mmol/L Chloride (98-107) mmol/L Carbon Dioxide (22-30) mmol/L Anion Gap (5-15) MEQ/L BUN (9-20) mg/dL Creatinine (0.66-1.25) mg/dL Estimated GFR ML/MIN Glucose (74-106) mg/dL POC Glucometer 257 H (74 to 106) mg/dL Calcium (8.4-10.2) mg/dL Vancomycin Trough (10-20) ug/mL Slides for Path Review Multi-Disciplinary Progress Notes: Multi-Disciplinary Progress Notes 04/01/22 09:01 Nutrition Note by Renay Bedoya F/u Note: Pt diet resumed to 2000CC with 100% po intake. I&D procedure on 03/30. adm weight 103.7kg; current weight 09.6kg. Labs 04/01 = Na 131, glu 129. goal of glu to decrease met; change to glu wnl. add goal #2) maintain po intake >=75%. Sending [id number] 30 mls tid with each meal to aid in wound healing. Will con't to monitor and f/u prn. T.BRENDAN Bedoya Initialized on 04/01/22 09:01 - END OF NOTE Assessment/Plan (1) Left buttock abscess Current Visit: Yes Status: Acute Assessment & Plan: Continues to drain serosanguinous fluid. On merrem/vancomycin day #3. Code(s): L02.31 - CUTANEOUS ABSCESS OF BUTTOCK (2) Hyperglycemia Current Visit: Yes Status: Chronic Assessment & Plan: BS better on lantus 40 units/d (in the 100s) Code(s): R73.9 - HYPERGLYCEMIA, UNSPECIFIED (3) Poorly controlled diabetes mellitus Current Visit: Yes Status: Chronic Code(s): E11.65 - TYPE 2 DIABETES MELLITUS WITH HYPERGLYCEMIA (4) HTN (hypertension) Current Visit: Yes Status: Chronic Qualifiers: Hypertension type: primary hypertension Qualified Code(s): I10 - Essential (primary) hypertension Code(s): I10 - ESSENTIAL (PRIMARY) HYPERTENSION (5) History of MRSA infection Current Visit: Yes Status: Resolved Code(s): Z86.14 - PERSONAL HISTORY OF METHICILLIN RESIS STAPH INFECTION
[2022-04-01] MEDS ORDERED: Lantus Insulin SQ SCH (22:00)
[2022-04-02] MEDS: Merrem 1 GM in Sodium Chloride 100ML MINI-BAG PLUS 100 ML IV SCH ×3 (00:57→17:26)
[2022-04-02] MEDS: VANCOMYCIN 1 GRAM/200 ML BAG 1 GM/200 ML PIGGYBACK IV SCH ×3 (02:23→18:13)
[2022-04-02] MEDS: HYDROCODONE-ACETAMIN 10-325 MG PO PRN ×2 (04:42→17:25)
[2022-04-02 05:26] LABS: Absolute Neutrophil Ct (ANC) 10.66 x10^3/uL (1.4-6.9); Basophil (Absolute #) 0.09 x10^3/uL (0-0.4); Hematocrit 33.1 % (42-50); Hemoglobin 10.7 g/dL (12.5-18.0); Lymphocyte (Absolute #) 1.44 x10^3/uL (1.0-4.6); Lymphocytes % 9.7 % (24.0-44.0); Mean Cell Volume 86.2 fL (78-100); Mean Corpuscular Hemoglobin 27.9 pg (26-32); Mean Corpuscular Hgb Concent. 32.3 g/dL (32-36); Mean Platelet Volume 9.2 fL (7.5-11.0); Monocyte (Absolute #) 1.55 x10^3/uL (0.0-1.3); Monocytes % 10.5 % (0.0-12.0); Neutrophil % 72.3 % (36.0-66.0); Platelet Count 424 x10^3/uL (150-450); Red Blood Count 3.84 x10^6/uL (4.1-5.6); Red Cell Distribution Width 12.1 % (11.5-14.0); White Blood Count 14.8 x10^3/uL (4.0-10.5)
[2022-04-02] MEDS: Sodium Chloride 0.9% 1000 ML 1,000 ML IV SCH ×2 (06:07→18:01)
[2022-04-02 06:26] LABS: ANION GAP 8.9 MEQ/L (5-15); BLOOD UREA NITROGEN 11 mg/dL (9-20); CHLORIDE 100 mmol/L (98-107); Calcium 7.6 mg/dL (8.4-10.2); Carbon Dioxide 26 mmol/L (22-30); Creatinine 1 0.73 mg/dL (0.66-1.25); EST GLOMERULAR FILTRATION RATE > 60.0 ML/MIN; Glucose 189 mg/dL (74-106); Potassium 3.9 mmol/L (3.5-5.1); SODIUM 131 mmol/L (137-145)
[2022-04-02 07:32] LABS: Slide Review 1 YES
[2022-04-02] MEDS: HUMALOG SQ PRN ×4 (07:57→22:04)
--- NOTE | 2022-04-02 09:01 | OP ---
SURGERY DATE/TIME: 03/30/2022 3117 PREOPERATIVE DIAGNOSIS: Major left buttock abscess. POSTOPERATIVE DIAGNOSIS: Major left buttock infection with a simple pocket and about 30 subpockets. PROCEDURE: Major I&D and packing. SURGEON: Yang Ferris M.D. ANESTHESIA: General. ESTIMATED BLOOD LOSS: 100 cc. INDICATION: The patient has a new abscess on the left buttock. It has been coming on for over a week. DESCRIPTION OF PROCEDURE: He was up in the bed. He was rolled right hip down and left hip up. Routine prep and drape. Sterile field created. A curvilinear incision along skin line as best as possible with electrocautery it was opened. It was more of a carbuncle. It had a large central pocket but then it had all these finger pockets numbering 20 to 30 and expressed pus or purulence out of each one of these. After this was all expressed the field is washed three or four times and then it was packed with 0.5 to 0.25 inch Iodoform. The patient tolerated the procedure satisfactory.
[2022-04-02] MEDS: PROTONIX 40 MG IV IV SCH (09:24)
[2022-04-02] MEDS: MORPHINE SULFATE 4 MG INJ IV PRN (09:36)
[2022-04-02] MEDS: Lantus Insulin SQ SCH (12:33)
[2022-04-02] MEDS: Zestril 10 MG PO SCH (18:01)
--- NOTE | 2022-04-02 18:21 | PCM.NOTE ---
Date and Time: 04/02/221816 Subjective Assessment: Patient was seen today while wound care was irrigating and changing packing. B/P has been up and is not on antihypertensive meds,is asymptomatic and no chest pain. Is on oral pain meds but is not asking for meds even though he is uncomfortable so will schedule [place] 10/325. Surgery evaluated and will be a dding wound vac. Patient has good appetite and no new c/o. Objective Exam Wound Assessment: Skin/Wound Assessment Wound/Incision Assessment Start: 03/29/22 20:00 Text: Status: Active Freq: Q6H Protocol: Document 04/02/22 14:00 (Rec: 04/02/22 14:43 [id number]) Wound/Incision Assessment Left Upper Buttock Wound Assessment Shift Assessment Wound Type Incision Wound Stage Non Pressure Wound Dressing Status Changed Drainage Amount Moderate Drainage Description Serosanguineous Drainage Odor Mild Odor General Appearance Draining Wound Bed Greatest Portion Dusky Red,Yellow (Slough) Wound Bed Lesser Portion Red (Granulation) Surrounding Tissue Dark Red,Edematous Topical Solution/Irrigant Saline Irrigant Primary Dressing Absorbant Pad Secondary Dressing foam tape Comment iodoform packing, covered with abd pad and foam tape. due to location, dressing needs frequent reinforcement and continues to leak around dressing OBJECTIVE DATA Vital Signs: Vital Signs - 24 hr Temp Pulse Resp BP Pulse Ox 04/02/22 17:42 198/97 04/02/22 17:00 98.7 F 88 23 224/100 92 L 04/02/22 12:15 183/83 04/02/22 12:00 99.5 F 93 H 21 210/91 94 L 04/02/22 08:00 97.7 F 79 19 142/79 94 L 04/02/22 04:03 98.7 F 83 20 178/78 96 04/01/22 23:38 97.0 F 73 18 141/90 96 04/01/22 20:24 95 04/01/22 20:00 98.5 F 78 20 168/81 96 Pain Assessment - Last Documented Pain Intensity 9 Pain Scale Used 0-10 Pain Scale Intake and Output: Intake & Output 03/31/22 04/01/22 04/02/22 04/03/22 11:59 11:59 11:59 11:59 Intake Total 4287 6958 4200 1966 Output Total 2200 3500 2600 500 Balance 8194 3421 5014 1466 Weight 108.9 kg 109.6 kg 110.6 kg Lab Results: Lab Results-Last 24 Hours 04/01/22 04/02/22 04/02/22 Range/Units 21:52 04:30 04:30 WBC 14.8 H (4.0-10.5) x10^3/uL RBC 3.84 L (4.1-5.6) x10^6/uL Hgb 10.7 L (12.5-18.0) g/dL Hct 33.1 L (42-50) % MCV 86.2 (78-100) fL MCH 27.9 (26-32) pg MCHC 32.3 (32-36) g/dL RDW 12.1 (11.5-14.0) % Plt Count 424 (150-450) x10^3/uL MPV 9.2 (7.5-11.0) fL Gran % 72.3 H (36.0-66.0) % Immature Gran % (Auto) 4.9 H (0.00-0.4) % Nucleat RBC Rel Count 0.0 (0.00-0.1) % Eos # (Auto) 0.30 (0-0.5) x10^3/uL Immature Gran # (Auto) 0.73 H (0.00-0.03) x10^3u/L Absolute Lymphs (auto) 1.44 (1.0-4.6) x10^3/uL Absolute Monos (auto) 1.55 H (0.0-1.3) x10^3/uL Absolute Nucleated RBC 0.00 (0.00-0.01) x10^3u/L Lymphocytes % 9.7 L (24.0-44.0) % Monocytes % 10.5 (0.0-12.0) % Eosinophils % 2.0 (0.00-5.0) % Basophils % 0.6 (0.0-0.4) % Absolute Granulocytes 10.66 H (1.4-6.9) x10^3/uL Basophils # 0.09 (0-0.4) x10^3/uL Sodium 131 L (137-145) mmol/L Potassium 3.9 (3.5-5.1) mmol/L Chloride 100 (98-107) mmol/L Carbon Dioxide 26 (22-30) mmol/L Anion Gap 8.9 (5-15) MEQ/L BUN 11 (9-20) mg/dL Creatinine 0.73 (0.66-1.25) mg/dL Estimated GFR > 60.0 ML/MIN Glucose 189 H (74-106) mg/dL POC Glucometer 292 H (74 to 106) mg/dL Calcium 7.6 L (8.4-10.2) mg/dL Slides for Path Review YES 04/02/22 04/02/22 04/02/22 Range/Units 07:47 11:55 16:21 WBC (4.0-10.5) x10^3/uL RBC (4.1-5.6) x10^6/uL Hgb (12.5-18.0) g/dL Hct (42-50) % MCV (78-100) fL MCH (26-32) pg MCHC (32-36) g/dL RDW (11.5-14.0) % Plt Count (150-450) x10^3/uL MPV (7.5-11.0) fL Gran % (36.0-66.0) % Immature Gran % (Auto) (0.00-0.4) % Nucleat RBC Rel Count (0.00-0.1) % Eos # (Auto) (0-0.5) x10^3/uL Immature Gran # (Auto) (0.00-0.03) x10^3u/L Absolute Lymphs (auto) (1.0-4.6) x10^3/uL Absolute Monos (auto) (0.0-1.3) x10^3/uL Absolute Nucleated RBC (0.00-0.01) x10^3u/L Lymphocytes % (24.0-44.0) % Monocytes % (0.0-12.0) % Eosinophils % (0.00-5.0) % Basophils % (0.0-0.4) % Absolute Granulocytes (1.4-6.9) x10^3/uL Basophils # (0-0.4) x10^3/uL Sodium (137-145) mmol/L Potassium (3.5-5.1) mmol/L Chloride (98-107) mmol/L Carbon Dioxide (22-30) mmol/L Anion Gap (5-15) MEQ/L BUN (9-20) mg/dL Creatinine (0.66-1.25) mg/dL Estimated GFR ML/MIN Glucose (74-106) mg/dL POC Glucometer 151 H 228 H 310 H (74 to 106) mg/dL Calcium (8.4-10.2) mg/dL Slides for Path Review Multi-Disciplinary Progress Notes: Multi-Disciplinary Progress Notes 04/02/22 12:06 Case Management Note by Christina Cordova HELPED NURSING CHANGE DRESSING- SHE FEELS PATIENT NEEDS WOUND VAC FOR PROPER TREATMENT. PRIMARY NURSE TO CHECK WITH SURGEON WHEN HE ROUNDS. ALREADY REACHED OUT TO [employer] TO START PROCESS PAPERWORK WILL NEED SIGNED BY SURGEON IF ORDERED ALSO S/W PATIENT ABOUT PLANS AT [place]. THIS STATION INSPECTOR SUGGESTED REHAB FOR COMBINATION OF WOUND CARE AND ANTIBIOTIC THERAPY PATIENT REPORTS HE HAS NO TRANSPORTATION. PATIENT ALSO UNABLE TO AFFORD MEDICATIONS. PATIENT AGREEABLE. ALSO S/W - SHE IS AGREEABLE TO THIS WELL. THEY WOULD LIKE PATIENT TO STAY IN TOWN AND GO TO [facility]. Initialized on 04/02/22 12:06 - END OF NOTE
[2022-04-02] MEDS: HYDROCODONE-ACETAMIN 10-325 MG PO SCH (22:04)
[2022-04-03] MEDS: Merrem 1 GM in Sodium Chloride 100ML MINI-BAG PLUS 100 ML IV SCH ×3 (01:30→17:14)
[2022-04-03] MEDS: Sodium Chloride 0.9% 1000 ML 1,000 ML IV SCH ×2 (01:43→22:35)
[2022-04-03] MEDS: HYDROCODONE-ACETAMIN 10-325 MG PO SCH ×6 (01:57→22:29)
[2022-04-03] MEDS: VANCOMYCIN 1 GRAM/200 ML BAG 1 GM/200 ML PIGGYBACK IV SCH ×3 (01:58→18:10)
[2022-04-03 05:28] LABS: Absolute Neutrophil Ct (ANC) 13.24 x10^3/uL (1.4-6.9); Eosinophil (Absolute #) 0.35 x10^3/uL (0-0.5); Hematocrit 32.5 % (42-50); Hemoglobin 10.7 g/dL (12.5-18.0); Lymphocyte (Absolute #) 1.58 x10^3/uL (1.0-4.6); Lymphocytes % 8.9 % (24.0-44.0); Mean Cell Volume 86.2 fL (78-100); Mean Corpuscular Hemoglobin 28.4 pg (26-32); Mean Corpuscular Hgb Concent. 32.9 g/dL (32-36); Mean Platelet Volume 9.1 fL (7.5-11.0); Monocyte (Absolute #) 1.84 x10^3/uL (0.0-1.3); Monocytes % 10.3 % (0.0-12.0); Neutrophil % 74.2 % (36.0-66.0); Platelet Count 449 x10^3/uL (150-450); Red Blood Count 3.77 x10^6/uL (4.1-5.6); Red Cell Distribution Width 12.6 % (11.5-14.0); White Blood Count 17.8 x10^3/uL (4.0-10.5)
[2022-04-03 05:49] LABS: ANION GAP 9.1 MEQ/L (5-15); BLOOD UREA NITROGEN 12 mg/dL (9-20); CHLORIDE 98 mmol/L (98-107); Calcium 7.7 mg/dL (8.4-10.2); Carbon Dioxide 27 mmol/L (22-30); Creatinine 1 0.77 mg/dL (0.66-1.25); EST GLOMERULAR FILTRATION RATE > 60.0 ML/MIN; Glucose 164 mg/dL (74-106); Potassium 3.8 mmol/L (3.5-5.1); SODIUM 130 mmol/L (137-145)
[2022-04-03 07:30] LABS: Slide Review 1 YES
[2022-04-03] MEDS: PROTONIX 40 MG IV IV SCH (08:52)
[2022-04-03] MEDS: Zestril 10 MG PO SCH ×2 (08:54→22:29)
[2022-04-03] MEDS: HUMALOG SQ PRN ×4 (08:55→22:29)
[2022-04-03] MEDS: Lantus Insulin SQ SCH (11:10)
[2022-04-03] MEDS: Levofloxacin 500MG/100ML D5W 500 MG/100 ML BAG IV SCH (13:38)
[2022-04-04] MEDS: Merrem 1 GM in Sodium Chloride 100ML MINI-BAG PLUS 100 ML IV SCH ×2 (01:07→09:24)
[2022-04-04] MEDS: HYDROCODONE-ACETAMIN 10-325 MG PO SCH ×6 (02:00→21:54)
[2022-04-04] MEDS: VANCOMYCIN 1 GRAM/200 ML BAG 1 GM/200 ML PIGGYBACK IV SCH ×3 (02:01→18:44)
[2022-04-04] MEDS: Sodium Chloride 0.9% 1000 ML 1,000 ML IV SCH ×2 (05:51→05:54)
[2022-04-04 05:59] LABS: Absolute Neutrophil Ct (ANC) 11.95 x10^3/uL (1.4-6.9); Basophil (Absolute #) 0.07 x10^3/uL (0-0.4); Eosinophil % 2.1 % (0.00-5.0); Eosinophil (Absolute #) 0.33 x10^3/uL (0-0.5); Hematocrit 31.8 % (42-50); Hemoglobin 10.1 g/dL (12.5-18.0); Lymphocytes % 8.7 % (24.0-44.0); Mean Cell Volume 88.6 fL (78-100); Mean Corpuscular Hemoglobin 28.1 pg (26-32); Mean Corpuscular Hgb Concent. 31.8 g/dL (32-36); Mean Platelet Volume 8.9 fL (7.5-11.0); Monocyte (Absolute #) 1.78 x10^3/uL (0.0-1.3); Monocytes % 11.1 % (0.0-12.0); Neutrophil % 74.4 % (36.0-66.0); Platelet Count 424 x10^3/uL (150-450); Red Blood Count 3.59 x10^6/uL (4.1-5.6); Red Cell Distribution Width 12.4 % (11.5-14.0); White Blood Count 16.1 x10^3/uL (4.0-10.5)
[2022-04-04 07:12] LABS: ANION GAP 9.7 MEQ/L (5-15); BLOOD UREA NITROGEN 14 mg/dL (9-20); CHLORIDE 101 mmol/L (98-107); Calcium 7.6 mg/dL (8.4-10.2); Carbon Dioxide 25 mmol/L (22-30); Creatinine 1 0.76 mg/dL (0.66-1.25); EST GLOMERULAR FILTRATION RATE > 60.0 ML/MIN; Glucose 135 mg/dL (74-106); Potassium 3.8 mmol/L (3.5-5.1); SODIUM 132 mmol/L (137-145)
[2022-04-04 07:28] LABS: Slide Review 1 YES
[2022-04-04] MEDS: Lantus Insulin SQ SCH (09:30)
[2022-04-04] MEDS: Zestril 10 MG PO SCH ×2 (11:12→21:54)
[2022-04-04] MEDS: PROTONIX 40 MG IV IV SCH (11:12)
[2022-04-04] MEDS: Levofloxacin 500MG/100ML D5W 500 MG/100 ML BAG IV SCH (11:17)
--- NOTE | 2022-04-04 11:30 | XRAY ---
Exam: AP portable chest film from 1009 hrs. on 04/04/2022. Comparison: PA chest film from an acute abdominal series dated 03/28/2018. Indication: PICC line placement. Findings: 2 images were obtained which revealed a right-sided PICC line coiled 180 on itself at the level of the right subclavian vein. The distal tip of the catheter appears to be pointing inferiorly and toward the right within the right axillary vein. The patient is rotated toward the right. Mild vascular congestion/hazy infiltrate is seen within the right lung. The left lung appears clear. Impression: 1. Rotated portable chest film revealing malplacement of right-sided PICC line with tip pointing inferiorly and toward the right within the right axillary vein. 2. Mild vascular congestion/edema or hazy infiltrate is seen within the right lung.
--- NOTE | 2022-04-04 11:36 | XRAY ---
Exam: AP portable supine chest film from 10:38 AM on 04/04/2022. Comparison: AP portable chest film from 10:09 AM on 04/04/2022. Indication: 51-year-old male with PICC line placement. Findings: 6 images are submitted for evaluation. The catheter is malpositioned on the first 3 images. On the fourth image, the right-sided PICC line tip appears to extend inferiorly into the projection of the right atrium. On the fifth image, the PICC line has been pulled back with the tip pointing inferiorly within the mid SVC. On the sixth image, the catheter tip appears to be very near the caval atrial junction pointing inferiorly. There is no pneumothorax. There appears to be some ill-defined infiltrate within the right lower lung field. This could be due to pneumonic infiltrate. Correlate clinically. I cannot exclude some concomitant plate atelectasis within the right lower lung field. The right upper lobe and left lung appear essentially clear. A prominent calcified lymph node is seen within the AP window on the left. The transverse heart size appears slightly enlarged, but there is some magnification on this AP portable technique. Also, the level of inspiration is not deep which accentuates the heart size. Impression: 1. On the last supine chest film, the tip of the PICC line catheter is seen close to the caval-atrial junction on the right pointing inferiorly. No pneumothorax is seen. 2. Mild hazy air space infiltrate with some probable concomitant plate atelectasis at the right lung base. This could reflect pneumonia.
[2022-04-04] MEDS ORDERED: TROUGH DRUG LEVELS IJ ONE (17:30)
[2022-04-04] MEDS: HUMALOG SQ PRN (21:55)
[2022-04-05] MEDS: Sodium Chloride 0.9% 1000 ML 1,000 ML IV SCH (02:44)
[2022-04-05] MEDS: HYDROCODONE-ACETAMIN 10-325 MG PO SCH ×4 (02:44→13:02)
[2022-04-05 05:00] LABS: Absolute Neutrophil Ct (ANC) 10.92 x10^3/uL (1.4-6.9); Basophil (Absolute #) 0.06 x10^3/uL (0-0.4); Eosinophil % 2.2 % (0.00-5.0); Eosinophil (Absolute #) 0.32 x10^3/uL (0-0.5); Hematocrit 30.8 % (42-50); Hemoglobin 9.9 g/dL (12.5-18.0); Lymphocyte (Absolute #) 1.28 x10^3/uL (1.0-4.6); Lymphocytes % 8.9 % (24.0-44.0); Mean Corpuscular Hgb Concent. 32.1 g/dL (32-36); Mean Platelet Volume 8.7 fL (7.5-11.0); Monocyte (Absolute #) 1.47 x10^3/uL (0.0-1.3); Monocytes % 10.2 % (0.0-12.0); Neutrophil % 75.7 % (36.0-66.0); Platelet Count 401 x10^3/uL (150-450); Red Blood Count 3.54 x10^6/uL (4.1-5.6); Red Cell Distribution Width 12.8 % (11.5-14.0); White Blood Count 14.4 x10^3/uL (4.0-10.5)
[2022-04-05 05:41] LABS: ANION GAP 8.4 MEQ/L (5-15); BLOOD UREA NITROGEN 14 mg/dL (9-20); CHLORIDE 100 mmol/L (98-107); Calcium 7.7 mg/dL (8.4-10.2); Carbon Dioxide 27 mmol/L (22-30); Creatinine 1 0.76 mg/dL (0.66-1.25); EST GLOMERULAR FILTRATION RATE > 60.0 ML/MIN; Glucose 135 mg/dL (74-106); Potassium 3.7 mmol/L (3.5-5.1); SODIUM 132 mmol/L (137-145)
[2022-04-05] MEDS: VANCOMYCIN 1 GRAM/200 ML BAG 1 GM/200 ML PIGGYBACK IV SCH (06:05)
[2022-04-05] MEDS: Lantus Insulin SQ SCH (08:44)
[2022-04-05] MEDS: Levofloxacin 500MG/100ML D5W 500 MG/100 ML BAG IV SCH (08:45)
[2022-04-05] MEDS: Zestril 10 MG PO SCH (08:45)
[2022-04-05] MEDS ORDERED: Protonix 40MG Tablet PO SCH (10:00)
[2022-04-05] MEDS: HUMALOG SQ PRN (13:20)
[2022-04-05] MEDS ORDERED: VANCOMYCIN 1 GRAM/200 ML BAG 1 GM/200 ML PIGGYBACK IV SCH (14:00)
[2022-04-05 14:30] VITALS: BP 132/62; PULSE 82; O2SAT 96
[2022-04-05] MEDS ORDERED: VANCOMYCIN 1.5 GRAM/300 ML BAG 1.5 GM/300 ML PIGGYBACK IV SCH (18:00)
== END 2022-04-05 14:05 | DRG 603 ==
LOC: ED 16:10 → MED SURG 20:04 → OBSVTOIN 03-30 08:15
PROVIDERS: ADMIT Family Medicine; ATTEND Family Medicine
DX: L02.31 Cutaneous abscess of buttock (principal); E11.65 Type 2 diabetes mellitus with hyperglycemia; I10 Essential (primary) hypertension; Z86.14 Personal history of Methicillin resistant Staphylococcus aureus infection; Z79.899 Other long term (current) drug therapy; Z20.828 Contact with and (suspected) exposure to other viral communicable diseases
CPT/HCPCS: 00300; 0241U; 36000; 36415; 45020; 71045; 72192; 80048; 80053; 80202; 81015; 82805; 82947; 82962; 83036; 83605; 85025; 85027; 87040; 87070; 87075; 87077; 87086; 87186; 94760; 96360; 96365; 96367; 96374; 96375; 97161; 97605; 99140; 99285; G0378; J0330; J1815; J1817; J1885; J1956; J2250; J2270; J2370; J2405; J2704; J3010; A9270-GY; J3370

== ENCOUNTER 2024-05-31 16:48 | Emergency (ER) | payer MEDICARE ==
--- NOTE | 2024-05-31 16:59 | ERPHSYRPT ---
- History of Present Illness Time Seen by Provider: 05/31/24 16:59 Source: patient Exam Limitations: clinical condition Physician History: The patient presents with urinary urgency and retracted penis. He describes it as an inability to stop the urge to urinate. No burning sensation during urination or penile discharge. He recalls a previous injury a few years ago from lifting a heavy load, which caused pain in the same area. He does have discomfort around his scrotum. He has a rash that itches slightly, which he attributes to 'the diaper things'. His recently assisted him in cleaning the area with a blue bottle solution, but the rash has worsened over the last night or so. He mentions experiencing abdominal pain and chills, stating he wakes up feeling very cold. No history of similar issues in the past. He has not been checking his blood sugar levels for the past three days due to running out of test strips. He takes two medications, described as 'two pens', but does not recall their names. He notes swelling in his foot, which is more pronounced today. No history of heart failure or kidney problems. He has not seen a doctor in over a year and is unsure who has been refilling his medications, which are managed through [facility]. Timing/Duration: week(s) (several) Severity: mild Modifying Factors: Improves With: nothing Associated Symptoms: abdominal pain, chills, rash, No nausea, No vomiting, No shortness of breath, No chest pain, No fever, No loss of appetite Allergies/Adverse Reactions: Penicillins Allergy (Mild, Verified 05/31/24 16:52) Rash Hx Tetanus, Diphtheria Vaccination/Date Given: Yes Hx Influenza Vaccination/Date Given: No Hx Pneumococcal Vaccination/Date Given: No - Review of Systems All Other Systems: Reviewed and Negative - Past Medical History Pertinent Past Medical History: Yes Neurological History: No Pertinent History ENT History: Other Cardiac History: Hypertension Respiratory History: No Pertinent History Endocrine Medical History: Diabetes Type II Musculoskeletal History: No Pertinent History GI Medical History: GERD History: No Pertinent History Psycho-Social History: No Pertinent History Male Reproductive Disorders: No Pertinent History Other Medical History: 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 Amputation of toes of right foot - Social History Smoking Status: Never smoker Exposure to second hand smoke: Yes Drug Use: none Patient Lives Alone: No - Nursing Vital Signs Nursing Vital Signs: Initial Vital Signs Blood Pressure 150/81 05/31/24 16:52 O2 Sat by Pulse Oximetry 97 05/31/24 16:52 Pain Scale Pain Intensity 0 - Physical Exam General Appearance: no apparent distress Respiratory Exam: normal breath sounds, No respiratory distress Cardiovascular Exam: regular rate/rhythm, normal heart sounds, capillary refill <2 sec, edema (2+) Gastrointestinal/Abdomen Exam: normal bowel sounds, distention, No tenderness, No guarding, No rebound Male Genitalia Exam: other (erythematous rash right groin, scrotus with white debris at glans), No testicular tenderness Back Exam: No CVA tenderness Extremity Exam: swelling, No tenderness Neurologic Exam: alert, oriented x 3, cooperative SpO2 Interpretation: normal O2 Delivery: Room Air - Course Nursing assessment & vital signs reviewed: Yes EKG Interpreted by Me: RATE (87), Sinus Rhythm, Right [place] Deviation, NORMAL INTERVALS, NORMAL QRS, Non-specific ST Changes Ordered Tests: Medication Summary Discontinued Medications Generic Name Dose Route Start Last Admin Trade Name Beba PRN Reason Stop Dose Admin Albuterol Sulfate 2.5 mg 05/31/24 18:28 05/31/24 18:49 Albuterol Sulfate 2.5 Mg/3 Ml Neb IH 05/31/24 18:29 2.5 mg STAT ONE Administration Albuterol Sulfate Confirm 05/31/24 18:47 Albuterol Sulfate 2.5 Mg/3 Ml Neb Administered 05/31/24 18:48 Dose 2.5 mg IH .STK-MED ONE Furosemide 40 mg 05/31/24 17:12 05/31/24 18:19 Furosemide 40 Mg/4 Ml Vial IV 05/31/24 17:13 Not Given STAT ONE Furosemide 40 mg 06/01/24 18:20 05/31/24 18:45 Furosemide 20 Mg Tablet PO 06/01/24 18:21 40 mg STAT ONE Administration Furosemide Confirm 05/31/24 18:37 Furosemide 40 Mg Tablet Administered 05/31/24 18:38 Dose 40 mg .ROUTE .STK-MED ONE Insulin Human Lispro 12 unit 05/31/24 18:27 05/31/24 18:44 Insulin Lispro 1 Unit SQ 05/31/24 18:28 12 unit STAT ONE Administration Insulin Human Lispro Confirm 05/31/24 18:43 Insulin Lispro 1 Unit Administered 05/31/24 18:44 Dose 12 unit .ROUTE .STK-MED ONE Nystatin 1 gm 05/31/24 22:00 05/31/24 17:38 Nystatin 15 Gm Powder TP 06/30/24 21:59 1 gm BID LEO Administration Nystatin Confirm 05/31/24 17:26 Nystatin 15 Gm Powder Administered 05/31/24 17:27 Dose 15 gm .ROUTE .STK-MED ONE Lab/Rad Data: Laboratory Result Diagrams 05/31/24 17:22 05/31/24 17:22 Laboratory Results 05/31/24 05/31/24 05/31/24 Range/Units 21:26 19:43 18:53 WBC (4.23-9.07) x10^3/uL RBC (4.63-6.08) x10^6/uL Hgb (13.7-17.5) g/dL Hct (40.1-51.0) % MCV (79.0-92.2) fL MCH (25.7-32.2) pg MCHC (32.3-36.5) g/dL RDW (11.6-14.4) % Plt Count (163-337) x10^3/uL MPV (9.4-12.4) fL Gran % (34.0-67.9) % Immature Gran % (Auto) (0.001-0.429) % Nucleat RBC Rel Count (0.00-0.2) % Eos # (Auto) (0.04-0.54) x10^3/uL Immature Gran # (Auto) (0.001-0.031) x10^3u/L Absolute Lymphs (auto) (1.32-3.57) x10^3/uL Absolute Monos (auto) (0.30-0.82) x10^3/uL Absolute Nucleated RBC (0.00-0.012) x10^3u/L Lymphocytes % (21.8-53.1) % Monocytes % (5.3-12.2) % Eosinophils % (0.8-7.0) % Basophils % (0.2-1.2) % Absolute Granulocytes (1.78-5.38) x10^3/uL Basophils # (0.01-0.08) x10^3/uL Sodium (135-145) mmol/L Potassium (3.5-5.1) mmol/L Chloride (98-107) mmol/L Carbon Dioxide (22-30) mmol/L Anion Gap (5-15) MEQ/L BUN (9-20) mg/dL Creatinine (0.66-1.25) mg/dL Estimated GFR ML/MIN Glucose (74-106) mg/dL POC Glucometer 290 H (74 to 106) mg/dL Hemoglobin A1c (4.5-6.0) % Lactic Acid (0.4-2.0) Calcium (8.4-10.2) mg/dL Magnesium (1.6-2.3) mg/dL Total Bilirubin (0.2-1.3) mg/dL AST (17-59) U/L ALT (0-50) U/L Alkaline Phosphatase (38-126) U/L Troponin I 0.015 (0.000-0.033) ng/mL NT-Pro-B Natriuret Pep 3390 (<300) pg/mL Serum Total Protein (6.3-8.2) g/dL Albumin (3.5-5.0) g/dL Triglycerides (30-150) mg/dL Cholesterol (50-200) mg/dL LDL Cholesterol (30-100) mg/dL HDL Cholesterol (40-60) mg/dL Heart Disease Risk Ratio Free T4 (0.78-2.19) ng/dL TSH 3rd Generation (0.470-4.680) mIU/L Urine Color (Yellow) Urine Appearance (Clear) Urine pH (4.6-8.0) Ur Specific [place] (1.005-1.030) Urine Protein (Negative) Urine Glucose (UA) (Negative) mg/dL Urine Ketones (Negative) Urine Blood (Negative) Urine Nitrite (Negative) Urine Bilirubin (Negative) Urine Urobilinogen (0.2) mg/dL Ur Leukocyte Esterase (Negative) U Hyaline Cast (Auto) (0-2) /LPF Urine Microscopic RBC (0-5) /HPF Urine Microscopic WBC (0-5) /HPF Ur Epithelial Cells (None Seen) /HPF Urine Bacteria (None Seen) /HPF Urine Culture Reflexed (NO) 05/31/24 05/31/24 05/31/24 Range/Units 18:53 18:43 17:24 WBC (4.23-9.07) x10^3/uL RBC (4.63-6.08) x10^6/uL Hgb (13.7-17.5) g/dL Hct (40.1-51.0) % MCV (79.0-92.2) fL MCH (25.7-32.2) pg MCHC (32.3-36.5) g/dL RDW (11.6-14.4) % Plt Count (163-337) x10^3/uL MPV (9.4-12.4) fL Gran % (34.0-67.9) % Immature Gran % (Auto) (0.001-0.429) % Nucleat RBC Rel Count (0.00-0.2) % Eos # (Auto) (0.04-0.54) x10^3/uL Immature Gran # (Auto) (0.001-0.031) x10^3u/L Absolute Lymphs (auto) (1.32-3.57) x10^3/uL Absolute Monos (auto) (0.30-0.82) x10^3/uL Absolute Nucleated RBC (0.00-0.012) x10^3u/L Lymphocytes % (21.8-53.1) % Monocytes % (5.3-12.2) % Eosinophils % (0.8-7.0) % Basophils % (0.2-1.2) % Absolute Granulocytes (1.78-5.38) x10^3/uL Basophils # (0.01-0.08) x10^3/uL Sodium (135-145) mmol/L Potassium (3.5-5.1) mmol/L Chloride (98-107) mmol/L Carbon Dioxide (22-30) mmol/L Anion Gap (5-15) MEQ/L BUN (9-20) mg/dL Creatinine (0.66-1.25) mg/dL Estimated GFR ML/MIN Glucose (74-106) mg/dL POC Glucometer (74 to 106) mg/dL Hemoglobin A1c 13.41 H (4.5-6.0) % Lactic Acid (0.4-2.0) Calcium (8.4-10.2) mg/dL Magnesium (1.6-2.3) mg/dL Total Bilirubin (0.2-1.3) mg/dL AST (17-59) U/L ALT (0-50) U/L Alkaline Phosphatase (38-126) U/L Troponin I (0.000-0.033) ng/mL NT-Pro-B Natriuret Pep (<300) pg/mL Serum Total Protein (6.3-8.2) g/dL Albumin (3.5-5.0) g/dL Triglycerides (30-150) mg/dL Cholesterol (50-200) mg/dL LDL Cholesterol (30-100) mg/dL HDL Cholesterol (40-60) mg/dL Heart Disease Risk Ratio Free T4 1.23 (0.78-2.19) ng/dL TSH 3rd Generation (0.470-4.680) mIU/L Urine Color Yellow (Yellow) Urine Appearance Clear (Clear) Urine pH 7.0 (4.6-8.0) Ur Specific [place] 1.010 (1.005-1.030) Urine Protein Trace A (Negative) Urine Glucose (UA) >=1000 A (Negative) mg/dL Urine Ketones Negative (Negative) Urine Blood Negative (Negative) Urine Nitrite Negative (Negative) Urine Bilirubin Negative (Negative) Urine Urobilinogen 0.2 (0.2) mg/dL Ur Leukocyte Esterase Negative (Negative) U Hyaline Cast (Auto) NONE SEEN (0-2) /LPF Urine Microscopic RBC 0-2 (0-5) /HPF Urine Microscopic WBC 0-2 (0-5) /HPF Ur Epithelial Cells None Seen (None Seen) /HPF Urine Bacteria None Seen (None Seen) /HPF Urine Culture Reflexed NO (NO) 05/31/24 05/31/24 05/31/24 Range/Units 17:22 17:22 17:22 WBC (4.23-9.07) x10^3/uL RBC (4.63-6.08) x10^6/uL Hgb (13.7-17.5) g/dL Hct (40.1-51.0) % MCV (79.0-92.2) fL MCH (25.7-32.2) pg MCHC (32.3-36.5) g/dL RDW (11.6-14.4) % Plt Count (163-337) x10^3/uL MPV (9.4-12.4) fL Gran % (34.0-67.9) % Immature Gran % (Auto) (0.001-0.429) % Nucleat RBC Rel Count (0.00-0.2) % Eos # (Auto) (0.04-0.54) x10^3/uL Immature Gran # (Auto) (0.001-0.031) x10^3u/L Absolute Lymphs (auto) (1.32-3.57) x10^3/uL Absolute Monos (auto) (0.30-0.82) x10^3/uL Absolute Nucleated RBC (0.00-0.012) x10^3u/L Lymphocytes % (21.8-53.1) % Monocytes % (5.3-12.2) % Eosinophils % (0.8-7.0) % Basophils % (0.2-1.2) % Absolute Granulocytes (1.78-5.38) x10^3/uL Basophils # (0.01-0.08) x10^3/uL Sodium 134 L (135-145) mmol/L Potassium 5.7 H (3.5-5.1) mmol/L Chloride 99 (98-107) mmol/L Carbon Dioxide 22 (22-30) mmol/L Anion Gap 19.0 H (5-15) MEQ/L BUN 55 H (9-20) mg/dL Creatinine 5.99 H (0.66-1.25) mg/dL Estimated GFR 10.6 ML/MIN Glucose 337 H (74-106) mg/dL POC Glucometer (74 to 106) mg/dL Hemoglobin A1c (4.5-6.0) % Lactic Acid (0.4-2.0) Calcium 8.9 (8.4-10.2) mg/dL Magnesium 2.0 (1.6-2.3) mg/dL Total Bilirubin 0.40 (0.2-1.3) mg/dL AST 13 L (17-59) U/L ALT 12 (0-50) U/L Alkaline Phosphatase 193 H (38-126) U/L Troponin I 0.021 (0.000-0.033) ng/mL NT-Pro-B Natriuret Pep (<300) pg/mL Serum Total Protein 7.0 (6.3-8.2) g/dL Albumin 3.5 (3.5-5.0) g/dL Triglycerides 218 H (30-150) mg/dL Cholesterol 164 (50-200) mg/dL LDL Cholesterol 90 (30-100) mg/dL HDL Cholesterol 24 L (40-60) mg/dL Heart Disease Risk Ratio 7.0 Free T4 (0.78-2.19) ng/dL TSH 3rd Generation 6.203 H (0.470-4.680) mIU/L Urine Color (Yellow) Urine Appearance (Clear) Urine pH (4.6-8.0) Ur Specific [place] (1.005-1.030) Urine Protein (Negative) Urine Glucose (UA) (Negative) mg/dL Urine Ketones (Negative) Urine Blood (Negative) Urine Nitrite (Negative) Urine Bilirubin (Negative) Urine Urobilinogen (0.2) mg/dL Ur Leukocyte Esterase (Negative) U Hyaline Cast (Auto) (0-2) /LPF Urine Microscopic RBC (0-5) /HPF Urine Microscopic WBC (0-5) /HPF Ur Epithelial Cells (None Seen) /HPF Urine Bacteria (None Seen) /HPF Urine Culture Reflexed (NO) 05/31/24 05/31/24 Range/Units 17:22 17:00 WBC 9.0 (4.23-9.07) x10^3/uL RBC 3.44 L (4.63-6.08) x10^6/uL Hgb 9.9 L (13.7-17.5) g/dL Hct 29.3 L (40.1-51.0) % MCV 85.2 (79.0-92.2) fL MCH 28.8 (25.7-32.2) pg MCHC 33.8 (32.3-36.5) g/dL RDW 12.8 (11.6-14.4) % Plt Count 406 H (163-337) x10^3/uL MPV 9.6 (9.4-12.4) fL Gran % 72.9 H (34.0-67.9) % Immature Gran % (Auto) 0.3 (0.001-0.429) % Nucleat RBC Rel Count 0.0 (0.00-0.2) % Eos # (Auto) 0.36 (0.04-0.54) x10^3/uL Immature Gran # (Auto) 0.03 (0.001-0.031) x10^3u/L Absolute Lymphs (auto) 1.13 L (1.32-3.57) x10^3/uL Absolute Monos (auto) 0.86 H (0.30-0.82) x10^3/uL Absolute Nucleated RBC 0.00 (0.00-0.012) x10^3u/L Lymphocytes % 12.5 L (21.8-53.1) % Monocytes % 9.5 (5.3-12.2) % Eosinophils % 4.0 (0.8-7.0) % Basophils % 0.8 (0.2-1.2) % Absolute Granulocytes 6.59 H (1.78-5.38) x10^3/uL Basophils # 0.07 (0.01-0.08) x10^3/uL Sodium (135-145) mmol/L Potassium (3.5-5.1) mmol/L Chloride (98-107) mmol/L Carbon Dioxide (22-30) mmol/L Anion Gap (5-15) MEQ/L BUN (9-20) mg/dL Creatinine (0.66-1.25) mg/dL Estimated GFR ML/MIN Glucose (74-106) mg/dL POC Glucometer (74 to 106) mg/dL Hemoglobin A1c (4.5-6.0) % Lactic Acid 1.8 (0.4-2.0) Calcium (8.4-10.2) mg/dL Magnesium (1.6-2.3) mg/dL Total Bilirubin (0.2-1.3) mg/dL AST (17-59) U/L ALT (0-50) U/L Alkaline Phosphatase (38-126) U/L Troponin I (0.000-0.033) ng/mL NT-Pro-B Natriuret Pep (<300) pg/mL Serum Total Protein (6.3-8.2) g/dL Albumin (3.5-5.0) g/dL Triglycerides (30-150) mg/dL Cholesterol (50-200) mg/dL LDL Cholesterol (30-100) mg/dL HDL Cholesterol (40-60) mg/dL Heart Disease Risk Ratio Free T4 (0.78-2.19) ng/dL TSH 3rd Generation (0.470-4.680) mIU/L Urine Color (Yellow) Urine Appearance (Clear) Urine pH (4.6-8.0) Ur Specific [place] (1.005-1.030) Urine Protein (Negative) Urine Glucose (UA) (Negative) mg/dL Urine Ketones (Negative) Urine Blood (Negative) Urine Nitrite (Negative) Urine Bilirubin (Negative) Urine Urobilinogen (0.2) mg/dL Ur Leukocyte Esterase (Negative) U Hyaline Cast (Auto) (0-2) /LPF Urine Microscopic RBC (0-5) /HPF Urine Microscopic WBC (0-5) /HPF Ur Epithelial Cells (None Seen) /HPF Urine Bacteria (None Seen) /HPF Urine Culture Reflexed (NO) - Progress Progress: improved Progress Note: Patient found to be in acute renal failure with Cr 5.99, K 5.7. Glucose elevated 350s, 12u lispro given. 40mg PO Lasix given. Nystatin powder placed over groin. Kuo cath relieved 1200cc of urine. Patient will need transfer in case dialysis is needed. Discussed case with marketing planning manager Dr. Campo who agrees to consult on patient. Waiting to discuss admission with hospitalist at shift change 1900. Counseled pt/family regarding: lab results, diagnosis, need for follow-up, rad results Medical Desision Making - Diagnostic Testing Diagnostic test were ordered, analyzed, and reviewed by me: Yes Radiological Interpretation: Interpreted by me, Reviewed by me, Teleradiologist Report - Risk of complications The pt has a mod risk of morbidity or mortality based on: Need for prescription drug management The pt has a high risk of morbidity or mortality based on: Decision regarding hospitilization or escalation of hosp level of care - Departure Departure Disposition: Transfer Clinical Impression: Acute kidney failure, Uncontrolled diabetes mellitus, Hyperglycemia, Hyperkalemia, Anemia, Elevated TSH, Urinary retention, Balanitis, Fungal infection of the groin Condition: Stable Critical Care Time: No Referrals: [facility] [LOCATION] - Follow up/PCP as directed Instructions: Urinary Retention (DC)
[2024-05-31 17:03] VITALS: TEMP 97.2
[2024-05-31 17:23] LABS: Absolute Neutrophil Ct (ANC) 6.59 x10^3/uL (1.78-5.38); BASOPHIL % 0.8 % (0.2-1.2); Basophil (Absolute #) 0.07 x10^3/uL (0.01-0.08); Eosinophil (Absolute #) 0.36 x10^3/uL (0.04-0.54); Hematocrit 29.3 % (40.1-51.0); Hemoglobin 9.9 g/dL (13.7-17.5); IMMATURE GRAN # 0.03 x10^3u/L (0.001-0.031); IMMATURE GRAN % 0.3 % (0.001-0.429); Lymphocyte (Absolute #) 1.13 x10^3/uL (1.32-3.57); Lymphocytes % 12.5 % (21.8-53.1); Mean Cell Volume 85.2 fL (79.0-92.2); Mean Corpuscular Hemoglobin 28.8 pg (25.7-32.2); Mean Corpuscular Hgb Concent. 33.8 g/dL (32.3-36.5); Mean Platelet Volume 9.6 fL (9.4-12.4); Monocyte (Absolute #) 0.86 x10^3/uL (0.30-0.82); Monocytes % 9.5 % (5.3-12.2); Neutrophil % 72.9 % (34.0-67.9); Platelet Count 406 x10^3/uL (163-337); Red Blood Count 3.44 x10^6/uL (4.63-6.08); Red Cell Distribution Width 12.8 % (11.6-14.4)
[2024-05-31] MEDS ORDERED: NYSTOP POWDER 15 GM ONE (17:26)
[2024-05-31] MEDS: NYSTOP POWDER 15 GM TP SCH (17:38)
[2024-05-31 17:55] LABS: ALBUMIN 3.5 g/dL (3.5-5.0); BILIRUBIN,TOTAL 0.4 mg/dL (0.2-1.3); Calcium 8.9 mg/dL (8.4-10.2); Creatinine 1 5.99 mg/dL (0.66-1.25); EST GLOMERULAR FILTRATION RATE 10.6 ML/MIN; Potassium 5.7 mmol/L (3.5-5.1)
[2024-05-31 18:13] LABS: TSH, 3RD Generation 6.203 mIU/L (0.470-4.680)
[2024-05-31] MEDS: Lasix 40 MG/4 ML IV ONE (18:19)
[2024-05-31] MEDS ORDERED: Lasix 40 MG ONE (18:37)
[2024-05-31] MEDS ORDERED: HUMALOG ONE (18:43)
[2024-05-31] MEDS: HUMALOG SQ ONE (18:44)
[2024-05-31] MEDS: LASIX 20 MG PO ONE (18:45)
[2024-05-31] MEDS ORDERED: PROVENTIL 2.5 MG/3 ML NEB IH ONE (18:47)
[2024-05-31] MEDS: PROVENTIL 2.5 MG/3 ML NEB IH ONE (18:49)
[2024-05-31 19:21] LABS: Appearance Clear (Clear); Bacteria None Seen /HPF (None Seen); Bilirubin Negative (Negative); Blood Negative (Negative); Epithelial Cells None Seen /HPF (None Seen); Glucose, Urine >=1000 mg/dL (Negative); Hyaline Casts NONE SEEN /LPF (0-2); Ketones Negative (Negative); Leukocyte Esterase Negative (Negative); Nitrite Negative (Negative); Protein,Urine Dip Trace (Negative); RBC 0-2 /HPF (0-5); Urobilinogen 0.2 mg/dL (0.2); WBC 0-2 /HPF (0-5)
[2024-05-31 21:55] VITALS: BP 175/94; PULSE 87; RESP 18; O2SAT 96
== END 2024-05-31 22:01 | disposition short-term general hospital (02) ==
LOC: ED 16:48
DX: N17.9 Acute kidney failure, unspecified (principal); E11.65 Type 2 diabetes mellitus with hyperglycemia; E87.5 Hyperkalemia; D64.9 Anemia, unspecified; R94.6 Abnormal results of thyroid function studies; R33.9 Retention of urine, unspecified; N48.1 Balanitis; B35.6 Tinea cruris; I10 Essential (primary) hypertension
CPT/HCPCS: 36000; 36415; 80053; 80061; 81001; 82947; 83036; 83605; 83721; 83735; 83880; 84439; 84443; 84484; 85025; 94640; 96372; 99285; P9612; J1817; J7609; A9270-GY